=== PATIENT | male | born 1960 | race Caucasian/White ===

== ENCOUNTER 2020-06-15 09:33 | Inpatient (IN) ==
--- NOTE | 2020-05-20 14:44 | PAT Medication Instructions ---
Medication Instructions Date of Service May 20, 2020 Home Medications aspirin 81 mg tablet,delayed release 81 mg PO QAM carvedilol 6.25 mg tablet 6.25 mg PO BID losartan 50 mg tablet 50 mg PO BID hydrochlorothiazide 12.5 mg tablet 12.5 mg PO QAM DO NOT take the morning of surgery losartan 50 mg tablet 50 mg PO BID hydrochlorothiazide 12.5 mg tablet 12.5 mg PO QAM Take morning of surgery With a small sip of water, OTHERWISE NOTHING TO EAT OR DRINK AFTER MIDNIGHT: aspirin 81 mg tablet,delayed release 81 mg PO QAM carvedilol 6.25 mg tablet 6.25 mg PO BID Take evening before surgery carvedilol 6.25 mg tablet 6.25 mg PO BID losartan 50 mg tablet 50 mg PO BID Other Notes If you have any questions please call us at [phone] or [phone] or [phone] or [phone]
--- NOTE | 2020-05-26 09:29 | Anesthesiology Consultation ---
Date of Service May 26, 2020 Assessment & Plan (1) Encounter for pre-operative examination: Chart Review Chart Review: Pending: Refer to Additional Notes / Consult section (pending PCP clearance 06/10 and preop Covid testing) and Patient seen in Pre Admission Testing Awaiting surgeon ordered PCP clearance scheduled 06/10 Per PAT appt on 05/26/20, patient denies any recent travel. No known Covid positive contacts or Covid related symptoms. No known Covid infection in the past 90 days. Preop Covid testing scheduled 06/10/20= will await results. Educated on importance of self quarantining, social distancing and wearing mask in public both for the patient and household contacts. Excision of gluteal cyst 10/18/18= Done under [facility] with LMA #5. Teaching & Discussion Pre-Anesthesia Teaching/Discussion Notes: Instructed NPO after midnight before surgery,except medications with 15 cc of water. Medication instructions provided according to the PAT guidelines. History Surgery Operation Date: 06/15/20 07:45 Proposed Procedures p L3-S1 Decompression and Fusion Spinal Cord Monitoring - Brad Dunbar DO Height/Weight Height: 5 ft 11 in Weight: 120.4 kg Allergies Allergy/AdvReac Type Severity Reaction Status Date / Time No Known Allergies Allergy Verified 05/06/20 12:39 Medications Home Medications Medication Instructions Recorded Confirmed Last Taken aspirin 81 mg tablet,delayed 81 mg PO QAM tab 09/28/18 05/06/20 09/11/19 08:00 release carvedilol 6.25 mg tablet 6.25 mg PO BID tab 09/28/18 05/06/20 09/18/19 06:30 losartan 50 mg tablet 50 mg PO BID tab 09/28/18 05/06/20 09/18/19 06:30 hydrochlorothiazide 12.5 mg tablet 12.5 mg PO QAM 03/30/20 05/06/20 Unknown Past Medical History Medical History Chronic back pain History of prostate cancer dx 03/2019. s/p radiation therapy (completed 04/27/2020) No issues currently Hypertension Obesity Exercise / Class Metabolic Activity II 4-5 Yardwork/Stairs/Walk up hill (ONE FLIGHT OF STAIRS - NO CHEST PAIN OR SOB ) Past Family History Family History Mother , age 81 heart disease FHx: abdominal aortic aneurysm Hypertension Father , lived with prostate cancer 35 years, age 99 old age Prostate cancer Brother Prostate cancer Sister Family hx colonic polyps PRE CANCEROUS POLYP Brother Prostate cancer age 65-had prostate removed, still alive and well Sister No problems noted. Sister Family hx colonic polyps Son No problems noted. Son No problems noted. Daughter No problems noted. Other No family history of adverse response to anesthesia Denies family history of Ovarian cancer Myocardial infarction Breast cancer Colorectal cancer Past Surgical History Surgical History H/O elbow surgery RIGHT ELBOW TENDON REPAIR, 2006 H/O excision of mass (10/18/18) Excision of Gluteal Cyst Dr. Ma 10-18-18-NO DIFFICULTY WITH ANESTHESIA THIS TIME-[facility] H/O retained foreign body fully removed [id number] related from welding History of back surgery 2009 Dr. Prescott & 2014 Dr. Dunbar History of colonoscopy (09/18/19) tubular adenoma and tubulovillous adenoma resected, recheck 3 years, Dr. Blanc History of difficult intubation T5 kyphoplasty with biopsy: 09/16/14: Grade view 1, Glidescope#4, ETT 7.5 at [facility] History of discectomy LUMBAR DISCECTOMY/LAMINECTOMY 2009 & 2014 History of herniorrhaphy RIGHT INGUINAL HERNIA-1989 History of kyphoplasty History of prostate biopsy History of tonsillectomy as a child Past Anesthesia History No Hx of Anesthesia Complications, Difficult Airway (per records ) and No Family Hx of Anesthesia Complications History of PONV No Hx of PONV and No Hx of Motion Sickness Social History Smoking Status: Never smoker tobacco type: smokeless tobacco Do You Dip or Chew Tobacco: No (quit 3 years ago) Hx Alcohol Use: Yes Alcohol type: beer alcohol intake frequency: a few times a week Hx Substance Use: No substance use type: does not use Review of Systems Occ snoring - no witnessed apnea. No hx of sleep study Patient denies chest pain, shortness of breath, dyspnea on exertion, reflux, cough, wheezing, palpitations. No hx of seizures, stroke, PA. No hx of blood clots or blood transfusions Physical Exam Vital Signs VITALS BP 136//84 P 64 TEMP 98.4 SP02 97% RESP 16 Constitutional no acute distress ENMT Mouth: + small oral opening; no TMJ clicking Thyromental Distance: < 3.5 Finger Breadths (2.5) Mallampati Class: III Missing right top side tooth Possible top front teeth crowned Molars crowned Missing molars Neck + short neck, + thick neck, + limited neck extension (mild ) and + facial hair (encouraged trimmed/shaved facial hair ) Respiratory normal respiratory effort; no respiratory distress Auscultation: lungs clear to auscultation bilaterally; no wheezes Cardiovascular Rate/Rhythm: regular rate and regular rhythm Heart Sounds: no murmur Vessels: no carotid bruit Musculoskeletal Spine: no pain with cervical ROM Extremities: extremities normal to inspection Psychiatric Orientation: alert Testing Laboratory Results 05/26/20 09:49 05/26/20 09:49 PT 10.3 Seconds (9.0-12.0) 05/26/20 09:49 INR 1.0 (0.9-1.1) 05/26/20 09:49 APTT 26.7 Seconds (21.0-31.0) 05/26/20 09:49 Urine Color Yellow 05/26/20 Unknown Urine Appearance Clear (Clear) 05/26/20 Unknown Urine pH 7.0 (4.5-7.5) 05/26/20 Unknown Ur Specific [place] 1.019 (1.000-1.030) 05/26/20 Unknown Urine Protein 1+ (Negative) H 05/26/20 Unknown Urine Glucose (UA) Negative (Negative) 05/26/20 Unknown Urine Ketones Negative (Negative) 05/26/20 Unknown Urine Nitrite Negative (Negative) 05/26/20 Unknown Ur Leukocyte Esterase Trace (Negative) H 05/26/20 Unknown Urine WBC (Auto) 5-10 /hpf (0-5) H 05/26/20 Unknown Urine RBC (Auto) 0-4 /hpf (0-4) 05/26/20 Unknown U Hyaline Cast (Auto) 1-5 /lpf (0-5) 05/26/20 Unknown U Epithel Cells (Auto) 5-10 /lpf (0-5) H 05/26/20 Unknown Urine Bacteria (Auto) Negative (Negative) 05/26/20 Unknown Blood Type O Negative 05/26/20 09:49 Antibody Screen NEGATIVE 05/26/20 09:49 Electrocardiogram Date: 05/26/20 Findings: + SB @ (59bpm) Otherwise normal EKG per cardio. Chest X-Ray Date: 05/26/20 Findings: + NAD Echocardiogram Date: 12/16/19 EF: 55-59% LV Function: normal RWMA: + none Other Findings: + LVH (Mild/concentric) and + diastolic dysfunction (Grade 2) Valvular Disease: + MR (Mild) Aortic root is mildly enlarged with diameter 4.3 cm. Small anterior loculated pericardial effusion is present. Cardiac tamponade is absent. Compared to the prior study dated 10/31/2017, the aortic root diameter was 4.2 cm at that time. A small loculated pericardial effusion is not present. ECHO 01/29/20 (to rule out pericarditis and monitor pericardial effusion)= Compared to last available study, there has been no interval change. Small, loculated anterior pericardial effusion remains unchanged. Tamponade physiology is absent.
--- NOTE | 2020-05-26 10:13 | XRay Report ---
XR chest Pre-admission PA/Lat CLINICAL HISTORY: Preoperative chest COMPARISON STUDY: 09/05/2014 FINDINGS: The cardiac and mediastinal contours are normal. There is no evidence of focal pulmonary co nsolidation. There is no evidence of failure. No pleural effusions are visualized.[There is evidence for a mid to upper thoracic vertebral body compression fracture with prior vertebroplasty. IMPRESSION: No active disease in the chest. ACT 112: Negative or not required by law. Electronically signed by: Frank Araiza M.D. 05/26/2020 10:12 AM
[2020-05-26 11:05] LABS: Basophils # (auto) 0.04 K/uL (0-0.2); Basophils % (auto) 0.5 %; Eosinophils # (auto) 0.19 K/uL (0-0.5); Eosinophils % (auto) 2.4 %; Hematocrit (blood only) 43.8 % (42-52); Hemoglobin 15.3 g/dL (14.0-18.0); Immature Granulocytes # (auto) 0.01 K/uL (0.00-0.02); Immature Granulocytes % (auto) 0.1 %; Lymphocytes # (auto) 0.66 K/uL (1.2-3.4); Lymphocytes % (auto) 8.4 %; Mean Corpuscular Hemoglobin 34.5 pg (25-34); Mean Corpuscular Hgb Conc 34.9 g/dL (32-36); Mean Corpuscular Volume 98.6 fL (80-100); Mean Platelet Volume 10.2 fL (7.4-10.4); Monocytes # (auto) 0.77 K/uL (0.11-0.59); Monocytes % (auto) 9.8 %; Neutrophils # (auto) 6.15 K/uL (1.4-6.5); Neutrophils % (auto) 78.8 %; Platelet Count 169 K/uL (130-400); RDW Coefficient of Variation 13.1 % (11.5-14.5); RDW Standard Deviation 47.5 fL (36.4-46.3); Red Blood Count 4.44 M/uL (4.7-6.1); White Blood Count 7.82 K/uL (4.8-10.8)
[2020-05-26 11:12] LABS: Appearance Urine Clear (Clear); Bacteria Urine Automated Negative (Negative); Bilirubin Urine Negative (Negative); Blood Urine Negative (Negative); Color Urine Yellow; Glucose Urine UA Negative (Negative); Ketones Urine Negative (Negative); Leukocyte Esterase Urine Trace (Negative); Nitrite Urine Negative (Negative); Protein Urine 1+ (Negative); RBC Urine Automated 0-4 /hpf (0-4); Specific Gravity Urine 1.019 (1.000-1.030); Urobilinogen Urine Negative (Negative)
[2020-05-26 11:19] LABS: Partial Thromboplastin Time 26.7 Seconds (21.0-31.0); Prothrombin Time 10.3 Seconds (9.0-12.0)
[2020-05-26 12:09] LABS: BUN Creatinine Ratio 10.5 (10-20); Calcium 10.1 mg/dl (8.5-10.1); Creatinine Clr Calc Pharmacy 90.3 ml/min; Est GFR (African American) 81.2; Potassium 4.4 mmol/L (3.5-5.1)
--- NOTE | 2020-05-27 06:12 | Electrocardiogram Report ---
Test Reason : Blood Pressure : / mmHG Vent. Rate : 059 BPM Atrial Rate : 059 BPM P-R Int : 196 ms QRS Dur : 088 ms QT Int : 426 ms P-R-T Axes : 058 075 078 degrees QTc Int : 421 ms Sinus bradycardia Otherwise normal ECG When compared with ECG of 11-OCT-2018 07:54, No significant change was found Confirmed by Ran Wilcox ([id number]) on 05/27/2020 6:12:21 AM Referred By: Brad Dunbar Confirmed By:Ran Wilcox
[~2020-06-15 09:33] MED LIST: ACETAMINOPHEN 500 MG TAB PO SCH; CeleBREX 200 MG CAP PO SCH; GABAPENTIN 600 MG DOSE PO SCH; LR 15ML/HR IV SCH
[2020-06-15] MEDS ORDERED: ceFAZolin 3000MG/72.5 ML BAG IV ONE (09:53)
[2020-06-15] MEDS ORDERED: LABETALOL HCL IV 5 MG/ML 20ML IV PRN (10:49)
[2020-06-15] MEDS ORDERED: PROMETHAZINE HCL 12.5 MG in SODIUM CHLORIDE 0.9% 50 ML IV PRN ×2 (10:49→16:05)
[2020-06-15] MEDS ORDERED: ATROPINE SULFATE 0.1 MG/ML 10ML SYR IV PRN (10:49)
[2020-06-15] MEDS ORDERED: ePHEDrine sulfate 50 MG/ML AMP IV PRN (10:49)
[2020-06-15] MEDS ORDERED: ONDANSETRON INJ 2 MG/ML 2 ML VIAL IV PRN ×2 (10:49→16:05)
[2020-06-15] MEDS ORDERED: FLUMAZENIL 0.1 MG/1 ML 10 ML VIAL IV PRN (10:49)
[2020-06-15] MEDS ORDERED: NALOXONE HCL 0.4 MG/1 ML VIAL/CARP IV PRN ×2 (10:49→16:05)
[2020-06-15] MEDS ORDERED: fentaNYL citrate 100 MCG/2 ML VIAL IV PRN (10:49)
[2020-06-15] MEDS ORDERED: HYDROmorphone INJ 1 MG/ML SYRINGE IV PRN ×2 (10:49→16:05)
--- NOTE | 2020-06-15 11:08 | History & Physical Bridge Note ---
Date of Service June 15, 2020 History & Physical Bridge Note I have examined the patient, reviewed the History & Physical and in the interval since the performance of the History & Physical I have noted the following changes of clinical significance: no changes noted
--- NOTE | 2020-06-15 11:09 | History & Physical Report ---
Date of Service June 15, 2020 Assessment & Plan (1) Neurogenic claudication due to lumbar spinal stenosis: Admission and Anticipated Discharge Date Admission Date: L3-S1 decompression fusion History of Present Illness Chief Complaint: Back and bilateral leg pain Primary Care Provider: Edwin Guzman MD This is a 60-year-old male who presents with chronic persistent back and bilateral leg pain. Failing since course of nonoperative care is here for surgical invention. Allergies Allergy/AdvReac Type Severity Reaction Status Date / Time No Known Allergies Allergy Verified 06/15/20 10:03 Home Medications Medication Instructions Recorded Confirmed Type aspirin 81 mg tablet,delayed 81 mg PO QAM tab 09/28/18 06/15/20 History release carvedilol 6.25 mg tablet 6.25 mg PO BID tab 09/28/18 06/15/20 History losartan 50 mg tablet 50 mg PO BID tab 09/28/18 06/15/20 History hydrochlorothiazide 12.5 mg tablet 12.5 mg PO QAM 03/30/20 06/15/20 History Past Med/Surg History Medical History (Updated 06/15/20 @ 11:09 by Brad Dunbar, DO) Aortic root dilatation 4.3cm per 12/2019 ECHO Chronic back pain Dyslipidemia Borderline History of prostate cancer dx 03/2019. s/p radiation therapy (completed 04/27/2020) No issues currently Hypertension Obesity Surgical History H/O elbow surgery RIGHT ELBOW TENDON REPAIR, 2006 H/O excision of mass (10/18/18) Excision of Gluteal Cyst Dr. Ma 8-8--NO DIFFICULTY WITH ANESTHESIA THIS TIME-[facility] H/O retained foreign body fully removed [id number] related from welding History of back surgery 2009 Dr. Prescott & 2014 Dr. Dunbar History of colonoscopy (09/18/19) tubular adenoma and tubulovillous adenoma resected, recheck 3 years, Case History of difficult intubation T5 kyphoplasty with biopsy: 09/16/14: Grade view 1, Glidescope#4, ETT 7.5 at [facility] History of discectomy LUMBAR DISCECTOMY/LAMINECTOMY 2009 & 2014 History of herniorrhaphy RIGHT INGUINAL HERNIA-1989 History of kyphoplasty History of prostate biopsy History of tonsillectomy as a child Family History Mother FHx: abdominal aortic aneurysm Hypertension Father Prostate cancer Brother Prostate cancer Sister Family hx colonic polyps Brother Prostate cancer Sister No problems noted. Sister Family hx colonic polyps Son No problems noted. Son No problems noted. Daughter No problems noted. Other No family history of adverse response to anesthesia Denies family history of Ovarian cancer Myocardial infarction Breast cancer Colorectal cancer Social History Smoking Status: Never smoker Second Hand Exposure: No; Do You Dip or Chew Tobacco: No (quit 3 years ago); Tobacco Cessation Education Requested by Patient: No Hx Alcohol Use: Yes Alcohol type: beer Hx Substance Use: No Preferred Language: Faroese Communication Ability: Effective Visual Impairment: No Limitations Hearing Ability: Normal Inseamer Required: No Beliefs That Will Affect Care: None marital status: Current Living Situation: Spouse and Family current occupational status: retired 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
[2020-06-15] MEDS ORDERED: BACITRACIN INJ 50,000 UNIT VIAL ONE (11:19)
[2020-06-15] MEDS ORDERED: BUPIVACAINE/EPINEPHRINE 0.5% MPF 1:200,000 30 ML VIAL ONE (11:19)
[2020-06-15] MEDS ORDERED: MIDAZOLAM HCL 1 MG/ML 2ML VIAL ONE (11:24)
[2020-06-15] MEDS ORDERED: fentaNYL citrate 100 MCG/2 ML VIAL ONE (11:25)
[2020-06-15] MEDS ORDERED: SUCCINYLCHOLINE CHLORIDE 20 MG/ML 10 ML VIAL IV ONE (12:02)
[2020-06-15] MEDS ORDERED: ROCURONIUM BROMIDE 10 MG/ML 5 ML VIAL IV ONE ×5 (12:06→12:07)
[2020-06-15] MEDS ORDERED: HYDROmorphone INJ 2 MG/ML SYR/VIAL ONE (12:07)
[2020-06-15] MEDS ORDERED: DEXAMETHASONE SOD INJ 4 MG/ML VIAL ONE (12:09)
[2020-06-15] MEDS ORDERED: ONDANSETRON INJ 2 MG/ML 2 ML VIAL ONE (12:09)
[2020-06-15] MEDS ORDERED: METOCLOPRAMIDE HCL INJ 5 MG/ML 2 ML VIAL ONE (12:09)
[2020-06-15] MEDS ORDERED: PHENYLEPHRINE 100MCG/ML 5ML SYR ONE (12:09)
[2020-06-15] MEDS ORDERED: FLOSEAL HEMOSTATIC MATRIX 10ML TOP ONE (12:22)
[2020-06-15] MEDS ORDERED: ePHEDrine sulfate 50 MG/ML SYR ONE ×2 (12:27→13:37)
[2020-06-15] MEDS ORDERED: SUGAMMADEX SODIUM 200 MG/2 ML VIAL IV ONE (13:59)
--- NOTE | 2020-06-15 14:04 | Operative Report ---
Post Operative Report Pre & Post Diagnosis Operation Date: 06/15/20 11:25 Pre-Op Diagnosis: Spinal Stenosis Lumbar Region with Neurogenic Claudication Post-Op Diagnosis: Spinal Stenosis Lumbar Region with Neurogenic Claudication I identified the patient and participated in the time-out.: Yes Procedure Operation Date: 06/15/20 11:25 Actual Procedures #1 Revision decompression with bilateral medial facetectomies and foraminotomies L2-3, L3-4, L4-5 and L5-S1. #2 posterior spinal fusion L3-S1. #3 placement posterior segmental instrumentation L3-S1. #4 interbody fusion L4- 5 and L5-S1. #5 placement peek cage 10 x 26 mm L4-5 and 10 x 26 mm at L5-S1. #6 placement locally harvested morselized autograft in the posterior lateral gutters. #7 placement infuse collagen sponge, master graft in the posterior lateral gutters and I factor in the interbody space. Surgeon Brad Dunbar, DO Coach Mechanic Margarita Hilton Estimated Blood Loss 630 Findings See Below The patient is 5 foot 11 inches tall weighing over 121 kg with a BMI in excess of 37. This combined with an EBL greater than 600 cc created significant technical difficulty. He required her deepest retractors and longest instruments in order to perform his procedure. This at least 50% increase to the operative time. Specimens None Indications This is a 60-year-old male who presents above-mentioned diagnosis after failing since course of nonoperative care is here for surgical intervention. Description of Procedure Patient was met with identified informed consent obtained. Patient was then taken to the operative suite underwent a patient placed in a prone position the Morris table top Lalo frame. All bony prominences well-padded eyes inspected to ensure no external pressure placed upon the. This point lumbar spine was prepped and draped in normal sterile fashion. Sharp dissection with the assistance of Bovie cautery performed down to and exposing the remaining lamina and transverse processes of L3-L4-L5 and sacral ala bilaterally. From caudal to cephalad fashion revision complete laminectomy of L5 L4 L3 and partial laminectomy of L2 was performed including bilateral medial facetectomies and foraminotomies addressing severe spinal stenosis. Pedicle screws were then pl aced in L3-L4-L5 and S1 levels with the assistance of fluoroscopy and the purposes gabrielle placed. By way of a transfemoral approach on right a complete discectomy of L5-S1 was performed endplates curetted to subcortical bleeding bone and a 10 x 26 mm peek cage filled with I factor tapped into position. Then proceeded L4-L5 again by way of a transforaminal portion right complete discectomy performed endplates curetted to subcortical bleeding bone and again an 11 x 26 mm peek cage filled with I factor was tapped in position. The rods were then locked into final position bilaterally. The transverse processes of L3-L4-L5 and sacral ala burred to subcortical bleeding bone. Infuse collagen sponge combined master graft local autograft was then placed in the posterior gutters. 15 round GABE drain inserted. The incision was then closed with 1 Vicryl fascia 2-0 Vicryl subcutaneously and 4 Monocryl for final skin closure. Steri-Strip sterile dressings placed. Patient waken taken to PACU stable condition. Please note spinal cord monitoring was utilized at the procedure no changes noted. Lastly Margarita Hilton was present at the entire procedure involved the patient positioning complex portions of the surgery and final skin closure. I attest to the content of the Intraoperative Record and any orders documented therein. Any exceptions are noted below.
[2020-06-15] MEDS ORDERED: KETOROLAC 30 MG/ML VIAL ONE (14:06)
--- NOTE | 2020-06-15 14:16 | Fluoroscopy Report ---
FL lumbar spine 2-3V CLINICAL HISTORY: L3-S1 DECOMPRESSION AND FUSION COMPARISON STUDY: Lumbar spine radiographs May 09, 2014. FLUOROSCOPY TIME: 26 seconds. FLUOROSCOPIC IMAGES: 2 FINDINGS: Fluoroscopy was provided during L4-L5 and L5-S1 discectomies with interbody spacer placemen t. Posterior decompression is noted. There are bilateral pedicle screws at the L3, L4, L5 and S1 leve ls. Hardware is intact. IMPRESSION: Fluoroscopy provided during L4-L5 and L5-S1 discectomies with posterior decompression an d L3-S1 bilateral pedicle screw fusion. ACT 112: Negative or not required by law. Electronically signed by: Som Tong M.D. 06/15/2020 2:14 PM
--- NOTE | 2020-06-15 15:08 | Anesthesiology Progress Note ---
Date of Service June 15, 2020 Anesthesia Post Procedure Vital Signs Vital Signs: Temp Pulse Pulse Resp BP Pulse Ox 06/15/20 14:55 79 16 124/82 99 06/15/20 14:45 75 16 132/94 99 06/15/20 14:35 36.6 C 90 16 148/89 H 99 06/15/20 14:29 36.6 C 91 H 16 160/96 H 97 06/15/20 10:05 36.8 C 66 18 178/89 H 96 Transfer of Care Handoff Completed per policy Notes Mental Status: alert / awake / arousable Patient Amnestic to Procedure: Yes Nausea / Vomiting: adequately controlled Pain: adequately controlled Airway Patency, RR, SpO2: stable & adequate BP & HR: stable & adequate Hydration State: stable & adequate Anesthetic Complications: no major complications apparent
[2020-06-15 15:16] LABS: Hematocrit (blood only) 40.2 % (42-52); Hemoglobin 14.4 g/dL (14.0-18.0)
[2020-06-15] MEDS ORDERED: ACETAMINOPHEN 500 MG TAB PO PRN (16:05)
[2020-06-15] MEDS ORDERED: DO NOT ADMINISTER PNEUMOCOCCAL VACCINE PRN (16:05)
[2020-06-15] MEDS ORDERED: HYDROmorphone INJ 0.5 MG/0.5 ML SYR IV PRN (16:05)
[2020-06-15] MEDS ORDERED: bisacodyL 10 MG SUPP PR PRN (16:05)
[2020-06-15] MEDS ORDERED: hydrOXYzine HCl 25 MG TAB PO PRN (16:05)
[2020-06-15] MEDS ORDERED: ONDANSETRON 4 MG OD TAB PO PRN (16:05)
[2020-06-15] MEDS ORDERED: traMADol HCL 50 MG TABLET PO PRN (16:05)
[2020-06-15] MEDS ORDERED: FAMOTIDINE 20 MG TAB PO PRN (16:05)
[2020-06-15] MEDS ORDERED: LORazepam 0.5 MG TAB PO PRN (16:05)
[2020-06-15] MEDS ORDERED: LORazepam 0.5 MG/1 ML VIAL IV PRN (16:05)
[2020-06-15] MEDS ORDERED: DO NOT ADMINISTER FLU VACCINE PRN (16:05)
[2020-06-15] MEDS ORDERED: MAGNESIUM HYDROXIDE SUSP 30 ML UDC PO PRN (16:05)
[2020-06-15] MEDS ORDERED: diphenhydrAMINE Capsule 25 MG CAP PO PRN (16:05)
[2020-06-15] MEDS ORDERED: SOD PHOSPHATE/SOD BIPHOSPHATE ENEMA 132 ML BTL PR PRN (16:05)
[2020-06-15] MEDS ORDERED: METOCLOPRAMIDE HCL INJ 5 MG/ML 2 ML VIAL IV PRN (16:05)
[2020-06-15] MEDS ORDERED: ALUMINUM/MAGNESIUM SUSP 30 ML UDC PO PRN (16:05)
[2020-06-15] MEDS ORDERED: ACETAMINOPHEN 1,000 MG/100 ML VIAL IV PRN (16:05)
[2020-06-15] MEDS: KETOROLAC TROMETHAMINE 15 MG/ML VIAL IV SCH ×2 (16:58→22:23)
--- NOTE | 2020-06-15 17:20 | Hospitalist Consultation ---
Date of Consultation June 15, 2020 Assessment & Plan (1) Neurogenic claudication due to lumbar spinal stenosis: * POD#0 s/p: * #1 Revision decompression with bilateral medial facetectomies and foraminotomies L2-3, L3-4, L4-5 and L5-S1. #2 posterior spinal fusion L3-S1. #3 placement posterior segmental instrumentation L3-S1. #4 interbody fusion L4-5 and L5-S1. #5 placement peek cage 10 x 26 mm L4-5 and 10 x 26 mm at L5- S1. #6 placement locally harvested morselized autograft in the posterior lateral gutters. #7 placement infuse collagen sponge, master graft in the posterior lateral gutters and I factor in the interbody space. * PT/OT/pain management/bowel regimen per primary service * Pre-op h/h 15.3/43.8. EBL 630cc with repeat h/h 14.4/40 and will monitor on AM CBC (2) Hypertension: * Chronic. Follows with [facility]. Had seen incidental dilated aortic root 4.3cm on most recent echo with small incidental pericardial effusion (unchanged on repeat ECHO) * On carvedilol 6.25mg BID, HCTZ 12.5mg and losartan 50mg BID --> of note, most recent cardiology notes show increase in HCTZ to 25mg daily for elevated BPs * Will hold HCTZ and Losartan post-operatively (BP 117/76 but currently 131/86) and will resume in AM if BP tolerates and kidney function stable * Also on ASA 81mg daily for prevention -- will check with Dr. Dunbar about giving this as already ordered for AM (3) Prostate cancer: * s/p TURP Mar 2019 and completed radiation therapy Apr [address] Pardo and to have surveillence with PSA's in 3 months from that time * Has not needed any medications to help with flow * Monitor UO after alvarado d/c'd (4) DVT prophylaxis: * SCDs, clinton diggs * chemoprophylaxis held in setting of back surgery Dispo: plans for d/c home possible per his conversation with Dr. Dunbar Thank you for allowing hospitalist service to participate in the care of Mr. Valente. Hospitalist service will follow along. Supervising Physician Co-Signing Physician Notes Patient was seen and examined independently I discussed the case with Monica valdez PAC I reviewed pertinent past medical social family history and also the plan of care and agree with the plan of care. Patient underwent L3 S1 decompression fusion with Dr. Dunbar. Has a history of prostate cancer status post resection and radiation. Hypertension. Follows [facility] cardiology. And dilated aortic root which is unchanged on last imaging study. We will hold antihypertensives and diuretics in the morning continuing a beta-cuate of carvedilol and aspirin is continued after confirming Dr. Dunbar he is okay with that. Examination is unremarkable heart is regular lungs are clear he has good distal strength and sensation in his lower extremities Any exceptions will be noted below History of Present Illness Reason for Consultation: medical management Requesting Physician: Dr Dunbar Attending Physician: Brad Dunbar, History of Present Illness 60 year old male with PMHx significant for HTN, Prostate CA (completed radiation, discharged Apr 2020 with survellience in 3 months PSA), low back pain presented for L3-S1 decompression/fusion with Dr. Dunbar. Seen sitting up in chair eating dinner. His primary symptom prior to surgery was weakness in his legs when standing for extended periods of time. Pain currently primarily incisional and low back pain controlled (chronic). Eating/drinking without difficulty. Maintained alvarado for now. Plans for discharge, likely per his conversation with Dr. Dunbar, to home. Will have PT/OT evals tomorrow. Discussed increased HCTZ dose by cardiology at most recent visit for elevated pressures but we will hold HCTZ/losartan unless BP becomes significantly elevated and wait for kidney function eval on AM labs and BP monitoring prior to resuming. GABE drain emptied twice since arriving back from surgery. No fever, chills, chest pain, shortness of breath, abdominal pain, nausea, vomiting or dysuria reported. Questions/concerns addressed at this time. Allergies Allergy/AdvReac Type Severity Reaction Status Date / Time No Known Allergies Allergy Verified 06/15/20 10:03 Home Medications Medication Instructions Recorded Confirmed Type aspirin 81 mg tablet,delayed 81 mg PO QAM tab 09/28/18 06/15/20 History release carvedilol 6.25 mg tablet 6.25 mg PO BID tab 09/28/18 06/15/20 History losartan 50 mg tablet 50 mg PO BID tab 09/28/18 06/15/20 History hydrochlorothiazide 12.5 mg tablet 25 mg PO QAM 03/30/20 06/15/20 History Patient History Medical History (Updated 06/15/20 @ 17:39 by Monica Valdez PA-C) Aortic root dilatation 4.3cm per 12/2019 ECHO -- unchanged on repeat prior to surgery Chronic back pain Dyslipidemia Borderline History of prostate cancer dx 03/2019. s/p radiation therapy (completed 04/27/2020) No issues currently Hypertension Obesity Surgical History H/O elbow surgery RIGHT ELBOW TENDON REPAIR, 2006 H/O excision of mass (10/18/18) Excision of Gluteal Cyst Dr. Ma 10-18-18-NO DIFFICULTY WITH ANESTHESIA THIS TIME-[facility] H/O retained foreign body fully removed [id number] related from welding History of back surgery 2009 Dr. Prescott & 2014 Dr. Dunbar History of colonoscopy (09/18/19) tubular adenoma and tubulovillous adenoma resected, recheck 3 years, Case History of difficult intubation T5 kyphoplasty with biopsy: 09/16/14: Grade view 1, Glidescope#4, ETT 7.5 at [facility] History of discectomy LUMBAR DISCECTOMY/LAMINECTOMY 2009 & 2014 History of herniorrhaphy RIGHT INGUINAL HERNIA-1989 History of kyphoplasty History of prostate biopsy History of tonsillectomy as a child Family History Mother , age 81 heart disease FHx: abdominal aortic aneurysm Hypertension Father , lived with prostate cancer 35 years, age 99 old age Prostate cancer Brother Prostate cancer Sister Family hx colonic polyps PRE CANCEROUS POLYP Brother Prostate cancer age 65-had prostate removed, still alive and well Sister No problems noted. Sister Family hx colonic polyps Son No problems noted. Son No problems noted. Daughter No problems noted. Other No family history of adverse response to anesthesia Denies family history of Ovarian cancer Myocardial infarction Breast cancer Colorectal cancer Social History Smoking Status: Never smoker Second Hand Exposure: No; Do You Dip or Chew Tobacco: No (quit 3 years ago); Tobacco Cessation Education Requested by Patient: No Hx Alcohol Use: Yes Alcohol type: beer Hx Substance Use: No Preferred Language: Sami Communication Ability: Effective Visual Impairment: No Limitations Hearing Ability: Normal Government Auditor Required: No Beliefs That Will Affect Care: None marital status: Current Living Situation: Spouse and Family current occupational status: retired 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 [employer] Feels Safe at Home: Yes Safety Concerns: Feels Safe At This Time during the past year weight has: remained stable Dental Care, Regularly: No Physical Activity Frequency: 1-2 Times per Week Assistive Devices: Walker Review of Systems Review of Systems: All systems reviewed & are unremarkable except as noted in HPI & below Physical Exam Constitutional: WD/WN, vitals as above + obese, cooperative and comfortable; no acute distress Eyes: + anicteric sclerae and PERRL ENMT: Ears: no hearing impairment and no external ear abnormality Neck: normal visual inspection and trachea midline Respiratory: normal respiratory effort, lungs clear to auscultation Auscultation: + diminished lung sounds (bases) Cardiovascular: RRR, no murmur, no edema Gastrointestinal (Abdomen): normal bowel sounds, soft, nontender, no hepatosplenomegaly Musculoskeletal: no cyanosis or clubbing, extremities motor strength 5/5 (GABE drain with 50cc bloody drainage. dressing to lumbar spine c/d/i) NVI, pulses palpable bilaterally 5/5 dorsiflexion/plantar flexion and flexion/extension at knee and hip slightly tender to palpation around incision Skin: no rashes, warm and dry Neurologic: patellar DTR's 2+ bilat, sensation intact and PERRL, EOMI, accommodation nl, no face palsy, no dysarthria Psychiatric: A+Ox3, euthymic affect Genitourinary: alvarado draining yellow urine Results & Data Results & Data ([facility]) Vital Signs (Past 12 Hours) Vital Signs Temp Pulse Pulse Resp BP BP Pulse Ox 06/15/20 16:34 36.5 C 71 16 117/76 95 06/15/20 16:07 36.5 C 73 18 131/84 98 06/15/20 15:30 36.8 C 77 18 122/84 98 06/15/20 15:15 36.6 C 71 16 133/66 98 06/15/20 15:05 36.6 C 72 16 128/75 98 06/15/20 14:55 79 16 124/82 99 06/15/20 14:45 75 16 132/94 99 06/15/20 14:35 36.6 C 90 16 148/89 H 99 06/15/20 14:29 36.6 C 91 H 16 160/96 H 97 06/15/20 10:05 36.8 C 66 18 178/89 H 96 PG Care Time/CCT Total # of Minutes Spent Total Time Spent with Patient: Total time spent is greater than 50% in coordination of care (as documented) at patient's floor/unit and/or counseling patient: Coding Level of Care Code 24549 Inpt Consult Level 3 Diagnoses Neurogenic claudication due to lumbar spinal stenosis M48.062 Hypertension I10 Prostate cancer C61 DVT prophylaxis Z29.9
[2020-06-15] MEDS ORDERED: hydrALAZINE HCL 20 MG/ML VIAL IV PRN (17:46)
[2020-06-15] MEDS: ceFAZolin 2000MG 2,000 MG/15 ML SYR IV SCH (18:02)
[2020-06-15] MEDS: LACTATED RINGER'S 1,000 ML IV SCH ×2 (18:03→23:04)
[2020-06-15] MEDS: DOCUSATE SODIUM/SENNA 50/8.6MG TAB PO SCH (21:06)
[2020-06-15] MEDS: carvediloL 6.25 MG TAB PO SCH (21:06)
[2020-06-16] MEDS: ceFAZolin 2000MG 2,000 MG/15 ML SYR IV SCH (02:00)
[2020-06-16] MEDS: KETOROLAC TROMETHAMINE 15 MG/ML VIAL IV SCH ×2 (05:23→11:10)
[2020-06-16] MEDS: POLYETHYLENE (MIRALAX) 17 GM PACK PO SCH ×3 (05:23→17:26)
[2020-06-16] MEDS: LACTATED RINGER'S 1,000 ML IV SCH (06:00)
[2020-06-16 06:02] LABS: Basophils # (auto) 0.01 K/uL (0-0.2); Basophils % (auto) 0.1 %; Hematocrit (blood only) 34.2 % (42-52); Hemoglobin 11.8 g/dL (14.0-18.0); Immature Granulocytes # (auto) 0.01 K/uL (0.00-0.02); Immature Granulocytes % (auto) 0.1 %; Lymphocytes # (auto) 0.41 K/uL (1.2-3.4); Lymphocytes % (auto) 3.4 %; Mean Corpuscular Hemoglobin 33.8 pg (25-34); Mean Corpuscular Hgb Conc 34.5 g/dL (32-36); Mean Platelet Volume 10.4 fL (7.4-10.4); Monocytes # (auto) 0.74 K/uL (0.11-0.59); Monocytes % (auto) 6.1 %; Neutrophils # (auto) 10.98 K/uL (1.4-6.5); Neutrophils % (auto) 90.3 %; Platelet Count 129 K/uL (130-400); RDW Coefficient of Variation 12.9 % (11.5-14.5); RDW Standard Deviation 46.3 fL (36.4-46.3); Red Blood Count 3.49 M/uL (4.7-6.1); White Blood Count 12.15 K/uL (4.8-10.8)
[2020-06-16 06:36] LABS: BUN Creatinine Ratio 16.7 (10-20); Calcium 8.5 mg/dl (8.5-10.1); Creatinine Clr Calc Pharmacy 80.6 ml/min; Est GFR (African American) 70.4; Est GFR (Non-African American) 60.7; Potassium 4.7 mmol/L (3.5-5.1)
[2020-06-16] MEDS: ASPIRIN 81 MG ECTAB PO SCH (08:12)
[2020-06-16] MEDS: carvediloL 6.25 MG TAB PO SCH ×2 (08:12→22:07)
--- NOTE | 2020-06-16 08:19 | Hospitalist Progress Note ---
Date of Service June 16, 2020 Assessment & Plan (1) Neurogenic claudication due to lumbar spinal stenosis: * POD#1 s/p: * #1 Revision decompression with bilateral medial facetectomies and foraminotomies L2-3, L3-4, L4-5 and L5-S1. #2 posterior spinal fusion L3-S1. #3 placement posterior segmental instrumentation L3-S1. #4 interbody fusion L4-5 and L5-S1. #5 placement peek cage 10 x 26 mm L4-5 and 10 x 26 mm at L5- S1. #6 placement locally harvested morselized autograft in the posterior lateral gutters. #7 placement infuse collagen sponge, master graft in the posterior lateral gutters and I factor in the interbody space. * PT/OT/pain management/bowel regimen per primary service * Pre-op h/h 15.3/43.8. EBL 630cc + 595cc GABE output so far * Repeat h/h 11.8/34.2 -- acute blood loss anemia from surgery along with dilutional effect from IVF (500cc yesterday and additional 500cc for today) * WBC 12 -- ?stress from surgery as patient did not appear to get steroids. Afebrile. * Continue to monitor CBC in AM (2) Hypertension: * Chronic. Follows with [facility]. 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 * --> Will hold AM HCTZ 25mg but will resume Losartan for this evening as 500cc IVF ordered as well and patient encouraged to push oral fluids today * Also on ASA 81mg daily for prevention, continued as per discussion with Dr. Bettina CASTELLANOS (3) Prostate cancer: * s/p TURP Mar 2019 and completed radiation therapy Apr [address] Pardo and to have surveillence with PSA's in 3 months from that time * Has not needed any medications to help with flow * * --> Low output and placed on gentle IVF post-operatively with improvement of UO * Gonzalez discontinued TODAY --> HAS NOT VOIDED YET. * Continue to monitor -- UA pre-op with leuk est, WBC=Epi, no bacteria. No cx * Consider repeat if needed (4) DVT prophylaxis: * SCDs, clinton diggs * chemoprophylaxis held in setting of back surgery Dispo: plans for d/c home possible per his conversation with Dr. Dunbar Thank you for allowing hospitalist service to participate in the care of Mr. Valente. Hospitalist service will follow along. Admission and Anticipated Discharge Date Admission Date: June 15, 2020 Subjective Patient evaluated this morning. Doing well. Eating/drinking without difficulty. Moved his bowels. Had worked with therapy and did two laps this morning. Discomfort with bending forward but well controlled with ordered medications. Seen by Dr. Dunbar and planning on d/c home in next 1-2 days. GABE output decreased per patient as they have not had to empty as much today compared to after surgery. Discussed BP still controlled and Cr only slightly elevated and will resume his losartan this evening and HCTZ in the morning. Discussed urine output -- improved since last evening. Did have some increased pressure with gonzalez but since removed this morning feeling much better. Has not urinated since but denies increased frequency/urgency prior to procedure. Discussed pre-op UA and if develops symptoms or fever or further elevation in WBC will repeat. Encouraged PO fluid intake. No fever, chills, chest pain, shortness of breath, abdominal pain, nausea or vomiting at this time. Questions/concerns addressed. Review of Systems Review of Systems: All systems reviewed & are unremarkable except as noted in HPI & below Physical Exam Constitutional: WD/WN, vitals as above + obese, cooperative and comfortable; no acute distress Eyes: + anicteric sclerae and PERRL ENMT: Ears: no hearing impairment and no external ear abnormality Neck: normal visual inspection and trachea midline Respiratory: normal respiratory effort, lungs clear to auscultation Auscultation: + diminished lung sounds (bases) Cardiovascular: RRR, no murmur, no edema Gastrointestinal (Abdomen): normal bowel sounds, soft, nontender, no hepatosplenomegaly Musculoskeletal: no cyanosis or clubbing, extremities motor strength 5/5 (GABE drain with 50cc bloody drainage. dressing to lumbar spine c/d/i) Skin: no rashes, warm and dry Neurologic: patellar DTR's 2+ bilat, sensation intact and PERRL, EOMI, accommodation nl, no face palsy, no dysarthria Psychiatric: A+Ox3, euthymic affect Genitourinary: NO GONZALEZ Results & Data Results & Data ([facility]) Vital Signs (Past 12 Hours) Vital Signs Temp Pulse Pulse Resp BP Pulse Ox 06/16/20 07:48 36.5 C 70 18 132/80 100 06/16/20 02:40 36.5 C 67 16 112/72 98 06/15/20 22:18 36.4 C L 74 15 123/82 95 Laboratory Results 06/16/20 06/16/20 06/15/20 Range/Units 05:37 05:37 14:58 WBC 12.15 H (4.8-10.8) K/uL RBC 3.49 L (4.7-6.1) M/uL Hgb 11.8 L 14.4 (14.0-18.0) g/dL Hct 34.2 L 40.2 L (42-52) % MCV 98.0 (80-100) fL MCH 33.8 (25-34) pg MCHC 34.5 (32-36) g/dL RDW Std Deviation 46.3 (36.4-46.3) fL RDW Coeff of Jhon 12.9 (11.5-14.5) % Plt Count 129 L (130-400) K/uL MPV 10.4 (7.4-10.4) fL Immature Gran % (Auto) 0.1 % Neut % (Auto) 90.3 % Lymph % (Auto) 3.4 % [place] % (Auto) 6.1 % Eos % (Auto) 0.0 % Baso % (Auto) 0.1 % Neut # (Auto) 10.98 H (1.4-6.5) K/uL Lymph # (Auto) 0.41 L (1.2-3.4) K/uL [place] # (Auto) 0.74 H (0.11-0.59) K/uL Eos # (Auto) 0.00 (0-0.5) K/uL Baso # (Auto) 0.01 (0-0.2) K/uL Immature Gran # (Auto) 0.01 (0.00-0.02) K/uL Sodium 133 L (136-145) mmol/L Potassium 4.7 (3.5-5.1) mmol/L Chloride 99 (98-107) mmol/L Carbon Dioxide 28 (21-32) mmol/L Anion Gap 6.0 (3-11) BUN 21 H (7-18) mg/dl Creatinine 1.26 (0.6-1.4) mg/dl Est Cr Clr Drug Dosing 80.6 ml/min Est GFR ( Amer) 70.4 Est GFR (Non-Af Amer) 60.7 BUN/Creatinine Ratio 16.7 (10-20) Glucose 122 H (70-99) mg/dl Calcium 8.5 (8.5-10.1) mg/dl Hepatitis C Ab Screen (Neg) Blood Type Antibody Screen Crossmatch 06/15/20 06/15/20 Range/Units 09:55 09:55 WBC (4.8-10.8) K/uL RBC (4.7-6.1) M/uL Hgb (14.0-18.0) g/dL Hct (42-52) % MCV (80-100) fL MCH (25-34) pg MCHC (32-36) g/dL RDW Std Deviation (36.4-46.3) fL RDW Coeff of Jhon (11.5-14.5) % Plt Count (130-400) K/uL MPV (7.4-10.4) fL Immature Gran % (Auto) % Neut % (Auto) % Lymph % (Auto) % [place] % (Auto) % Eos % (Auto) % Baso % (Auto) % Neut # (Auto) (1.4-6.5) K/uL Lymph # (Auto) (1.2-3.4) K/uL [place] # (Auto) (0.11-0.59) K/uL Eos # (Auto) (0-0.5) K/uL Baso # (Auto) (0-0.2) K/uL Immature Gran # (Auto) (0.00-0.02) K/uL Sodium (136-145) mmol/L Potassium (3.5-5.1) mmol/L Chloride (98-107) mmol/L Carbon Dioxide (21-32) mmol/L Anion Gap (3-11) BUN (7-18) mg/dl Creatinine (0.6-1.4) mg/dl Est Cr Clr Drug Dosing ml/min Est GFR ( Amer) Est GFR (Non-Af Amer) BUN/Creatinine Ratio (10-20) Glucose (70-99) mg/dl Calcium (8.5-10.1) mg/dl Hepatitis C Ab Screen Neg (Neg) Blood Type O Negative Antibody Screen NEGATIVE Crossmatch See Detail PG Care Time/CCT Total # of Minutes Spent Total Time Spent with Patient: Total time spent is greater than 50% in coordination of care (as documented) at patient's floor/unit and/or counseling patient: Coding Level of Care Code 87206 Subseq Hosp Care Lvl 3 Diagnoses Neurogenic claudication due to lumbar spinal stenosis M48.062 Hypertension I10 Prostate cancer C61 DVT prophylaxis Z29.9
[2020-06-16] MEDS ORDERED: SODIUM CHLORIDE 0.9% 500 ML IV SCH (08:30)
[2020-06-16] MEDS ORDERED: hydroCHLOROthiazide 25 MG TAB PO SCH (09:00)
--- NOTE | 2020-06-16 13:04 | Orthopedic Progress Note ---
Date of Service June 16, 2020 Assessment & Plan (1) Neurogenic claudication due to lumbar spinal stenosis: Admission and Anticipated Discharge Date Admission Date: June 15, 2020 This time we will continue physical therapy monitor his GABE output hopefully discharge home in the next few days. Subjective Back pain controlled leg pain markedly improved. Physical Exam Physical Exam: Patient is in the chair at the bedside. Is good strength testing. Appears comfortable. Results & Data ([facility]) Vital Signs (Past 12 Hours) Vital Signs Temp Pulse Pulse Resp BP Pulse Ox 06/16/20 12:34 36.5 C 76 18 160/85 H 98 06/16/20 07:48 36.5 C 70 18 132/80 100 06/16/20 02:40 36.5 C 67 16 112/72 98
[2020-06-16] MEDS ORDERED: SODIUM CHLORIDE 0.9% 1000ML 500 ML IV ONE (15:58)
[2020-06-16] MEDS: DOCUSATE SODIUM/SENNA 50/8.6MG TAB PO SCH (22:07)
[2020-06-16] MEDS: oxyCODONE HCL IR 5 MG TAB (IMMEDIATE RELEASE) PO PRN (22:07)
[2020-06-16] MEDS: LOSARTAN POTASSIUM 50 MG TAB PO SCH (22:13)
[2020-06-17 06:39] LABS: Basophils # (auto) 0.01 K/uL (0-0.2); Basophils % (auto) 0.1 %; Eosinophils # (auto) 0.08 K/uL (0-0.5); Hematocrit (blood only) 34.4 % (42-52); Hemoglobin 11.8 g/dL (14.0-18.0); Immature Granulocytes # (auto) 0.01 K/uL (0.00-0.02); Immature Granulocytes % (auto) 0.1 %; Mean Corpuscular Hgb Conc 34.3 g/dL (32-36); Mean Corpuscular Volume 99.1 fL (80-100); Mean Platelet Volume 10.3 fL (7.4-10.4); Monocytes # (auto) 0.88 K/uL (0.11-0.59); Monocytes % (auto) 10.7 %; Neutrophils # (auto) 6.32 K/uL (1.4-6.5); Neutrophils % (auto) 77.1 %; Platelet Count 142 K/uL (130-400); RDW Coefficient of Variation 13.3 % (11.5-14.5); RDW Standard Deviation 47.6 fL (36.4-46.3); Red Blood Count 3.47 M/uL (4.7-6.1)
[2020-06-17] MEDS: ASPIRIN 81 MG ECTAB PO SCH (07:22)
[2020-06-17] MEDS: carvediloL 6.25 MG TAB PO SCH ×2 (07:22→20:48)
[2020-06-17] MEDS: LOSARTAN POTASSIUM 50 MG TAB PO SCH ×2 (07:22→20:48)
[2020-06-17] MEDS: dexAMETHasone 8 MG in SYRINGE 0 ML IV SCH (07:22)
[2020-06-17] MEDS: oxyCODONE HCL IR 5 MG TAB (IMMEDIATE RELEASE) PO PRN (07:24)
[2020-06-17 07:25] LABS: BUN Creatinine Ratio 18.6 (10-20); Calcium 8.7 mg/dl (8.5-10.1); Creatinine Clr Calc Pharmacy 102.6 ml/min; Est GFR (African American) 94.2; Est GFR (Non-African American) 81.3; Potassium 3.9 mmol/L (3.5-5.1)
--- NOTE | 2020-06-17 08:13 | Hospitalist Progress Note ---
Date of Service June 17, 2020 Assessment & Plan (1) Neurogenic claudication due to lumbar spinal stenosis: * POD#2 s/p: * #1 Revision decompression with bilateral medial facetectomies and foraminotomies L2-3, L3-4, L4-5 and L5-S1. #2 posterior spinal fusion L3-S1. #3 placement posterior segmental instrumentation L3-S1. #4 interbody fusion L4-5 and L5-S1. #5 placement peek cage 10 x 26 mm L4-5 and 10 x 26 mm at L5- S1. #6 placement locally harvested morselized autograft in the posterior lateral gutters. #7 placement infuse collagen sponge, master graft in the posterior lateral gutters and I factor in the interbody space. * PT/OT/pain management/bowel regimen per primary service * Pre-op h/h 15.3/43.8. EBL 630cc + 595cc GABE output on 06/16 --> decreased to 320cc today * Repeat h/h stable still at 11.8/34.4 despite getting IVF through yesterday -- acute blood loss anemia from surgery along with dilutional effect from IVF * WBC 8.2k, afebrile D/c per primary service to home pending drain output and evaluation today (2) Hypertension: * Chronic. Follows with [facility]. Had seen incidental dilated aortic root 4.3cm on most recent echo with small incidental pericardial effusion (unchanged on repeat ECHO) * On carvedilol 6.25mg BID, HCTZ 12.5mg and losartan 50mg BID --> of note, most recent cardiology notes show increase in HCTZ to 25mg daily for elevated BPs * Held HCTZ and Losartan post-operatively: * Resumed losartan last evneing for BP 156/89 * Kidney function stable but BP low normal and held HCTZ for this morning but resumed for tomorrow AM * Continued on ASA 81mg daily for prevention (3) Prostate cancer: * s/p TURP Mar 2019 and completed radiation therapy Apr [address] Pardo and to have surveillence with PSA's in 3 months from that time * Has not needed any medications to help with flow * IVF yesterday and improvement of UO since gonzalez removal (4) DVT prophylaxis: * SCDs, clinton diggs * chemoprophylaxis held in setting of back surgery Dispo: plans for d/c home possible per his conversation with Dr. Dunbar. Stable from medical standpoint today if drain removed vs having home health come to remove vs staying tomorrow per primary service. Thank you for allowing hospitalist service to participate in the care of Mr. Valente. Hospitalist service will sign off at this time. Please call with any questions/concerns. Admission and Anticipated Discharge Date Admission Date: June 15, 2020 Subjective Patient evaluated this morning. Doing great. Walking the halls. Pain controlled. Moving bowels and making good urine. Drain output decreased. Has not seen Dr Dunbar yet but discussed stable from medical standpoint and if drain output decreased and ok with Dr. Dunbar could potentially d/c today vs tomorrow at ortho discretion. Discussed resumed losartan last evening for elevated pressures and kidney function remains stable but with low BP this AM will continue to hold HCTZ for today and he can resume this medication in the morning. No fever, chills, chest pain, shortness of breath, abdominal pain or nausea at this time. Questions/concerns addressed. Review of Systems Review of Systems: All systems reviewed & are unremarkable except as noted in HPI & below Physical Exam Constitutional: WD/WN, vitals as above + obese, cooperative and comfortable (sitting upright in chair reading magazine); no acute distress Eyes: + anicteric sclerae and PERRL ENMT: Ears: no hearing impairment and no external ear abnormality Neck: normal visual inspection and trachea midline Respiratory: normal respiratory effort, lungs clear to auscultation Auscultation: + diminished lung sounds (bases) Cardiovascular: RRR, no murmur, no edema Extremities: no calf tenderness Gastrointestinal (Abdomen): normal bowel sounds, soft, nontender, no hepatosplenomegaly Musculoskeletal: no cyanosis or clubbing, extremities motor strength 5/5 (GABE drain 25cc bloody drainage. dressing to lumbar spine c/d/i. NVI) Skin: no rashes, warm and dry Neurologic: patellar DTR's 2+ bilat, sensation intact and PERRL, EOMI, accommodation nl, no face palsy, no dysarthria Psychiatric: A+Ox3, euthymic affect Genitourinary: NO GONZALEZ Results & Data Results & Data ([facility]) Vital Signs (Past 12 Hours) Vital Signs Temp Pulse Resp BP BP Pulse Ox 04/07/21 06:05 36.8 C 81 16 117/76 98 06/16/20 22:04 36.6 C 80 18 156/89 H 99 Laboratory Results 06/17/20 06/17/20 06/16/20 Range/Units 06:03 06:03 05:37 WBC 8.20 (4.8-10.8) K/uL RBC 3.47 L (4.7-6.1) M/uL Hgb 11.8 L (14.0-18.0) g/dL Hct 34.4 L (42-52) % MCV 99.1 (80-100) fL MCH 34.0 (25-34) pg MCHC 34.3 (32-36) g/dL RDW Std Deviation 47.6 H (36.4-46.3) fL RDW Coeff of Jhon 13.3 (11.5-14.5) % Plt Count 142 (130-400) K/uL MPV 10.3 (7.4-10.4) fL Immature Gran % (Auto) 0.1 % Neut % (Auto) 77.1 % Lymph % (Auto) 11.0 % [place] % (Auto) 10.7 % Eos % (Auto) 1.0 % Baso % (Auto) 0.1 % Neut # (Auto) 6.32 (1.4-6.5) K/uL Lymph # (Auto) 0.90 L (1.2-3.4) K/uL [place] # (Auto) 0.88 H (0.11-0.59) K/uL Eos # (Auto) 0.08 (0-0.5) K/uL Baso # (Auto) 0.01 (0-0.2) K/uL Immature Gran # (Auto) 0.01 (0.00-0.02) K/uL Sodium 136 (136-145) mmol/L Potassium 3.9 D (3.5-5.1) mmol/L Chloride 103 (98-107) mmol/L Carbon Dioxide 29 (21-32) mmol/L Anion Gap 4.0 (3-11) BUN 18 (7-18) mg/dl Creatinine 0.99 (0.6-1.4) mg/dl Est Cr Clr Drug Dosing 102.6 ml/min Est GFR ( Amer) 94.2 Est GFR (Non-Af Amer) 81.3 BUN/Creatinine Ratio 18.6 (10-20) Glucose 116 H (70-99) mg/dl Calcium 8.7 (8.5-10.1) mg/dl TSH 0.801 (0.300-4.500) uIu/ml Crossmatch 06/15/20 Range/Units 09:55 WBC (4.8-10.8) K/uL RBC (4.7-6.1) M/uL Hgb (14.0-18.0) g/dL Hct (42-52) % MCV (80-100) fL MCH (25-34) pg MCHC (32-36) g/dL RDW Std Deviation (36.4-46.3) fL RDW Coeff of Jhon (11.5-14.5) % Plt Count (130-400) K/uL MPV (7.4-10.4) fL Immature Gran % (Auto) % Neut % (Auto) % Lymph % (Auto) % [place] % (Auto) % Eos % (Auto) % Baso % (Auto) % Neut # (Auto) (1.4-6.5) K/uL Lymph # (Auto) (1.2-3.4) K/uL [place] # (Auto) (0.11-0.59) K/uL Eos # (Auto) (0-0.5) K/uL Baso # (Auto) (0-0.2) K/uL Immature Gran # (Auto) (0.00-0.02) K/uL Sodium (136-145) mmol/L Potassium (3.5-5.1) mmol/L Chloride (98-107) mmol/L Carbon Dioxide (21-32) mmol/L Anion Gap (3-11) BUN (7-18) mg/dl Creatinine (0.6-1.4) mg/dl Est Cr Clr Drug Dosing ml/min Est GFR ( Amer) Est GFR (Non-Af Amer) BUN/Creatinine Ratio (10-20) Glucose (70-99) mg/dl Calcium (8.5-10.1) mg/dl TSH (0.300-4.500) uIu/ml Crossmatch See Detail PG Care Time/CCT Total # of Minutes Spent Total Time Spent with Patient: Total time spent is greater than 50% in coordination of care (as documented) at patient's floor/unit and/or counseling patient: Coding Level of Care Code 29984 Subseq Hosp Care Lvl 2 Diagnoses Neurogenic claudication due to lumbar spinal stenosis M48.062 Hypertension I10 Prostate cancer C61 DVT prophylaxis Z29.9
[2020-06-17] MEDS: hydroCHLOROthiazide 25 MG TAB PO SCH (09:38)
--- NOTE | 2020-06-17 13:54 | Orthopedic Progress Note ---
Date of Service June 17, 2020 Assessment & Plan (1) Neurogenic claudication due to lumbar spinal stenosis: Admission and Anticipated Discharge Date Admission Date: June 15, 2020 This time we will continue physical therapy monitor his GABE output anticipate discharge home tomorrow. Subjective Back pain controlled leg pain markedly improved. Physical Exam Physical Exam: Patient is in the chair at the bedside has good strength testing. Appears comfortable. Results & Data ([facility]) Vital Signs (Past 12 Hours) Vital Signs Temp Pulse Pulse Resp BP Pulse Ox 06/17/20 09:39 69 102/66 06/17/20 06:05 36.8 C 81 16 117/76 98
[2020-06-17] MEDS: DOCUSATE SODIUM/SENNA 50/8.6MG TAB PO SCH (20:47)
[2020-06-18 08:04] VITALS: BP 146/79; PULSE 62; TEMP 98.1; O2SAT 100
[2020-06-18] MEDS: carvediloL 6.25 MG TAB PO SCH (08:20)
[2020-06-18] MEDS: LOSARTAN POTASSIUM 50 MG TAB PO SCH (08:21)
[2020-06-18] MEDS: dexAMETHasone 8 MG in SYRINGE 0 ML IV SCH (08:21)
[2020-06-18] MEDS: ASPIRIN 81 MG ECTAB PO SCH (08:21)
[2020-06-18] MEDS: hydroCHLOROthiazide 25 MG TAB PO SCH (08:21)
--- NOTE | 2020-06-18 11:07 | Discharge Summary ---
Date of Service June 18, 2020 Admission HPI Per Admitting Provider This is a 60-year-old male who presents with chronic persistent back and bilateral leg pain. Failing since course of nonoperative care is here for surgical invention. Principal Diagnosis Lumbar spinal stenosis with neurogenic claudication Discharge Data Allergies Allergy/AdvReac Type Severity Reaction Status Date / Time No Known Allergies Allergy Verified 06/15/20 10:03 Consultations 06/15/20 16:05 Consult Hospitalist Routine Procedures Performed Operation Date: 06/15/20 11:25 Actual Procedures p L3-S1 Decompression and Fusion, Spinal Cord Monitoring(Not Applicable) - Brad Dunbar DO Ordered Studies 06/15/20 11:25 FL fluoroscopy <1hr Routine FL lumbar spine 2-3V Routine Hospital Course (1) Neurogenic claudication due to lumbar spinal stenosis: Patient went lumbar decompression fusion tolerated so was taken to orthopedic for postoperative. Postop day 1 is up and ambulating Masoud postop day #2 on postop day #3 excellent strength testing GABE drain decreasing probably. Pain well controlled. Subsequent discharge home. Discharge orders and instructions found in chart for further review. Total Time Total Time Spent Total Time Spent (In Minutes): 20 minutes Discharge Plan Discharge Items Patient Disposition: Home - Self-Care Reason For Visit: Spinal Stenosis Lumbar Region with Neurogenic Discharge Diagnosis: Lumbar spinal stenosis with neurogenic claudication Activity: As commented below Lifting: None Bathing Comment: may shower 06/18/20 Exercise/Sports: None Non-emergency contact: Primary Care Provider Call non-emergency contact if: you have any medication questions Follow-up/Referrals: Edwin Guzman III, MD [Primary Care Provider] - Diet: Regular Addtl Attending Provider Instructions: ACTIVITY RECOMMENDATIONS: SELF CARE INSTRUCTIONS AFTER THORACIC/LUMBAR FUSIONS 1. You may walk to your tolerance. It is good exercise for your legs and back. Expect some back and intermittent leg aches and pains. 2. You may perform "counter-top" level activities (make a sandwich, casandra with a project, etc.). 3. No bending or lifting of more than 10 pounds or back twisting of any nature (roll like a log when turning in bed). 4. You may ride in a car for 20-30 minutes at a time. No driving until after your first visit with your doctor. 5. Frequent changes of position and restricting sitting to 30 minutes at a time will help limit the amount of back spasms and stiffness you may experience. 6. You may discontinue the use of ambulatory aids (cane, crutches, etc.) once your strength and confidence allow. 7. You may voice data communications engineer the shower and let water strike your incision when you arrive home at least once daily. Do not take a tub bath, sit in a hot tub or go into a swimming pool until after your first recheck in the office. SPECIAL CARE INSTRUCTIONS: VERY IMPORTANT TO READ AND REVIEW A. Your surgical incision has been closed with a cosmetic suture under the skin that will dissolve in about 6 weeks. In 14 days, you can use a pair of clean scissors and cut the suture that is left outside of the skin at the ends of your incision. 1. The small skin tapes can be removed 7 days after surgery if they have not fallen off by that point. 2. You may keep the wound open to air as much as possible to promote healing after post-op day number 5 unless told otherwise by your doctor. 3. If you think the wound looks like it is becoming infected (redness or worsening drainage) and/or you are experiencing fever, chill or worsening back pain and muscle spasms, contact the office so that we may evaluate you as soon as possible. B. Complications are uncommon, but please contact us if you have any signs or symptoms of: 1. wound infection (fever higher than 102.5 degrees F, redness, separation of wound, drainage, or increasing pain from the incision) 2. blood clots in legs (pain, swelling, redness and warmth in legs) 3. urinary tract infection (fever higher than 102.5 degrees F, burning upon urination or increased frequency of urination) 4. nerve problems (inability to walk on your toes or heels, numbness, loss of bowel or bladder control) 5. any other symptoms that concern you C. Please call the office at if you have any concerns or questions about your operation or recovery. D. No smoking! Smoking drastically decreases the chance of a solid fusion. E. Do not take any anti-inflammatory medications (Indocin, Advil, Motrin, Aspirin, Naprosyn, etc.) as these may inhibit the chance of a solid fusion. Tylenol is okay to take for pain. MANAGING PAIN AFTER SPINAL SURGERY 1. Narcotic medication is intended for short-term use and will be provided for surgical pain. Surgical pain usually lasts for a period of 4-6 weeks. Narcotic medication includes Percocet, Vicodin, Darvocet, Tylenol #3 or Lortab. 2. Longer-term pain is more appropriately treated with non-narcotic medication such as Tylenol ES. 3. Muscle spasm is not appropriately treated with narcotics. Muscle relaxers such as Soma, Flexeril or Skelaxin can be used along with Tylenol ES. 4. Remember that we all live with some "aches and pains". This is not unusual or uncommon after an injury or as we get older. a. Back pain is expected and may include muscle spasms for 4 to 6 weeks after surgery. The pain should gradually improve. If the pain worsens for no apparent reason, please contact the office. b. Intermittent leg pain may also be experienced and should not be concerned about unless it worsens for no apparent reason. If so, please contact the office. 5. We will provide appropriate medication within the normal guidelines of their prescribed use. We will also be very cautious and aware of potential abuse and extended duration of patients' medication needs. a. Pain medications are for your comfort and to assist with sleep and rest so that the tissue can heal. They are not provided in order to return to normal activity and should not be used through the day. To do so or worsening pain at night can result from ongoing tissue damage and development of tolerance to the prescribed medicine. 6. Please allow 2-3 days to process refills. Prescriptions will not be mailed but must be picked up at the office. FOLLOW UP VISIT: Keep your scheduled follow-up appointment. Any questions, please call the office at . Pending Studies at Discharge: No Stand-Alone Forms: My [employer], Smoking Cessation Medications and DC Order Prescriptions: New tramadol 50 mg tablet 50 mg PO Q6H PRN (Reason: pain, moderate) Qty: 30 RF: 0 oxycodone 5 mg tablet 5 mg PO Q6H PRN (Reason: pain, severe) Qty: 30 RF: 0 Continued hydrochlorothiazide 12.5 mg tablet 25 mg PO QAM RF: 0 aspirin 81 mg tablet,delayed release (DR/EC) 81 mg PO QAM RF: 0 carvedilol 6.25 mg tablet 6.25 mg PO BID RF: 0 losartan 50 mg tablet 50 mg PO BID RF: 0 Discharge Orders: Discharge Order (Routine); Ordered 06/18/20 Ordered By: Margarita Plascencia Admission Data Admit Date/Time: 06/15/20 14:45 Attending Provider: Brad Dunbar Admit Provider: Brad Dunbar Primary Care Provider: Edwin Guzman III Other Providers: Christofer John
== END 2020-06-18 13:25 | disposition home or self-care (01) | DRG 454 ==
LOC: ASU 09:33 → 3E 14:45

== ENCOUNTER 2022-09-19 09:55 | Inpatient (IN) ==
--- NOTE | 2022-08-25 09:12 | PAT Medication Instructions ---
Medication Instructions Date of Service August 25, 2022 Home Medications Medication Instructions Recorded gabapentin 300 mg capsule See Rx Instructions PO TID #120 08/15/22 caps aspirin 81 mg tablet,delayed release 81 mg PO QAM carvedilol 6.25 mg tablet 6.25 mg PO BID losartan 50 mg tablet 50 mg PO BID gabapentin 300 mg capsule See Rx Instructions PO TID hydrochlorothiazide 25 mg tablet 12.5 mg PO QAM ASK your prescriber and surgeon aspirin 81 mg tablet,delayed release 81 mg PO QAM DO NOT take the morning of surgery losartan 50 mg tablet 50 mg PO BID hydrochlorothiazide 25 mg tablet 12.5 mg PO QAM Take morning of surgery With a small sip of water, OTHERWISE NOTHING TO EAT OR DRINK AFTER MIDNIGHT: carvedilol 6.25 mg tablet 6.25 mg PO BID gabapentin 300 mg capsule See Rx Instructions PO TID Take evening before surgery carvedilol 6.25 mg tablet 6.25 mg PO BID losartan 50 mg tablet 50 mg PO BID gabapentin 300 mg capsule See Rx Instructions PO TID Other Notes If you have any questions please call us at [phone] or [phone] or [phone] or [phone]
--- NOTE | 2022-09-05 09:05 | Anesthesiology Consultation ---
Date of Service September 05, 2022 Assessment & Plan (1) Encounter for pre-operative examination: - COVID screening: Per assessment on 09/05: No known COVID-19 positive contacts or current COVID-19 related symptoms. Travel screen negative. At surgeon discretion if preop Covid testing being done. - S/P L3-S1 decompression/fusion (06/15/20): Grade 2 view, Glidescope#4, ETT 8.0 at [facility] - Patient acceptable risk for surgery pending surgeon-ordered PCP preop evaluation ([facility], appt 09/06) and cardiology preop evaluation ([facility], appt 09/07). Chart Review Chart Review: Patient seen in Pre Admission Testing Teaching & Discussion Pre-Anesthesia Teaching/Discussion Notes: Instructed NPO after midnight before surgery,except medications with 15 cc of water. Medication instructions provided according to the PAT guidelines. History Surgery Operation Date: 09/19/22 07:45 Proposed Procedures p L2-L3 Decompression and Fusion (Connecting to Existing Hardware), Possible L3- S1 Hardware Removal, Possible L3-S1 Re-Instrumentation Spinal Cord Monitoring - Brad Dunbar DO Height/Weight Height: 5 ft 11 in Weight: 124.2 kg Allergies Allergy/AdvReac Type Severity Reaction Status Date / Time No Known Allergies Allergy Verified 08/24/22 14:46 Medications Home Medications Medication Instructions Recorded Confirmed Last Taken aspirin 81 mg tablet,delayed 81 mg PO QAM 09/28/18 08/24/22 06/15/20 06:00 release carvedilol 6.25 mg tablet 6.25 mg PO BID 09/28/18 08/24/22 06/15/20 06:00 losartan 50 mg tablet 50 mg PO BID 09/28/18 08/24/22 06/14/20 19:00 gabapentin 300 mg capsule See Rx Instructions PO TID #120 08/15/22 08/24/22 Unknown caps hydrochlorothiazide 25 mg tablet 12.5 mg PO QAM 08/24/22 08/24/22 Unknown Past Medical History Medical History Aortic root dilatation 4.1cm per 06/2021 Echo Chronic back pain Chronic hyponatremia Baseline sodium low 130s per chart review Dyslipidemia Borderline History of prostate cancer Dx 2019, s/p radiation therapy (completed 04/2020), no current issues Hypertension Lumbar radiculopathy Lumbar spinal stenosis 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 fusion procedure Neuropathy Feet Obesity Exercise / Class Metabolic Activity II 4-5 Yardwork/Stairs/Walk up hill (one FS (no CP, no SOB)) Past Family History Family History Mother , age 81 heart disease FHx: abdominal aortic aneurysm Hypertension Father , lived with prostate cancer 35 years, age 99 old age Prostate cancer Brother Prostate cancer Sister Family hx colonic polyps PRE CANCEROUS POLYP Brother Prostate cancer age 65-had prostate removed, still alive and well Sister No problems noted. Sister Family hx colonic polyps Son No problems noted. Son No problems noted. Daughter No problems noted. 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 History of colonoscopy History of discectomy Lumbar discectomy/laminectomy (2009, 2014) History of herniorrhaphy Right inguinal hernia (1989) History of kyphoplasty T5 kyphoplasty with biopsy (09/16/14): Grade view 1, Glidescope#4, ETT 7.5 at [facility] History of lumbar fusion L3-S1 decompression/fusion (06/15/20): Grade 2 view, Glidescope#4, ETT 8.0 at [facility] History of prostate biopsy History of tonsillectomy As child Past Anesthesia History No Hx of Anesthesia Complications and No Family Hx of Anesthesia Complications History of PONV No Hx of PONV and No Hx of Motion Sickness Social History Smoking Status: Never smoker Do You Dip or Chew Tobacco: No (Hx) Hx Alcohol Use: Yes Alcohol type: beer alcohol intake frequency: a few times a week Hx Substance Use: No substance use type: does not use Review of Systems Patient denies chest pain, shortness of breath, dyspnea on exertion, fever, chills, cough, wheezing, palpitations. Physical Exam Vital Signs VITALS BP 137/87 P 68 TEMP 98.3 SP02 96%RA RESP 18 PHYSICAL Full cervical extension range of motion. Full TMJ range of motion. TMD 3 finger breaths (difficult to palpate) Mallampati Score 3 Dentition: Several missing including right upper side, caps/crowns Lungs: clear throughout to auscultation Cardiac: regular rate and rhythm, no murmurs noted Spine: normal Carotid arteries: negative bruit Extremities: no LE edema Trimmed roth Very thick neck Lab Results Anesthesia Preop Results Results Anesthesia Widget: WBC 8.57 K/ul (4.8-10.8) 09/05/22 Hgb 15.4 g/dl (14.0-18.0) 09/05/22 Hct 42.7 % (42.0-52.0) 09/05/22 Plt 237 K/uL (130-400) 09/05/22 Na 132 mmol/L (136-145) L 09/05/22 K 4.5 mmol/L (3.5-5.1) 09/05/22 Cl 95 mmol/L (98-107) L 09/05/22 CO2 32 mmol/L (21-32) 09/05/22 BUN 14 mg/dl (6-23) 09/05/22 Creat 0.94 mg/dl (0.6-1.4) 09/05/22 Glucose Level 103 mg/dl (70-99(Fasting)) H 09/05/22 PT 10.8 Seconds (9.0-12.0) 09/05/22 PTT 27.8 Seconds (21.0-31.0) 09/05/22 INR 1.0 (0.9-1.1) 09/05/22 Urine Color Yellow 09/05/22 Urine Appearance Clear (Clear) 09/05/22 Urine pH 7.0 (4.5-7.5) 09/05/22 Urine Specific [place] 1.012 (1.000-1.030) 09/05/22 Urine Protein Negative (Negative) 09/05/22 Urine Glucose (UA) Negative (Negative) 09/05/22 Urine Ketones Negative (Negative) 09/05/22 Urine Blood Trace (Negative) H 09/05/22 Urine Nitrite Negative (Negative) 09/05/22 Urine Bilirubin Negative (Negative) 09/05/22 Urine Urobilinogen Negative (Negative) 09/05/22 Urine Leukocyte Esterase Negative (Negative) 09/05/22 Urine WBC (Auto) 0 /hpf (0-5) 09/05/22 Urine RBC (Auto) 0-4 /hpf (0-4) 09/05/22 Urine Hyaline Casts (Auto) 1-5 /lpf (0-5) 09/05/22 Urine Epithelial Cells (Auto) 5-10 /lpf (0-5) H 09/05/22 Urine Bacteria (Auto) Negative (Negative) 09/05/22 Blood Type O Negative 09/05/22 Antibody Screen NEGATIVE 09/05/22 Testing Electrocardiogram Date: 01/12/22 Findings: + NSR @ (63) Chest X-Ray Date: 09/05/22 FINDINGS: Lung volumes are normal. Lungs are clear. There is no pneumothorax or pleural effusion. Cardiac size is stable. Mediastinal contours are normal. There is no evidence for pulmonary edema. Suspected thoracic spine kyphoplasty is noted. IMPRESSION: No acute cardiopulmonary findings. Echocardiogram Date: 06/28/21 LVEF 60-64%. Mildly increased cLV wall thickness. Wall motion is normal. No significant valvular disease. A trivial right lateral loculated pericardial effusion of non hemodynamic significance is present. COVID-19 Risk Screen Screening Information COVID-19 Screen Date: 09/05/22 Exposure 21 Days Family/Household +COVID Last 21 Days: No Exposure 10 Days Any COVID Exposure Last 10 Days: No Symptoms Last 10 Days Experienced COVID Sx Last 10 Days: No + COVID 0-90 Days COVID + in Last 0-90 Days: No
[~2022-09-19 09:55] MED LIST changes: -ACETAMINOPHEN 500 MG TAB PO SCH; -CeleBREX 200 MG CAP PO SCH; +DEXAMETHASONE SOD INJ 4 MG/ML VIAL ONE; -GABAPENTIN 600 MG DOSE PO SCH; +LIDOCAINE 2% 2 ML VIAL/AMP(20MG/ML) INFIL ONE; +MIDAZOLAM HCL 1 MG/ML 2ML VIAL ONE; +ONDANSETRON INJ 2 MG/ML 2 ML VIAL ONE; +PROPOFOL IV EMULSION 10 MG/ML 20 ML VIAL IV ONE; +ROCURONIUM BROMIDE 10 MG/ML 5 ML VIAL IV ONE; +SUGAMMADEX SODIUM 200 MG/2 ML VIAL IV ONE; +fentaNYL citrate PF 100 MCG/2 ML VIAL ONE
[2022-09-19] MEDS: CeleBREX 200 MG CAP PO SCH (11:01)
[2022-09-19] MEDS: ACETAMINOPHEN 500 MG TAB PO SCH (11:03)
[2022-09-19] MEDS: GABAPENTIN 600 MG DOSE PO SCH (11:03)
--- NOTE | 2022-09-19 11:14 | History & Physical Bridge Note ---
Date of Service September 19, 2022 History & Physical Bridge Note I have examined the patient, reviewed the History & Physical and in the interval since the performance of the History & Physical I have noted the following changes of clinical significance: no changes noted
--- NOTE | 2022-09-19 11:16 | History & Physical Report ---
Date of Service September 19, 2022 Assessment & Plan (1) Neurogenic claudication due to lumbar spinal stenosis: Plan: L2-L3 decompression and fusion connecting to existing hardware cough, possible L3-S1 hardware removal possible L3-S1 reinstrumentation History of Present Illness Chief Complaint: Back and bilateral leg pain Primary Care Provider: Arnie Kim, This is a 62-year-old male well-known to me the presents with chronic persistent back and bilateral leg pain after failing since course of nonoperative care is here for surgical intervention. Allergies Allergy/AdvReac Type Severity Reaction Status Date / Time No Known Allergies Allergy Verified 09/19/22 10:41 Home Medications Medication Instructions Recorded Confirmed Type aspirin 81 mg tablet,delayed 81 mg PO QAM 09/28/18 09/19/22 History release carvedilol 6.25 mg tablet 6.25 mg PO BID 09/28/18 09/19/22 History losartan 50 mg tablet 50 mg PO BID 09/28/18 09/19/22 History gabapentin 300 mg capsule See Rx Instructions PO TID #120 08/15/22 09/19/22 Rx caps hydrochlorothiazide 25 mg tablet 12.5 mg PO QAM 08/24/22 09/19/22 History Past Med/Surg History Medical History Aortic root dilatation 4.1cm per 06/2021 Echo Chronic back pain Chronic hyponatremia Baseline sodium low 130s per chart review Dyslipidemia Borderline History of prostate cancer Dx 2019, s/p radiation therapy (completed 04/2020), no current issues Hypertension Lumbar radiculopathy Lumbar spinal stenosis 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 fusion procedure Neuropathy Feet Obesity Surgical History H/O elbow surgery Right elbow tendon repair (2006) H/O excision of mass Excision of Gluteal Cyst (10/2018) H/O retained foreign body fully removed 1994 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, 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 History of colonoscopy History of discectomy Lumbar discectomy/laminectomy (2009, 2014) History of herniorrhaphy Right inguinal hernia (1989) History of kyphoplasty T5 kyphoplasty with biopsy (09/16/14): Grade view 1, Glidescope#4, ETT 7.5 at [facility] History of lumbar fusion L3-S1 decompression/fusion (06/15/20): Grade 2 view, Glidescope#4, ETT 8.0 at [facility] History of prostate biopsy History of tonsillectomy As child Family History Mother FHx: abdominal aortic aneurysm Hypertension Father Prostate cancer Brother Prostate cancer Sister Family hx colonic polyps Brother Prostate cancer Sister No problems noted. Sister Family hx colonic polyps Son No problems noted. Son No problems noted. Daughter No problems noted. Other No family history of adverse response to anesthesia Denies family history of Ovarian cancer Myocardial infarction Breast cancer Colorectal cancer Social History Smoking Status: Never smoker Second Hand Exposure: No; Do You Dip or Chew Tobacco: No (Hx); Tobacco Cessation Education Requested by Patient: No Hx Alcohol Use: Yes Alcohol type: beer Alcohol Intake Frequency: 2-3 x/Week Hx Substance Use: No Preferred Language: Bulgarian Communication Ability: Effective Visual Impairment: No Limitations Hearing Ability: Normal Apricot Packer Required: No Beliefs That Will Affect Care: None marital status: Current Living Situation: Spouse and Family current occupational status: retired 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
[2022-09-19] MEDS ORDERED: ceFAZolin 330 MG/ML 1 GM VIAL ONE (11:22)
[2022-09-19] MEDS ORDERED: BUPIVACAINE/EPINEPHRINE 0.25% 1:200,000 30 ML VIAL ONE (11:23)
[2022-09-19] MEDS ORDERED: ATROPINE SULFATE 0.1 MG/ML 10ML SYR IV PRN (11:25)
[2022-09-19] MEDS ORDERED: ePHEDrine sulfate 50 MG/ML AMP IV PRN (11:25)
[2022-09-19] MEDS ORDERED: ONDANSETRON INJ 2 MG/ML 2 ML VIAL IV PRN ×2 (11:25→15:59)
[2022-09-19] MEDS ORDERED: KETAMINE 50 MG/5 ML SYRINGE ONE (12:21)
[2022-09-19] MEDS ORDERED: fentaNYL citrate PF 100 MCG/2 ML VIAL ONE (12:21)
[2022-09-19] MEDS ORDERED: FLOSEAL HEMOSTATIC MATRIX 10ML TOP ONE (12:31)
--- NOTE | 2022-09-19 13:48 | Operative Report ---
Post Operative Report Pre & Post Diagnosis Operation Date: 09/19/22 11:25 Pre-Op Diagnosis: Lumbar spinal stenosis with neurogenic claudication Obesity Post-Op Diagnosis: Same I identified the patient and participated in the time-out.: Yes Procedure Operation Date: 09/19/22 11:25 Actual Procedures 1. Lumbar decompression bilateral medial facetectomies and foraminotomies L1- L2, L2-L3. #2 posterior spinal fusion L2-3. #3 placement posterior instrumentation L2-L3 with a connector at L3-L4. #4 interbody fusion L2-L3 #5 placement Spira 14 x 26 mm cage at L2-L3. #6 placement locally harvested morselized autograft in the posterior gutters. #7 placement of I factor in the interbody space and infuse collagen sponge, master graft in the posterior l ateral gutters. Surgeon Brad Dunbar, DO Geospatial Technician Margarita Hilton Estimated Blood Loss 400 Findings See Below The patient is 5 foot 11 weighing 122 kg with a BMI in excess of 37. The patient's body habitus did contribute to significant technical difficulty required deepest retractors longer instruments in order to perform his procedure. This had at least 50% increased operative time. Specimens none Indications This is a 62-year-old male who presents above-mentioned diagnosis after failing course of nonoperative care is here for surgical invention. Description of Procedure Patient was met with identified informed consent obtained. Patient was then taken to the operative suite underwent a patient placed in a prone position on the [place] table top Lalo frame. All bony promises well-padded eyes inspected to ensure no external pressure placed monitor at this point lumbar spine was prepped draped normal sterile fashion. Sharp dissection with assistance of Bovie cautery form down to and exposing the lamina transverse processes of L2 and instrumentation at L3-L4. Informed complete laminectomy of L to partial laminectomy of L1 including bilateral medial facetectomies and foraminotomies addressing severe spinal stenosis. Pedicle screws were then placed in L2 bilaterally with assistance of fluoroscopy and then by way the transforaminal approach on the right complete discectomy of L2-L3 was performed endplates curetted to subcortical being bone and a 14 x 26 mm Spira cage with I factor tapped in position. Connectors were then placed on the gabrielle at L3-L4 and then a new gabrielle placed extending from L2 to the connector and locked into place. Transverse processes of L2 and L3 were then burred to subcortical bleeding bone. Infuse collagen sponge mass graft locally harvested morselized autograft was placed in the posterior gutters. 15 round GABE drain inserted. The incision was then closed with 1 Vicryl the fascia 2-0 Vicryl subcutaneously and 4 Monocryl for final skin closure. Steri-Strips sterile dressing placed. Patient waken taken to PACU in stable condition. Please note spinal cord monitoring was utilized throughout the procedure no changes noted. Lastly Margarita Hilton was present at the entire surgery and while the patient positioning complex portions of the surgery and final skin closure. I attest to the content of the Intraoperative Record and any orders documented therein. Any exceptions are noted below.
[2022-09-19] MEDS: fentaNYL citrate PF 100 MCG/2 ML VIAL IV PRN ×2 (14:20→14:27)
--- NOTE | 2022-09-19 14:29 | Anesthesiology Progress Note ---
Date of Service September 19, 2022 Anesthesia Post Procedure Vital Signs Vital Signs: Temp Pulse Resp BP Pulse Ox O2 Del Method O2 Flow Rate 09/19/22 14:15 80 16 130/67 99 Oxymask 4 09/19/22 14:05 86 16 132/69 99 Oxymask 6 09/19/22 14:00 96.8 F L 94 H 13 137/91 98 Oxymask 10 09/19/22 10:44 98.8 F 70 18 143/83 H 95 Room Air Pain Intensity Bilateral Leg: Pain Intensity: 0 Back: Pain Intensity: 6 Transfer of Care Handoff Completed per policy Notes Mental Status: alert / awake / arousable and participated in evaluation Patient Amnestic to Procedure: Yes Nausea / Vomiting: adequately controlled Pain: adequately controlled Airway Patency, RR, SpO2: stable & adequate BP & HR: stable & adequate Hydration State: stable & adequate Anesthetic Complications: no major complications apparent and Pt Satisfied with anesthetic care
--- NOTE | 2022-09-19 14:36 | Fluoroscopy Report ---
INTRAOPERATIVE RADIOGRAPHS CLINICAL HISTORY: Lumbar spinal fusion surgery. Fluoro time: 16 seconds Ka,r: 13.43 mGy FINDINGS: 2 spot fluoroscopic views of the lumbar spine are presented. There is evidence of discectom y at L2-L3 and L4-L5 with laminectomy and posterior fusion seen at L2-S1. S1 is not visualized. Inter pedicular screws are present at all levels. Imaged portions of the orthopedic hardware appear intact. Minimal retrolisthesis is noted at L2-L3 and minimal anterolisthesis is seen at L3-L4. IMPRESSION: Intraoperative images from lumbar spinal fusion surgery as above. Electronically signed by: Vishnu Mata M.D. 09/19/2022 2:35 PM
[2022-09-19] MEDS ORDERED: diphenhydrAMINE Capsule 25 MG CAP PO PRN (15:59)
[2022-09-19] MEDS ORDERED: HYDROmorphone INJ 0.5 MG/0.5 ML SYR IV PRN (15:59)
[2022-09-19] MEDS ORDERED: traMADol HCL 50 MG TABLET PO PRN (15:59)
[2022-09-19] MEDS ORDERED: ALUMINUM/MAGNESIUM SUSP 30 ML UDC PO PRN (15:59)
[2022-09-19] MEDS ORDERED: DO NOT ADMINISTER FLU VACCINE PRN (15:59)
[2022-09-19] MEDS ORDERED: DO NOT ADMINISTER PNEUMOCOCCAL VACCINE PRN (15:59)
[2022-09-19] MEDS ORDERED: oxyCODONE HCL IR 5 MG TAB (IMMEDIATE RELEASE) PO PRN (15:59)
[2022-09-19] MEDS ORDERED: PROMETHAZINE HCL 12.5 MG in SODIUM CHLORIDE 0.9% 50 ML IV PRN (15:59)
[2022-09-19] MEDS ORDERED: METOCLOPRAMIDE HCL INJ 5 MG/ML 2 ML VIAL IV PRN (15:59)
[2022-09-19] MEDS ORDERED: ACETAMINOPHEN 1,000 MG/100 ML VIAL IV PRN (15:59)
[2022-09-19] MEDS ORDERED: LORazepam 2 MG/1 ML VIAL IV PRN (15:59)
[2022-09-19] MEDS ORDERED: LORazepam 0.5 MG TAB PO PRN (15:59)
[2022-09-19] MEDS ORDERED: ACETAMINOPHEN 500 MG TAB PO PRN (15:59)
[2022-09-19] MEDS ORDERED: NALOXONE HCL 0.4 MG/1 ML VIAL/CARP IV PRN (15:59)
[2022-09-19] MEDS ORDERED: bisacodyL 10 MG SUPP PR PRN (15:59)
[2022-09-19] MEDS ORDERED: hydrOXYzine HCl 25 MG TAB PO PRN (15:59)
[2022-09-19] MEDS ORDERED: SOD PHOSPHATE/SOD BIPHOSPHATE ENEMA 132 ML BTL PR PRN (15:59)
[2022-09-19] MEDS ORDERED: FAMOTIDINE 20 MG TAB PO PRN (15:59)
[2022-09-19] MEDS ORDERED: ONDANSETRON 4 MG OD TAB PO PRN (15:59)
[2022-09-19] MEDS ORDERED: MAGNESIUM HYDROXIDE SUSP 30 ML UDC PO PRN (15:59)
[2022-09-19] MEDS ORDERED: HYDROmorphone INJ 1 MG/ML SYRINGE IV PRN (15:59)
[2022-09-19] MEDS: LACTATED RINGER'S 1,000 ML IV SCH ×2 (16:46→23:53)
[2022-09-19] MEDS: GABAPENTIN 300 MG CAP PO SCH ×2 (17:07→20:29)
[2022-09-19] MEDS: DOCUSATE SODIUM/SENNA 50/8.6MG TAB PO SCH (20:29)
[2022-09-19] MEDS: ceFAZolin 2000MG 2,000 MG/15 ML SYR IV SCH (20:29)
[2022-09-19] MEDS: LOSARTAN POTASSIUM 50 MG TAB PO SCH (20:29)
[2022-09-19] MEDS: carvediloL 6.25 MG TAB PO SCH (20:29)
[2022-09-20] MEDS: LACTATED RINGER'S 1,000 ML IV SCH ×2 (04:37→13:06)
[2022-09-20] MEDS: CeleBREX 200 MG CAP PO SCH (05:06)
[2022-09-20] MEDS: GABAPENTIN 600 MG DOSE PO SCH (05:06)
[2022-09-20] MEDS: POLYETHYLENE (MIRALAX) 17 GM PACK PO SCH ×3 (05:12→17:44)
[2022-09-20] MEDS: ceFAZolin 2000MG 2,000 MG/15 ML SYR IV SCH (05:12)
[2022-09-20] MEDS: ACETAMINOPHEN 500 MG TAB PO SCH (05:12)
[2022-09-20 06:21] LABS: Hematocrit (blood only) 36.6 % (42.0-52.0); Hemoglobin 13.2 g/dl (14.0-18.0); Mean Corpuscular Hemoglobin 35.7 pg (25.0-34.0); Mean Corpuscular Hgb Conc 36.1 g/dL (32.0-36.0); Mean Corpuscular Volume 98.9 fL (80.0-100.0); Mean Platelet Volume 10.3 fL (9.4-12.4); Platelet Count 177 K/uL (130-400); RDW Standard Deviation 43.8 fL (36.4-46.3)
[2022-09-20 06:46] LABS: Basophils # (auto) 0.01 K/uL (0-0.2); Basophils % (auto) 0.1 %; Eosinophils # (auto) 0.02 K/uL (0-0.50); Eosinophils % (auto) 0.1 %; Immature Granulocytes # (auto) 0.12 K/uL (0.01-0.20); Immature Granulocytes % (auto) 0.7 %; Lymphocytes # (auto) 0.54 K/uL (1.2-3.4); Lymphocytes % (auto) 3.3 %; Monocytes # (auto) 0.72 K/uL (0.11-0.59); Monocytes % (auto) 4.4 %; Neutrophils # (auto) 14.99 K/uL (1.40-6.50); Neutrophils % (auto) 91.4 %
[2022-09-20 06:47] LABS: BUN Creatinine Ratio 15.7 (10-20); Calcium 9.4 mg/dl (8.6-10.3); Creatinine Clr Calc Pharmacy 97.5 ml/min; Est GFR (African American) 89.6 ml/min; Est GFR (Non-African American) 77.3 ml/min; Potassium 4.2 mmol/L (3.5-5.1)
[2022-09-20] MEDS: dexAMETHasone 6 MG in SYRINGE 0 ML IV SCH (08:13)
[2022-09-20] MEDS: carvediloL 6.25 MG TAB PO SCH ×2 (08:13→20:09)
[2022-09-20] MEDS: ASPIRIN 81 MG ECTAB PO SCH (08:13)
[2022-09-20] MEDS: GABAPENTIN 300 MG CAP PO SCH ×3 (08:14→20:10)
[2022-09-20] MEDS: hydroCHLOROthiazide 25 MG TAB PO SCH ×2 (08:14→08:16)
[2022-09-20] MEDS: LOSARTAN POTASSIUM 50 MG TAB PO SCH ×2 (08:15→20:09)
--- NOTE | 2022-09-20 08:42 | Orthopedic Progress Note ---
Date of Service September 20, 2022 Assessment & Plan (1) Lumbar stenosis: Plan: At this time we will continue physical therapy monitor his GABE operatively discharge home in the next few days. Admission and Anticipated Discharge Date Admission Date: September 19, 2022 Subjective Back pain controlled leg pain markedly improved Physical Exam Physical Exam: Patient in the chair at the bedside. Is constricted testing. Appears comfortable. Results & Data Vital Signs (Past 12 Hours) Vital Signs Temp Pulse Resp BP Pulse Ox O2 Del Method 09/20/22 07:26 36.7 C 72 20 119/73 98 Room Air 09/20/22 03:00 36.3 C L 68 18 143/78 H 97 Room Air 09/19/22 23:00 36.5 C 73 18 125/77 96 Room Air Queries Orthopedic Spine Obesity: Yes
--- NOTE | 2022-09-20 12:57 | Hospitalist Consultation ---
Date of Consultation September 20, 2022 Assessment & Plan (1) Lumbar stenosis: Postoperative day #1 after repeat surgery involving L1-L3 fusion with instrumentation and autograft. Management per primary service. (2) Hypertension: Stable. Continue Coreg, hydrochlorothiazide, losartan (3) Hyponatremia: Chronic. Mild. Asymptomatic. We will follow (4) Prostate cancer: Diagnosed in 2019. History of radiation therapy Plan Anticipate eventual discharge to home or rehab per primary service later this week History of Present Illness Reason for Consultation: Medical management Requesting Physician: Brad Dunbar DO Attending Physician: Brad Dunbar DO History of Present Illness 62-year-old white male with a history of essential hypertension, chronic mild hyponatremia and past history of prostate cancer. He was admitted due to an neurogenic claudication from recurrent lumbar stenosis. He underwent repeat lumbar surgery yesterday with fusion between L1 and L3 with instrumentation and autografts. This is currently being managed by Dr. Alfred Dunbar. No acute problems at this time. Allergies Allergy/AdvReac Type Severity Reaction Status Date / Time No Known Allergies Allergy Verified 09/19/22 10:41 Home Medications Medication Instructions Recorded Confirmed Type aspirin 81 mg tablet,delayed 81 mg PO QAM 09/28/18 09/19/22 History release carvedilol 6.25 mg tablet 6.25 mg PO BID 09/28/18 09/19/22 History losartan 50 mg tablet 50 mg PO BID 09/28/18 09/19/22 History gabapentin 300 mg capsule See Rx Instructions PO TID #120 08/15/22 09/19/22 Rx caps hydrochlorothiazide 25 mg tablet 12.5 mg PO QAM 08/24/22 09/19/22 History oxycodone 5 mg tablet 5 mg PO Q6H PRN pain #30 tabs 09/20/22 Rx tramadol 50 mg tablet 50 mg PO Q6H PRN pain, moderate 09/20/22 Rx #30 tabs Patient History Medical History Aortic root dilatation 4.1cm per 06/2021 Echo Chronic back pain Chronic hyponatremia Baseline sodium low 130s per chart review Dyslipidemia Borderline History of prostate cancer Dx 2019, s/p radiation therapy (completed 04/2020), no current issues Hypertension Lumbar radiculopathy Lumbar spinal stenosis 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 fusion procedure Neuropathy Feet Obesity Surgical History H/O elbow surgery Right elbow tendon repair (2006) H/O excision of mass Excision of Gluteal Cyst (10/2018) H/O retained foreign body fully removed 1994 Eyes, 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 History of colonoscopy History of discectomy Lumbar discectomy/laminectomy (2009, 2014) History of herniorrhaphy Right inguinal hernia (1989) History of kyphoplasty T5 kyphoplasty with biopsy (09/16/14): Grade view 1, Glidescope#4, ETT 7.5 at [facility] History of lumbar fusion L3-S1 decompression/fusion (06/15/20): Grade 2 view, Glidescope#4, ETT 8.0 at [facility] History of prostate biopsy History of tonsillectomy As child Family History Mother FHx: abdominal aortic aneurysm Hypertension Father Prostate cancer Brother Prostate cancer Sister Family hx colonic polyps Brother Prostate cancer Sister No problems noted. Sister Family hx colonic polyps Son No problems noted. Son No problems noted. Daughter No problems noted. Other No family history of adverse response to anesthesia Denies family history of Ovarian cancer Myocardial infarction Breast cancer Colorectal cancer Social History Smoking Status: Never smoker Second Hand Exposure: No; Do You Dip or Chew Tobacco: No (Hx); Tobacco Cessation Education Requested by Patient: No Hx Alcohol Use: Yes Alcohol type: beer Alcohol Intake Frequency: 2-3 x/Week Hx Substance Use: No Preferred Language: Portuguese Communication Ability: Effective Visual Impairment: No Limitations Hearing Ability: Normal Drawer In Stitch Bonding Machine Required: No Beliefs That Will Affect Care: None marital status: Current Living Situation: Spouse and Family current occupational status: retired 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 [employer] Other Information That Helps Us Care for You: No Feels Safe at Home: Yes Safety Concerns: Feels Safe At This Time Diet: regular caffeine: Yes during the past year weight has: remained stable Dental Care, Regularly: No Physical Activity Frequency: 1-2 Times per Week Seatbelt Use: sometimes Sunscreen Use: No Assistive Devices: Walker Review of Systems Review of Systems: Constitutional-no fever or chills ENT-no blurred vision, no double vision, no epistaxis, no sore throat Respiratory-no cough, no wheezing, no shortness of breath Cardiac-no palpitations, no chest pain, no syncope GI-no nausea, vomiting, diarrhea, melena, hematochezia -no urinary retention, no urinary incontinence, no dysuria, no hematuria Musculoskeletal-mild lumbar discomfort as expected after surgery Skin-no bruising, no rashes, no pruritus Neuro-no isolated weakness, no paresthesia Psych-no depression, no anxiety Physical Exam Physical Exam: General-alert and oriented x3, no fevers, no chills HEENT-head atraumatic and normocephalic, pupils equal and reactive to light, extraocular muscles intact Neck-no lymphadenopathy or thyromegaly, trachea midline Chest-clear to auscultation percussion. No rales wheezing or rhonchi Cardiac-regular rate and rhythm, normal S1 and S2 Abdomen-normal bowel sounds, nontender, no hepatosplenomegaly Extremities-no cyanosis, clubbing, or edema Neuro-cranial nerves II through XII intact, motor and sensory function within normal limits, strength symmetrical , no focal deficits Psych-normal affect, normal mood Results & Data Results & Data Vital Signs (Past 12 Hours) Vital Signs Temp Pulse Resp BP Pulse Ox O2 Del Method 09/20/22 07:26 36.7 C 72 20 119/73 98 Room Air 09/20/22 03:00 36.3 C L 68 18 143/78 H 97 Room Air Laboratory Results 09/20/22 05:54 09/20/22 05:54 PG Care Time/CCT Total # of Minutes Spent Total Time Spent with Patient: Total time spent is greater than 50% in coordination of care (as documented) at patient's floor/unit and/or counseling patient: Coding Level of Care Code 95926 IN/OBS CONSULT LVL 4,60M Diagnoses Lumbar stenosis M48.061 Hypertension I10 Hyponatremia E87.1 Prostate cancer C61
[2022-09-20] MEDS: DOCUSATE SODIUM/SENNA 50/8.6MG TAB PO SCH (20:10)
[2022-09-21] MEDS: ACETAMINOPHEN 500 MG TAB PO SCH (05:09)
[2022-09-21] MEDS: GABAPENTIN 600 MG DOSE PO SCH (05:10)
[2022-09-21] MEDS: CeleBREX 200 MG CAP PO SCH (05:10)
[2022-09-21 07:35] VITALS: BP 119/74; PULSE 62; TEMP 97.5; O2SAT 99
[2022-09-21] MEDS: ASPIRIN 81 MG ECTAB PO SCH (08:47)
[2022-09-21] MEDS: dexAMETHasone 6 MG in SYRINGE 0 ML IV SCH (08:48)
[2022-09-21] MEDS: hydroCHLOROthiazide 25 MG TAB PO SCH ×2 (08:48→08:50)
[2022-09-21] MEDS: GABAPENTIN 300 MG CAP PO SCH ×2 (08:48→13:02)
[2022-09-21] MEDS: LOSARTAN POTASSIUM 50 MG TAB PO SCH (08:49)
[2022-09-21] MEDS: carvediloL 6.25 MG TAB PO SCH (08:49)
--- NOTE | 2022-09-21 10:45 | Discharge Summary ---
Date of Service September 21, 2022 Admission HPI Per Admitting Provider This is a 62-year-old male well-known to me the presents with chronic persistent back and bilateral leg pain after failing since course of nonoperative care is here for surgical intervention. Principal Diagnosis Lumbar spinal stenosis with neurogenic claudication Discharge Data Allergies Allergy/AdvReac Type Severity Reaction Status Date / Time No Known Allergies Allergy Verified 09/19/22 10:41 Consultations 09/19/22 15:59 Consult Hospitalist Routine Procedures Performed Operation Date: 09/19/22 11:25 Actual Procedures p L2-L3 Decompression and Fusion Connecting to Existing Hardware at L3-S1. Spinal Cord Monitoring(Not Applicable) - Brad Dunbar DO Ordered Studies 09/19/22 11:25 FL lumbar spine 2-3V Routine Hospital Course (1) Neurogenic claudication due to lumbar spinal stenosis: Patient with limited question fusion tolerated this well was taken to orthopedic floor postoperative. Postop day #1 is up and ambulating progressed to postop day #2. GABE drain decreasing probably. Excellent strength testing. Pain well controlled. Subsidy discharged home. Discharge orders and instructions found in chart for further review. Total Time Total Time Spent Total Time Spent (In Minutes): 20 minutes Discharge Plan Discharge Items Patient Disposition: Home - Self-Care Reason For Visit: POSTOP Discharge Diagnosis: Lumbar spinal stenosis with neurogenic claudication Activity: As commented below Non-emergency contact: Primary Care Provider Call non-emergency contact if: you have any medication questions Follow-up/Referrals: Arnie Kim DO [Primary Care Provider] - Diet: Regular Addtl Attending Provider Instructions: ACTIVITY RECOMMENDATIONS: SELF CARE INSTRUCTIONS AFTER THORACIC/LUMBAR FUSIONS 1. You may walk to your tolerance. It is good exercise for your legs and back. Expect some back and intermittent leg aches and pains. 2. You may perform "counter-top" level activities (make a sandwich, casandra with a project, etc.). 3. No bending or lifting of more than 10 pounds or back twisting of any nature (roll like a log when turning in bed). 4. You may ride in a car for 20-30 minutes at a time. No driving until after your first visit with your doctor. 5. Frequent changes of position and restricting sitting to 30 minutes at a time will help limit the amount of back spasms and stiffness you may experience. 6. You may discontinue the use of ambulatory aids (cane, crutches, etc.) once your strength and confidence allow. 7. You may water pumping station engineer the shower and let water strike your incision when you arrive home at least once daily. Do not take a tub bath, sit in a hot tub or go into a swimming pool until after your first recheck in the office. SPECIAL CARE INSTRUCTIONS: VERY IMPORTANT TO READ AND REVIEW A. Your surgical incision has been closed with a cosmetic suture under the skin that will dissolve in about 6 weeks. In 14 days, you can use a pair of clean scissors and cut the suture that is left outside of the skin at the ends of your incision. 1. The small skin tapes can be removed 7 days after surgery if they have not fallen off by that point. 2. You may keep the wound open to air as much as possible to promote healing after post-op day number 5 unless told otherwise by your doctor. 3. If you think the wound looks like it is becoming infected (redness or worsening drainage) and/or you are experiencing fever, chill or worsening back pain and muscle spasms, contact the office so that we may evaluate you as soon as possible. B. Complications are uncommon, but please contact us if you have any signs or symptoms of: 1. wound infection (fever higher than 102.5 degrees F, redness, separation of wound, drainage, or increasing pain from the incision) 2. blood clots in legs (pain, swelling, redness and warmth in legs) 3. urinary tract infection (fever higher than 102.5 degrees F, burning upon urination or increased frequency of urination) 4. nerve problems (inability to walk on your toes or heels, numbness, loss of bowel or bladder control) 5. any other symptoms that concern you C. Please call the office at if you have any concerns or questions about your operation or recovery. D. No smoking! Smoking drastically decreases the chance of a solid fusion. E. Do not take any anti-inflammatory medications (Indocin, Advil, Motrin, Aspirin, Naprosyn, etc.) as these may inhibit the chance of a solid fusion. Tylenol is okay to take for pain. MANAGING PAIN AFTER SPINAL SURGERY 1. Narcotic medication is intended for short-term use and will be provided for surgical pain. Surgical pain usually lasts for a period of 4-6 weeks. Narcotic medication includes Percocet, Vicodin, Darvocet, Tylenol #3 or Lortab. 2. Longer-term pain is more appropriately treated with non-narcotic medication such as Tylenol ES. 3. Muscle spasm is not appropriately treated with narcotics. Muscle relaxers such as Soma, Flexeril or Skelaxin can be used along with Tylenol ES. 4. Remember that we all live with some "aches and pains". This is not unusual or uncommon after an injury or as we get older. a. Back pain is expected and may include muscle spasms for 4 to 6 weeks after surgery. The pain should gradually improve. If the pain worsens for no apparent reason, please contact the office. b. Intermittent leg pain may also be experienced and should not be concerned about unless it worsens for no apparent reason. If so, please contact the office. 5. We will provide appropriate medication within the normal guidelines of their prescribed use. We will also be very cautious and aware of potential abuse and extended duration of patients' medication needs. a. Pain medications are for your comfort and to assist with sleep and rest so that the tissue can heal. They are not provided in order to return to normal activity and should not be used through the day. To do so or worsening pain at night can result from ongoing tissue damage and development of tolerance to the prescribed medicine. 6. Please allow 2-3 days to process refills. Prescriptions will not be mailed but must be picked up at the office. FOLLOW UP VISIT: Keep your scheduled follow-up appointment. Any questions, please call the office at . Pending Studies at Discharge: No Stand-Alone Forms: [facility], Smoking Cessation Medications and DC Order Prescriptions: New tramadol 50 mg tablet 50 mg PO Q6H PRN (Reason: pain, moderate) Qty: 30 0RF oxycodone 5 mg tablet 5 mg PO Q6H PRN (Reason: pain) Qty: 30 0RF Continued gabapentin 300 mg capsule See Rx Instructions PO TID Qty: 120 3RF Rx Instructions: 300mg (1 tab)morning, 600mg (2 tab) afternoon, 300mg (1 tab) evening aspirin 81 mg tablet,delayed release (DR/EC) 81 mg PO QAM carvedilol 6.25 mg tablet 6.25 mg PO BID losartan 50 mg tablet 50 mg PO BID hydrochlorothiazide 25 mg tablet 12.5 mg PO QAM Discharge Orders: Discharge Order (Routine); Ordered 09/21/22 Ordered By: Brad Dunbar Admission Data Admit Date/Time: 09/19/22 13:52 Attending Provider: Brad Dunbar Admit Provider: Brad Dunbar Primary Care Provider: Arnie Kim Other Providers: Christofer John ; Gregorio Tran
--- NOTE | 2022-09-21 12:09 | Hospitalist Progress Note ---
Date of Service September 21, 2022 Assessment & Plan (1) Lumbar stenosis: Plan: Postoperative day #2 after repeat surgery involving L1-L3 fusion with instrumentation and autograft. Management per primary service. (2) Hypertension: Plan: Stable. Continue Coreg, hydrochlorothiazide, losartan (3) Hyponatremia: Plan: Chronic. Mild. Asymptomatic. We will follow (4) Prostate cancer: Plan: Diagnosed in 2019. History of radiation therapy Plan Primary service is discharging the patient to home today, September 21. He is medically stable Admission and Anticipated Discharge Date Admission Date: September 19, 2022 Subjective Alert and oriented. Medically stable. He will be discharged home today, September 21, per primary service Review of Systems Review of Systems: Constitutional-no fever or chills. Obese ENT-no blurred vision, no double vision, no epistaxis, no sore throat Respiratory-no cough, no wheezing, no shortness of breath Cardiac-no palpitations, no chest pain, no syncope GI-no nausea, vomiting, diarrhea, melena, hematochezia -no urinary retention, no urinary incontinence, no dysuria, no hematuria Musculoskeletal-low back discomfort postoperatively as expected Skin-no bruising, no rashes, no pruritus Neuro-no isolated weakness, no paresthesia, no weakness Psych-no depression, no anxiety Physical Exam Physical Exam: General-alert and oriented x3, no fevers, no chills HEENT-head atraumatic and normocephalic, pupils equal and reactive to light, extraocular muscles intact Neck-no lymphadenopathy or thyromegaly, trachea midline Chest-clear to auscultation percussion. No rales wheezing or rhonchi Cardiac-regular rate and rhythm, normal S1 and S2 Abdomen-normal bowel sounds, nontender, no hepatosplenomegaly Extremities-no cyanosis, clubbing, or edema Neuro-cranial nerves II through XII intact, motor and sensory function within normal limits, strength symmetrical , no focal deficits Psych-normal affect, normal mood Results & Data Results & Data Vital Signs (Past 12 Hours) Vital Signs Temp Pulse Resp BP Pulse Ox O2 Del Method 09/21/22 07:34 36.4 C L 62 18 119/74 99 Room Air 09/21/22 04:00 36.6 C 65 16 128/80 97 Room Air Laboratory Results 09/20/22 05:54 09/20/22 05:54 PG Care Time/CCT Total # of Minutes Spent Total Time Spent with Patient: Total time spent is greater than 50% in coordination of care (as documented) at patient's floor/unit and/or counseling patient: Coding Level of Care Code 21359 SUB INP/OBS CARE 2/35MIN Diagnoses Lumbar stenosis M48.061 Hypertension I10 Hyponatremia E87.1 Prostate cancer C61
[2022-09-21 13:34] LABS: Appearance Urine Cloudy (Clear); Bacteria Urine Automated Negative (Negative); Bilirubin Urine Negative (Negative); Blood Urine Negative (Negative); Color Urine Yellow; Epithelial Cell Urine Auto 0-5 /lpf (0-5); Glucose Urine UA Negative (Negative); Ketones Urine Negative (Negative); Leukocyte Esterase Urine Negative (Negative); Nitrite Urine Negative (Negative); Protein Urine Negative (Negative); RBC Urine Automated 0-4 /hpf (0-4); Specific Gravity Urine 1.022 (1.000-1.030); Urobilinogen Urine Negative (Negative)
== END 2022-09-21 14:37 | disposition home or self-care (01) | DRG 454 ==
LOC: ASU 09:55 → 3E 13:52

== ENCOUNTER 2022-09-23 06:19 | Inpatient (IN) ==
[2022-09-23] MEDS ORDERED: ONDANSETRON INJ 2 MG/ML 2 ML VIAL IV STA (06:32)
[2022-09-23] MEDS ORDERED: HYDROmorphone INJ 1 MG/ML SYRINGE IV STA ×2 (06:32→07:36)
[2022-09-23] MEDS ORDERED: SODIUM CHLORIDE 0.9% 500 ML IV ONE (06:32)
--- NOTE | 2022-09-23 06:36 | Emergency Department Note ---
Impression & Plan Fracture of lumbar spine, Post surgical complication ED Provider Note Name: DANIELLE SORIA Age: 62 Sex: M Arrives Via: Walk-In Informant: Patient, , surgeon Dr. Dunbar ED Provider: Rodney Callejas MD Chief Complaint: Back pain with radiculopathy Impression: As per impressions above Medical Decision Making: Pleasant 62-year-old gentleman with a history of lumbar disc disease and claudication arrives several days post L2-L3 lumbar fusion. Rapidly worsening pain radiating down right thigh. Bilateral paresthesias in feet on rate markable for patient though. He does note some mild urinary retention feelings but no overt retention or loss of bowel or bladder control. Discussed with Dr. Dunbar after examining patient. He requested CT be obtained and then he will evaluate patient. CT does reveal lumbar pedicle fractures and Dr. Dunbar and see patient and plan to go to the OR. Patient will receive multiple rounds of IV narcotics throughout the morning to keep him comfortable. He is brought to the OR in stable condition. I will note I did get some preoperative labs, chest x-ray, EKG. Patient stable throughout. Prior Medical Record and Triage/Nursing Notes reviewed by Me On chart reviewed by me including recent operative reports Differentials:Lumbar fracture, hardware malfunction, hematoma, seroma, infectious etiology, strain, sprain, many other pathologies Vital Signs: reviewed and remarkable for hypertension arrival Interventions: Dilaudid IV x3, nss bolus Labs:Reviewed and remarkable for no significant abnormalities Imaging:X ray results are stated below per my interpretation: Chest: 1 view: No infiltrate, no effusion, normal cardiac border. CT of the lumbar spine as per radiologist. "IMPRESSION: 1. Postoperative changes of the lumbar spine with interval laminectomy, posterior interbody gabrielle and screw fusion and discectomy at L2-L3. 2. Acute comminuted nondisplaced fractures of the right L2 transverse process, pedicle and posterior vertebral body endplate. No significant associated retropulsion, posttraumatic central canal or neural foraminal narrowing." EKG:Per My Interpretation: Indication pre-op: NSR 58 bpm, qtc 416. No Ectopy. No Ischemia. Compared to EKG 05/26/20, no significant changes. Cardiac/Tele Monitoring: Cardiac Monitoring: An Order was placed for continuous cardiac monitoring. The monitor shows a rate of 60 with a normal sinus rhythm. Consults:Dr Dunbar - Ortho Spine - took patient to OR Plan: Disposition: OR Condition: Good History of Present Illness:62-year-old gentleman arrives for evaluation of back pain. Patient was doing okay postoperatively from a L2-L3 spinal fusion 5 days ago. Yesterday he noted back pain increasing. Now pain is radiating down his right leg. Primarily anterior right thigh is numb and tingling. He also notes bilateral toes seem to be tingling more than normal but they do tingle frequently. He notes low back pain is bilateral low radiates into both butt cheeks. Severe pain with any movement. Using home pain medications without any improvement. He has been on oxycodone and tramadol without improvement. Denies any falls, trauma, injuries. Denies any drainage from the wound. He has not had any fevers, chills, nausea, vomiting, abdominal pain, back pain other than the low back pain, chest pain, shortness of breath, leg swelling, calf pain or other concerning signs or symptoms. When discussing bowel movements he notes he has not had 1 since yesterday which is not uncommon. He does note that he feels like he is not fully emptying his bladder. Denies any bleeding or blood thinner history other than aspirin daily. Past History: Hypertension, previous spinal surgery 2 years ago (L2, 4, 5) Home Medications:Aspirin, carvedilol, gabapentin, hydrochlorothiazide, losartan, oxycodone, chart Allergies: No known drug allergies Vitals:Blood Pressure: 165/99, Pulse 65, RR 16, T 36.5C, O2 98% on RA Physical Exam: GENERAL: Patient is very uncomfortable appearing and in moderate distress. EYES: No scleral icterus, unremarkable pupils. RESPIRATORY: No dyspnea. Clear to auscultation and equal bilaterally. No wheeze, no rhonchi. CARDIOVASCULAR: Regular rate and rhythm.No murmurs, rubs, gallops appreciated. GASTROINTESTINAL: Abdomen soft, non-tender, no peritonitis.Bowel sounds positive.No masses appreciated. BACK: No midline tenderness, no CVA tenderness. Patient has severe pain with just trying to ambulate or sit up to show his low back. His low back is covered with a dressing without a significant amount of drainage noted. There is no significant swelling or surrounding erythema appreciated. He has no tenderness to palpation or fluctuance over the lumbar spine. EXTREMITIES: Normal motion all extremities, no cyanosis, no edema. NEUROLOGIC: Alert and oriented, difficult to obtain strength exam in lower legs given the severe pain but he does seem to have full movement. He does have perceived decreased sensation over the right lateral thigh. SKIN: No rash, no jaundice, no diaphoresis. PSYCH: Appropriate GCS: 15 ED Course: Times/Reassessments: Patient's pain was kept under control with IV Dilaudid throughout his stay. He was in the ER over several hours just awaiting transfer to the OR and available OR bed multiple repeat evaluations stable. Rodney Callejas MD Past Med/Surg History Medical History Aortic root dilatation 4.1cm per 06/2021 Echo Chronic back pain Chronic hyponatremia Baseline sodium low 130s per chart review Dyslipidemia Borderline History of prostate cancer Dx 2019, s/p radiation therapy (completed 04/2020), no current issues Hypertension Lumbar radiculopathy Lumbar spinal stenosis 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 fusion procedure Neuropathy Feet Obesity Surgical History H/O elbow surgery Right elbow tendon repair (2006) H/O excision of mass Excision of Gluteal Cyst (10/2018) H/O retained foreign body fully removed 1994 Eyes, 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 History of colonoscopy History of discectomy Lumbar discectomy/laminectomy (2009, 2014) History of herniorrhaphy Right inguinal hernia (1989) History of kyphoplasty T5 kyphoplasty with biopsy (09/16/14): Grade view 1, Glidescope#4, ETT 7.5 at [facility] History of lumbar fusion L3-S1 decompression/fusion (06/15/20): Grade 2 view, Glidescope#4, ETT 8.0 at [facility] History of prostate biopsy History of tonsillectomy As child Family History Mother , age 81 heart disease FHx: abdominal aortic aneurysm Hypertension Father , lived with prostate cancer 35 years, age 99 old age Prostate cancer Brother Prostate cancer Sister Family hx colonic polyps PRE CANCEROUS POLYP Brother Prostate cancer age 65-had prostate removed, still alive and well Sister No problems noted. Sister Family hx colonic polyps Son No problems noted. Son No problems noted. Daughter No problems noted. Other No family history of adverse response to anesthesia Denies family history of Ovarian cancer Myocardial infarction Breast cancer Colorectal cancer Social History Smoking Status: Never smoker Second Hand Exposure: No; Do You Dip or Chew Tobacco: No (Hx); Hx Alcohol Use: Yes Alcohol type: beer Alcohol Intake Frequency: 2-3 x/Week Hx Substance Use: No Preferred Language: Tajik Communication Ability: Effective Visual Impairment: No Limitations Hearing Ability: Normal Sonar Subsystem Equipment Operator Required: No Beliefs That Will Affect Care: None marital status: Current Living Situation: Spouse and Family current occupational status: retired 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 [employer] Feels Safe at Home: Yes Diet: regular caffeine: Yes during the past year weight has: remained stable Dental Care, Regularly: No Physical Activity Frequency: 1-2 Times per Week Seatbelt Use: sometimes Sunscreen Use: No Assistive Devices: Walker Allergies Allergies Allergy/AdvReac Type Severity Reaction Status Date / Time No Known Allergies Allergy Verified 09/23/22 10:07 Home Meds Home Medications Medication Instructions Recorded Confirmed aspirin 81 mg tablet,delayed 81 mg PO QAM 09/28/18 09/23/22 release carvedilol 6.25 mg tablet 6.25 mg PO BID 09/28/18 09/23/22 losartan 50 mg tablet 50 mg PO BID 09/28/18 09/23/22 hydrochlorothiazide 25 mg tablet 12.5 mg PO QAM 08/24/22 09/23/22 Previous Rx's Medication Instructions Recorded gabapentin 300 mg capsule See Rx Instructions PO TID #120 08/15/22 caps oxycodone 5 mg tablet 5 mg PO Q6H PRN pain #30 tabs 09/20/22 tramadol 50 mg tablet 50 mg PO Q6H PRN pain, moderate 09/20/22 #30 tabs Results & Data (ED) Vital Signs Vital Signs - 24 hr 09/23/22 06:22 09/23/22 08:05 09/23/22 09:53 Temperature 36.5 C Temperature Source Temporal Artery Scan Pulse Rate 65 Pulse Rate [Apical] Pulse Rate [Left Finger] 56 L 58 L Pulse Rhythm [Apical] Pulse Rhythm [Left Finger] Pulse Strength [Apical] Pulse Strength [Left Finger] Respiratory Rate 16 20 18 Respiratory Effort / Characteristics Non-Labored Spontaneous Non-Labored Respiratory Depth Normal Normal Respiratory Pattern Regular Blood Pressure 165/99 H Blood Pressure [Left Arm] 147/85 H 145/84 H Blood Pressure Mean 121 Blood Pressure Mean [Left Arm] 105 104 Blood Pressure Position [Left Arm] Pulse Oximetry 98 97 97 Oxygen Delivery Method Room Air Room Air Room Air Oxygen Flow Rate Sepsis Recent Fever Within 48 Hours No Sepsis New/Unexplained Change in Mental Status No Sepsis Action Taken by Nursing No Action Required 09/23/22 10:54 09/23/22 11:58 09/23/22 12:39 Temperature 36.5 C Temperature Source Oral Pulse Rate Pulse Rate [Apical] Pulse Rate [Left Finger] 62 62 61 Pulse Rhythm [Apical] Pulse Rhythm [Left Finger] Regular Pulse Strength [Apical] Pulse Strength [Left Finger] Normal Respiratory Rate 18 18 20 Respiratory Effort / Characteristics Non-Labored Non-Labored Non-Labored Spontaneous Respiratory Depth Normal Normal Normal Respiratory Pattern Regular Regular Regular Blood Pressure Blood Pressure [Left Arm] 121/74 160/89 H 180/91 H Blood Pressure Mean Blood Pressure Mean [Left Arm] 89 112 120 Blood Pressure Position [Left Arm] Sitting Pulse Oximetry 93 100 98 Oxygen Delivery Method Room Air Room Air Oxygen Flow Rate Sepsis Recent Fever Within 48 Hours Sepsis New/Unexplained Change in Mental Status Sepsis Action Taken by Nursing 09/23/22 13:58 09/23/22 14:05 09/23/22 14:15 Temperature 36 C L Temperature Source Temporal Artery Scan Pulse Rate Pulse Rate [Apical] 88 76 69 Pulse Rate [Left Finger] Pulse Rhythm [Apical] Regular Regular Regular Pulse Rhythm [Left Finger] Pulse Strength [Apical] Normal Normal Normal Pulse Strength [Left Finger] Respiratory Rate 16 12 12 Respiratory Effort / Characteristics Non-Labored Spontaneous Non-Labored Spontaneous Non-Labored Spontaneous Respiratory Depth Normal Normal Normal Respiratory Pattern Regular Regular Regular Blood Pressure Blood Pressure [Left Arm] 183/90 H 165/81 H 181/87 H Blood Pressure Mean Blood Pressure Mean [Left Arm] 121 109 118 Blood Pressure Position [Left Arm] Pulse Oximetry 97 94 94 Oxygen Delivery Method Oxymask Oxymask Room Air Oxygen Flow Rate 6 6 Sepsis Recent Fever Within 48 Hours Sepsis New/Unexplained Change in Mental Status Sepsis Action Taken by Nursing 09/23/22 14:25 09/23/22 14:35 Temperature 36.5 C Temperature Source Oral Pulse Rate Pulse Rate [Apical] 67 55 L Pulse Rate [Left Finger] Pulse Rhythm [Apical] Regular Regular Pulse Rhythm [Left Finger] Pulse Strength [Apical] Normal Normal Pulse Strength [Left Finger] Respiratory Rate 12 12 Respiratory Effort / Characteristics Non-Labored Spontaneous Non-Labored Spontaneous Respiratory Depth Normal Normal Respiratory Pattern Regular Regular Blood Pressure Blood Pressure [Left Arm] 189/94 H 170/86 H Blood Pressure Mean Blood Pressure Mean [Left Arm] 125 114 Blood Pressure Position [Left Arm] Pulse Oximetry 96 99 Oxygen Delivery Method Nasal Cannula Nasal Cannula Oxygen Flow Rate 2 2 Sepsis Recent Fever Within 48 Hours Sepsis New/Unexplained Change in Mental Status Sepsis Action Taken by Nursing Laboratory Data 09/23/22 06:40 09/23/22 06:40 Lab Results 09/23/22 09/23/22 09/23/22 Range/Units 06:40 06:40 09:49 WBC 9.20 (4.8-10.8) K/ul RBC 3.54 L (4.70-6.10) M/uL Hgb 12.6 L (14.0-18.0) g/dl Hct 35.9 L (42.0-52.0) % MCV 101.4 H (80.0-100.0) fL MCH 35.6 H (25.0-34.0) pg MCHC 35.1 (32.0-36.0) g/dL RDW Std Deviation 46.1 (36.4-46.3) fL RDW Coeff of Jhon 12.3 (11.5-14.5) % Plt Count 172 (130-400) K/uL MPV 10.4 (9.4-12.4) fL Immature Gran % (Auto) 0.5 % Neut % (Auto) 75.4 % Lymph % (Auto) 13.4 % [place] % (Auto) 8.8 % Eos % (Auto) 1.2 % Baso % (Auto) 0.7 % Neut # (Auto) 6.94 H (1.40-6.50) K/uL Lymph # (Auto) 1.23 (1.2-3.4) K/uL [place] # (Auto) 0.81 H (0.11-0.59) K/uL Eos # (Auto) 0.11 (0-0.50) K/uL Baso # (Auto) 0.06 (0-0.2) K/uL Immature Gran # (Auto) 0.05 (0.01-0.20) K/uL Sodium 137 (136-145) mmol/L Potassium 4.0 (3.5-5.1) mmol/L Chloride 101 (98-107) mmol/L Carbon Dioxide 31 (21-32) mmol/L Anion Gap 5 (3-11) BUN 19 (6-23) mg/dl Creatinine 0.98 (0.6-1.4) mg/dl Est Cr Clr Drug Dosing 102.5 ml/min Est GFR ( Amer) 94.1 ml/min Est GFR (Non-Af Amer) 81.2 ml/min BUN/Creatinine Ratio 19.4 (10-20) Glucose 105 H (70-99(Fasting)) mg/dl Calcium 9.5 (8.6-10.3) mg/dl SARS-CoV-2, RNA, NAAT NEGATIVE (NEGATIVE) Administered Medications Fentanyl Citrate (Fentanyl Citrate Pf 100 Mcg/2 Ml Vial) 50 mcg IV Q5M PRN PRN Reason: PACU Use Only-Pain Stop: 09/23/22 20:52 Last Admin: 09/23/22 14:38 Dose: 50 mcg Documented By: Admin: 09/23/22 14:33 Dose: 50 mcg Documented By: Admin: 09/23/22 14:28 Dose: 50 mcg Documented By: Admin: 09/23/22 14:23 Dose: 50 mcg Documented By: OLEGARIO Hydromorphone HCl (Hydromorphone Inj 1 Mg/Ml Syringe) 1 mg IV Q15M PRN PRN Reason: Pain Stop: 10/07/22 09:32 Last Admin: 09/23/22 12:11 Dose: 1 mg Documented By: Admin: 09/23/22 10:24 Dose: 1 mg Documented By: EMERITA Discontinued Medications Bupivacaine HCl/Epinephrine Bitart (Bupivacaine/Epinephrine 0.25% 1:200,000 30 Ml Vial) Confirm Administered Dose 30 ml .ROUTE .STK-MED ONE Stop: 09/23/22 12:44 Last Admin: 09/23/22 13:23 Dose: 20 ml Documented By: GMB Cefazolin Sodium (Cefazolin 330 Mg/Ml 1 Gm Vial) Confirm Administered Dose 990 mg .ROUTE .STK-MED ONE Stop: 09/23/22 12:44 Last Admin: 09/23/22 13:25 Dose: 950 mg Documented By: GMB Gentamicin Sulfate (Gentamicin Sulfate 40 Mg/Ml 2 Ml Vial) Confirm Administered Dose 240 mg .ROUTE .STK-MED ONE Stop: 09/23/22 12:43 Last Admin: 09/23/22 13:24 Dose: 240 mg Documented By: GMB Hydromorphone HCl (Hydromorphone Inj 1 Mg/Ml Syringe) 1 mg IV NOW STA Stop: 09/23/22 06:33 Last Admin: 09/23/22 06:46 Dose: 1 mg Documented By: QGV Hydromorphone HCl (Hydromorphone Inj 1 Mg/Ml Syringe) 1 mg IV NOW STA Stop: 09/23/22 07:37 Last Admin: 09/23/22 08:08 Dose: 1 mg Documented By: ARABELLA Sodium Chloride (Nss) 500 mls @ 999 mls/hr IV .Q31M ONE Stop: 09/23/22 07:02 Last Infusion: 09/23/22 08:35 Dose: 0 mls/hr Documented By: Admin: 09/23/22 06:47 Dose: 999 mls/hr Documented By: QGV Ondansetron HCl (Ondansetron Inj 2 Mg/Ml 2 Ml Vial) 4 mg IV NOW STA Stop: 09/23/22 06:33 Last Admin: 09/23/22 06:46 Dose: 4 mg Documented By: QGV Vancomycin HCl (Vancomycin Hcl 1000mg/20ml Vial) Confirm Administered Dose 50 mg .ROUTE .ST-MED ONE Stop: 09/23/22 12:43 Last Admin: 09/23/22 13:24 Dose: 50 mg Documented By: SID Imaging Data Radiologist's Impression: Lumbar Spine CT 09/23/22 07:31 CT lumbar spine wo con HISTORY: 62 years-old Male post op back pain, right leg radiation low back pain with recent surgery COMPARISON: MRI 05/27/2022 TECHNIQUE: Multiple axial CT images of the lumbar spine were obtained without the use of IV contrast. A dose lowering technique was used consistent with the principals of ALARA. FINDINGS: L1 vertebral body hemangioma. Posterior interbody gabrielle and screw fusion hardware is noted at L2-S1 with L2-L3, L4-L5 and L5-S1 discectomy. The postoperative changes at L2-L3 are new from prior MRI. There is no evidence of hardware fracture or loosening. Prior exam and is comminuted acute appearing fracture in involving the right L2 transverse process and pedicle without significant displacement. Additional fracturing is noted within the posterior endplate of L2, image 48 of the sagittal series. No significant retropulsion or vertebral body height loss. Artifact from the hardware limits the study. Bone graft material is noted in the lumbar spine with associated laminectomy changes. The muscles in the posterior operative bed. Suboptimal visualization of the central canal. Bilateral renal cysts redemonstrated. IMPRESSION: 1. Postoperative changes of the lumbar spine with interval laminectomy, posterior interbody gabrielle and screw fusion and discectomy at L2-L3. 2. Acute comminuted nondisplaced fractures of the right L2 transverse process, pedicle and posterior vertebral body endplate. No significant associated retropulsion, posttraumatic central canal or neural foraminal narrowing. ACT 112: Negative or not required by law. The above report was generated using voice recognition software. It may contain grammatical, syntax or spelling errors. Electronically signed by: Rudy Barbosa M.D. 09/23/2022 9:13 AM Chest X-Ray 09/23/22 09:33 XR chest 1V portable HISTORY: Back pain. pre-op clearance COMPARISON: Chest 09/05/2022. FINDINGS: The lungs are clear. The cardiac silhouette remains borderline enlarged. No pleural effusions. No pneumothorax. Thoracic spine kyphoplasty again noted. IMPRESSION: No acute process. ACT 112: Negative or not required by law. Electronically signed by: Emigdio Segundo M.D. 09/23/2022 10:13 AM Discharge Plan Visit Data Chief Complaint: Leg Injury/Pain Stated Complaint: LEG PAIN ED Provider: Rodney Callejas Discharge Problem: Fracture of lumbar spine, Post surgical complication Discharge Instructions Interventions: ED Discharge Assessment Last Done: 09/23/22 12:26 Forms Stand Alone Forms: [employer] Prescriptions Prescriptions: No Action gabapentin 300 mg capsule See Rx Instructions PO TID Qty: 120 3RF Rx Instructions: 300mg (1 tab)morning, 600mg (2 tab) afternoon, 300mg (1 tab) evening aspirin 81 mg tablet,delayed release (DR/EC) 81 mg PO QAM carvedilol 6.25 mg tablet 6.25 mg PO BID losartan 50 mg tablet 50 mg PO BID hydrochlorothiazide 25 mg tablet 12.5 mg PO QAM tramadol 50 mg tablet 50 mg PO Q6H PRN (Reason: pain, moderate) Qty: 30 0RF oxycodone 5 mg tablet 5 mg PO Q6H PRN (Reason: pain) Qty: 30 0RF Referrals Referrals: Arnie Kim DO [Primary Care Provider] - Fracture of lumbar spine Qualifiers: Encounter type: initial encounter Lumbar vertebra fracture level: L2 Fracture type: closed Fracture morphology: other fracture Qualified Code(s): S32.028A - Other fracture of second lumbar vertebra, initial encounter for closed fracture Post surgical complication Qualifiers: Surgical complication system/body Area: musculoskeletal system Surgical complication type: unspecified Procedure type: musculoskeletal Qualified Code(s): M96.89 - Other intraoperative and postprocedural complications and disorders of the musculoskeletal system
[2022-09-23 07:05] LABS: Basophils # (auto) 0.06 K/uL (0-0.2); Basophils % (auto) 0.7 %; Eosinophils # (auto) 0.11 K/uL (0-0.50); Eosinophils % (auto) 1.2 %; Hematocrit (blood only) 35.9 % (42.0-52.0); Hemoglobin 12.6 g/dl (14.0-18.0); Immature Granulocytes # (auto) 0.05 K/uL (0.01-0.20); Immature Granulocytes % (auto) 0.5 %; Lymphocytes # (auto) 1.23 K/uL (1.2-3.4); Lymphocytes % (auto) 13.4 %; Mean Corpuscular Hemoglobin 35.6 pg (25.0-34.0); Mean Corpuscular Hgb Conc 35.1 g/dL (32.0-36.0); Mean Corpuscular Volume 101.4 fL (80.0-100.0); Mean Platelet Volume 10.4 fL (9.4-12.4); Monocytes # (auto) 0.81 K/uL (0.11-0.59); Monocytes % (auto) 8.8 %; Neutrophils # (auto) 6.94 K/uL (1.40-6.50); Neutrophils % (auto) 75.4 %; Platelet Count 172 K/uL (130-400); RDW Coefficient of Variation 12.3 % (11.5-14.5); RDW Standard Deviation 46.1 fL (36.4-46.3); Red Blood Count 3.54 M/uL (4.70-6.10)
[2022-09-23 07:18] LABS: BUN Creatinine Ratio 19.4 (10-20); Calcium 9.5 mg/dl (8.6-10.3); Creatinine Clr Calc Pharmacy 102.5 ml/min; Est GFR (African American) 94.1 ml/min; Est GFR (Non-African American) 81.2 ml/min
--- NOTE | 2022-09-23 09:15 | CT Scan Report ---
CT lumbar spine wo con HISTORY: 62 years-old Male post op back pain, right leg radiation low back pain with recent surgery COMPARISON: MRI 05/27/2022 TECHNIQUE: Multiple axial CT images of the lumbar spine were obtained without the use of IV contrast. A dose lowering technique was used consistent with the principals of ALARA. FINDINGS: L1 vertebral body hemangioma. Posterior interbody gabrielle and screw fusion hardware is noted at L2-S1 wit h L2-L3, L4-L5 and L5-S1 discectomy. The postoperative changes at L2-L3 are new from prior MRI. There is no evidence of hardware fracture or loosening. Prior exam and is comminuted acute appearing fracture in involving the right L2 transverse process an d pedicle without significant displacement. Additional fracturing is noted within the posterior endpl ate of L2, image 48 of the sagittal series. No significant retropulsion or vertebral body height loss . Artifact from the hardware limits the study. Bone graft material is noted in the lumbar spine with associated laminectomy changes. The muscles in the posterior operative bed. Suboptimal visualization of the central canal. Bilateral renal cysts redemonstrated. IMPRESSION: 1. Postoperative changes of the lumbar spine with interval laminectomy, posterior interbody gabrielle and s crew fusion and discectomy at L2-L3. 2. Acute comminuted nondisplaced fractures of the right L2 transverse process, pedicle and posterior vertebral body endplate. No significant associated retropulsion, posttraumatic central canal or neura l foraminal narrowing. ACT 112: Negative or not required by law. The above report was generated using voice recognition software. It may contain grammatical, syntax o r spelling errors. Electronically signed by: Rudy Barbosa M.D. 09/23/2022 9:13 AM
--- NOTE | 2022-09-23 09:35 | History & Physical Report ---
Date of Service September 23, 2022 Assessment & Plan (1) Neurogenic claudication due to lumbar spinal stenosis: Plan: Assessment postop radiculopathy. Plan at this time I am concerned he has had development of severe radiculopathy. CAT scan demonstrates evidence of wide decompression no evidence of gross hardware failure. I do suspect there is evidence of migration of the bone graft and fluid collection along the right transforaminal L2-L3 region. This undoubtedly is creating radiculopathy. I am recommending urgent lumbar irrigation and debridement. Patient understands agrees with this plan. He is currently n.p.o. we will try for surgery later today. History of Present Illness Chief Complaint: Severe right leg pain Primary Care Provider: Arnie Kim, This is a 62-year-old male well-known to me status post lumbar decompression fusion Monday of this week. He had a normal postoperative course and was discharged Monday. Unfortunately morning began experiencing right anterior thigh pain this became incapacitating in nature. He comes the ER this morning with severe pain. At this time he states the left lower extremity is asymptomatic he has pain rating to the right anterior thigh to the knee. Does not extend below the knee. Does get some numbness and tingling to the feet. He is in severe distress requiring IV narcotics to control symptoms. He notes marked decline in ability to ambulate secondary to the pain and weakness. Allergies Allergy/AdvReac Type Severity Reaction Status Date / Time No Known Allergies Allergy Verified 09/19/22 10:41 Home Medications Medication Instructions Recorded Confirmed Type aspirin 81 mg tablet,delayed 81 mg PO QAM 09/28/18 09/22/22 History release carvedilol 6.25 mg tablet 6.25 mg PO BID 09/28/18 09/22/22 History losartan 50 mg tablet 50 mg PO BID 09/28/18 09/22/22 History gabapentin 300 mg capsule See Rx Instructions PO TID #120 08/15/22 09/22/22 Rx caps hydrochlorothiazide 25 mg tablet 12.5 mg PO QAM 08/24/22 09/22/22 History oxycodone 5 mg tablet 5 mg PO Q6H PRN pain #30 tabs 09/20/22 09/22/22 Rx tramadol 50 mg tablet 50 mg PO Q6H PRN pain, moderate 09/20/22 09/22/22 Rx #30 tabs Past Med/Surg History Medical History Aortic root dilatation 4.1cm per 06/2021 Echo Chronic back pain Chronic hyponatremia Baseline sodium low 130s per chart review Dyslipidemia Borderline History of prostate cancer Dx 2019, s/p radiation therapy (completed 04/2020), no current issues Hypertension Lumbar radiculopathy Lumbar spinal stenosis 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 fusion procedure Neuropathy Feet Obesity Surgical History H/O elbow surgery Right elbow tendon repair (2006) H/O excision of mass Excision of Gluteal Cyst (10/2018) H/O retained foreign body fully removed 1994 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, 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 History of colonoscopy History of discectomy Lumbar discectomy/laminectomy (2009, 2014) History of herniorrhaphy Right inguinal hernia (1989) History of kyphoplasty T5 kyphoplasty with biopsy (09/16/14): Grade view 1, Glidescope#4, ETT 7.5 at [facility] History of lumbar fusion L3-S1 decompression/fusion (06/15/20): Grade 2 view, Glidescope#4, ETT 8.0 at [facility] History of prostate biopsy History of tonsillectomy As child Family History Mother FHx: abdominal aortic aneurysm Hypertension Father Prostate cancer Brother Prostate cancer Sister Family hx colonic polyps Brother Prostate cancer Sister No problems noted. Sister Family hx colonic polyps Son No problems noted. Son No problems noted. Daughter No problems noted. Other No family history of adverse response to anesthesia Denies family history of Ovarian cancer Myocardial infarction Breast cancer Colorectal cancer Social History Smoking Status: Never smoker Second Hand Exposure: No; Do You Dip or Chew Tobacco: No (Hx); Hx Alcohol Use: Yes Alcohol type: beer Alcohol Intake Frequency: 2-3 x/Week Hx Substance Use: No Preferred Language: Swazi Communication Ability: Effective Visual Impairment: No Limitations Hearing Ability: Normal Budget And Policy Analyst Required: No Beliefs That Will Affect Care: None marital status: Current Living Situation: Spouse and Family current occupational status: retired 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 I was able to have him sit up for me with assistance. The lumbar spine does have some evidence of modest swelling and no erythema or gross drainage. He has reasonable strength detailed testing lower extremity on the left. The right leg has marked limitations with hip flexion and quadriceps on the right L4-5. Plantarflexion dorsiflexion intact. Sensory is markedly diminished along the right anterior thigh. Results & Data Results & Data Vital Signs (Past 12 Hours) Vital Signs Temp Pulse Pulse Resp BP BP Pulse Ox 09/23/22 08:05 56 L 20 147/85 H 97 09/23/22 06:22 36.5 C 65 16 165/99 H 98 O2 Del Method 09/23/22 08:05 Room Air 09/23/22 06:22 Room Air
--- NOTE | 2022-09-23 10:15 | XRay Report ---
XR chest 1V portable HISTORY: Back pain. pre-op clearance COMPARISON: Chest 09/05/2022. FINDINGS: The lungs are clear. The cardiac silhouette remains borderline enlarged. No pleural effusio ns. No pneumothorax. Thoracic spine kyphoplasty again noted. IMPRESSION: No acute process. ACT 112: Negative or not required by law. Electronically signed by: Emigdio Segundo M.D. 09/23/2022 10:13 AM
[2022-09-23] MEDS: HYDROmorphone INJ 1 MG/ML SYRINGE IV PRN ×2 (10:24→12:11)
[2022-09-23] MEDS ORDERED: ROCURONIUM BROMIDE 10 MG/ML 5 ML VIAL IV ONE (11:58)
[2022-09-23] MEDS ORDERED: DEXAMETHASONE SOD INJ 4 MG/ML VIAL ONE (11:58)
[2022-09-23] MEDS ORDERED: ONDANSETRON INJ 2 MG/ML 2 ML VIAL ONE (11:58)
[2022-09-23] MEDS ORDERED: PROPOFOL IV EMULSION 10 MG/ML 20 ML VIAL IV ONE (11:58)
[2022-09-23] MEDS ORDERED: SUGAMMADEX SODIUM 200 MG/2 ML VIAL IV ONE ×2 (11:59→13:41)
[2022-09-23] MEDS ORDERED: fentaNYL citrate PF 100 MCG/2 ML VIAL ONE (11:59)
[2022-09-23] MEDS ORDERED: VANCOMYCIN HCL 1000MG/20ML VIAL ONE (12:42)
[2022-09-23] MEDS ORDERED: GENTAMICIN SULFATE 40 MG/ML 2 ML VIAL ONE (12:42)
[2022-09-23] MEDS ORDERED: BUPIVACAINE/EPINEPHRINE 0.25% 1:200,000 30 ML VIAL ONE (12:43)
[2022-09-23] MEDS ORDERED: ceFAZolin 330 MG/ML 1 GM VIAL ONE ×2 (12:43→13:15)
--- NOTE | 2022-09-23 12:45 | Anesthesiology Consultation ---
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 History Surgery Operation Date: 09/23/22 07:00 Proposed Procedures p Irrigation and Debridement Lumbar Spine - Brad Dunbar DO Height/Weight Height: 5 ft 11 in Weight: 125 kg Allergies Allergy/AdvReac Type Severity Reaction Status Date / Time No Known Allergies Allergy Verified 09/23/22 10:07 Medications Home Medications Medication Instructions Recorded Confirmed Last Taken aspirin 81 mg tablet,delayed 81 mg PO QAM 09/28/18 09/23/22 09/22/22 release carvedilol 6.25 mg tablet 6.25 mg PO BID 09/28/18 09/23/22 09/22/22 losartan 50 mg tablet 50 mg PO BID 09/28/18 09/23/22 09/22/22 gabapentin 300 mg capsule See Rx Instructions PO TID #120 08/15/22 09/23/22 09/22/22 caps hydrochlorothiazide 25 mg tablet 12.5 mg PO QAM 08/24/22 09/23/22 09/22/22 oxycodone 5 mg tablet 5 mg PO Q6H PRN pain #30 tabs 09/20/22 09/23/22 09/22/22 tramadol 50 mg tablet 50 mg PO Q6H PRN pain, moderate 09/20/22 09/23/22 09/22/22 #30 tabs Active Medications Generic Name Dose Route Start Last Admin Trade Name Freq PRN Reason Stop Dose Admin Hydromorphone HCl 1 mg 09/23/22 09:33 09/23/22 12:11 Hydromorphone Inj 1 Mg/Ml Syringe IV 10/07/22 09:32 1 mg Q15M PRN Administration Pain Past Medical History Medical History Aortic root dilatation 4.1cm per 06/2021 Echo Chronic back pain Chronic hyponatremia Baseline sodium low 130s per chart review Dyslipidemia Borderline History of prostate cancer Dx 2019, s/p radiation therapy (completed 04/2020), no current issues Hypertension Lumbar radiculopathy Lumbar spinal stenosis 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 fusion procedure Neuropathy Feet Obesity Past Family History Family History Mother , age 81 heart disease FHx: abdominal aortic aneurysm Hypertension Father , lived with prostate cancer 35 years, age 99 old age Prostate cancer Brother Prostate cancer Sister Family hx colonic polyps PRE CANCEROUS POLYP Brother Prostate cancer age 65-had prostate removed, still alive and well Sister No problems noted. Sister Family hx colonic polyps Son No problems noted. Son No problems noted. Daughter No problems noted. 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 History of colonoscopy History of discectomy Lumbar discectomy/laminectomy (2009, 2014) History of herniorrhaphy Right inguinal hernia (1989) History of kyphoplasty T5 kyphoplasty with biopsy (09/16/14): Grade view 1, Glidescope#4, ETT 7.5 at [facility] History of lumbar fusion L3-S1 decompression/fusion (06/15/20): Grade 2 view, Glidescope#4, ETT 8.0 at [facility] History of prostate biopsy History of tonsillectomy As child Social History Smoking Status: Never smoker tobacco type: smokeless tobacco Do You Dip or Chew Tobacco: No (Hx) Hx Alcohol Use: Yes Alcohol type: beer alcohol intake frequency: a few times a week Hx Substance Use: No substance use type: does not use Physical Exam Vital Signs Last Vital Signs Temp 97.7 F 09/23/22 06:22 Pulse 62 09/23/22 11:58 Resp 18 09/23/22 11:58 BP 160/89 H 09/23/22 11:58 Pulse Ox 100 09/23/22 11:58 O2 Del Method Room Air 09/23/22 11:58 Testing Laboratory Results 09/23/22 06:40 09/23/22 06:40 Electrocardiogram Date: 09/23/22 Findings: + SB @ (58 bpm) Chest X-Ray Date: 09/23/22 Findings: + NAD Echocardiogram Date: 06/28/21 LV cavity size is normal LV wall thickness is mildly increased LV wall motion is normal LV EF 60-64% There is no significant valvular disease A trivial right lateral loculated pericardial effusion of non hemodynamic significance is present
[2022-09-23] MEDS ORDERED: ONDANSETRON INJ 2 MG/ML 2 ML VIAL IV PRN ×2 (12:52→15:16)
[2022-09-23] MEDS ORDERED: ATROPINE SULFATE 0.1 MG/ML 10ML SYR IV PRN (12:52)
[2022-09-23] MEDS ORDERED: ePHEDrine sulfate 50 MG/ML AMP IV PRN (12:52)
[2022-09-23] MEDS ORDERED: HYDROmorphone INJ 1 MG/ML SYRINGE IV PRN (12:52)
--- NOTE | 2022-09-23 13:36 | Operative Report ---
Post Operative Report Pre & Post Diagnosis Operation Date: 09/23/22 07:00 Preop diagnosis Postop radiculopathy Postop diagnosis Lumbar spine seroma. I identified the patient and participated in the time-out.: Yes Procedure Operation Date: 09/23/22 07:00 <No data on this case meets the specified criteria> Surgeon Brad Dunbar DO Strategic Sourcing Specialist Lj Lira Estimated Blood Loss 10 Findings Consistent with Post-Op Diagnosis Specimens none Indications This is a 62 old male who presents with worsening back and leg pain approximately 4 days status post lumbar decompression fusion. Subsequently elected undergo urgent irrigation debridement. Description of Procedure Patient met with identified informed consent obtained. Patient was then taken to the operative suite underwent a patient placed in a prone position on the Aries table atop the Lalo frame. All bony prominences well-padded eyes inspected to ensure no external pressure placed upon the. This point lumbar spine was prepped and draped in a sterile fashion. Utilizing the previous incision site the incision was opened and released the fascial sutures to reveal an approximate 300 cc of a serosanguineous fluid. The area was then copiously irrigated with several liters of saline explored to ensure no further compression along the neural elements. The hardware was explored and noted to be intact. I then placed a 15 round GABE drain. An approximately 5 cc of Stimulan beads impregnated with vancomycin and gentamicin throughout the incision. Incision was then closed with 1 Vicryl the fascia 2-0 Vicryl subcutaneously and 4 Monocryl for final skin closure. Steri-Strips sterile dressing placed. Patient waken taken to PACU stable condition. Please note Lj Lira was present at the entire surgeon while the patient positioning complex portion of the surgery and final skin closure. I attest to the content of the Intraoperative Record and any orders documented therein. Any exceptions are noted below.
[2022-09-23] MEDS ORDERED: SUCCINYLCHOLINE CHLORIDE 20 MG/ML 10 ML VIAL IV ONE (13:38)
[2022-09-23] MEDS: fentaNYL citrate PF 100 MCG/2 ML VIAL IV PRN ×4 (14:23→14:38)
--- NOTE | 2022-09-23 14:47 | Anesthesiology Progress Note ---
Date of Service September 23, 2022 Anesthesia Post Procedure Vital Signs Vital Signs: Temp Pulse Pulse Pulse Resp BP BP 09/23/22 14:45 56 L 12 157/81 H 09/23/22 14:35 36.5 C 55 L 12 170/86 H 09/23/22 14:25 67 12 189/94 H 09/23/22 14:15 69 12 181/87 H 09/23/22 14:05 76 12 165/81 H 09/23/22 13:58 36 C L 88 16 183/90 H 09/23/22 12:39 36.5 C 61 20 180/91 H 09/23/22 11:58 62 18 160/89 H 09/23/22 10:54 62 18 121/74 09/23/22 09:53 58 L 18 145/84 H 09/23/22 08:05 56 L 20 147/85 H 09/23/22 06:22 36.5 C 65 16 165/99 H Pulse Ox O2 Del Method O2 Flow Rate 09/23/22 14:45 99 Nasal Cannula 2 09/23/22 14:35 99 Nasal Cannula 2 09/23/22 14:25 96 Nasal Cannula 2 09/23/22 14:15 94 Room Air 09/23/22 14:05 94 Oxymask 6 09/23/22 13:58 97 Oxymask 6 09/23/22 12:39 98 Room Air 09/23/22 11:58 100 Room Air 09/23/22 10:54 93 09/23/22 09:53 97 Room Air 09/23/22 08:05 97 Room Air 09/23/22 06:22 98 Room Air Pain Intensity Right Leg: Pain Intensity: 5 Lower Back: Pain Intensity: 4 Transfer of Care Handoff Completed per policy Notes Mental Status: alert / awake / arousable Patient Amnestic to Procedure: Yes Nausea / Vomiting: adequately controlled Pain: adequately controlled Airway Patency, RR, SpO2: stable & adequate BP & HR: stable & adequate Hydration State: stable & adequate Anesthetic Complications: no major complications apparent
[2022-09-23] MEDS ORDERED: LORazepam 2 MG/1 ML VIAL IV PRN (15:16)
[2022-09-23] MEDS ORDERED: ACETAMINOPHEN 1,000 MG/100 ML VIAL IV PRN (15:16)
[2022-09-23] MEDS ORDERED: MAGNESIUM HYDROXIDE SUSP 30 ML UDC PO PRN (15:16)
[2022-09-23] MEDS ORDERED: DO NOT ADMINISTER PNEUMOCOCCAL VACCINE PRN (15:16)
[2022-09-23] MEDS ORDERED: NALOXONE HCL 0.4 MG/1 ML VIAL/CARP IV PRN (15:16)
[2022-09-23] MEDS ORDERED: PROMETHAZINE HCL 12.5 MG in SODIUM CHLORIDE 0.9% 50 ML IV PRN (15:16)
[2022-09-23] MEDS ORDERED: DO NOT ADMINISTER FLU VACCINE PRN (15:16)
[2022-09-23] MEDS ORDERED: ONDANSETRON 4 MG OD TAB PO PRN (15:16)
[2022-09-23] MEDS ORDERED: diphenhydrAMINE Capsule 25 MG CAP PO PRN (15:16)
[2022-09-23] MEDS ORDERED: bisacodyL 10 MG SUPP PR PRN (15:16)
[2022-09-23] MEDS ORDERED: FAMOTIDINE 20 MG TAB PO PRN (15:16)
[2022-09-23] MEDS ORDERED: METOCLOPRAMIDE HCL INJ 5 MG/ML 2 ML VIAL IV PRN (15:16)
[2022-09-23] MEDS ORDERED: LORazepam 0.5 MG TAB PO PRN (15:16)
[2022-09-23] MEDS ORDERED: hydrOXYzine HCl 25 MG TAB PO PRN (15:16)
[2022-09-23] MEDS ORDERED: SOD PHOSPHATE/SOD BIPHOSPHATE ENEMA 132 ML BTL PR PRN (15:16)
[2022-09-23] MEDS ORDERED: ALUMINUM/MAGNESIUM SUSP 30 ML UDC PO PRN (15:16)
[2022-09-23] MEDS ORDERED: ACETAMINOPHEN 500 MG TAB PO PRN (15:16)
[2022-09-23] MEDS: LACTATED RINGER'S 1,000 ML IV SCH ×2 (15:33→22:08)
[2022-09-23] MEDS: GABAPENTIN 600 MG TAB PO SCH (17:00)
--- NOTE | 2022-09-23 17:49 | Electrocardiogram Report ---
Test Reason : Blood Pressure : / mmHG Vent. Rate : 058 BPM Atrial Rate : 058 BPM P-R Int : 184 ms QRS Dur : 084 ms QT Int : 424 ms P-R-T Axes : 068 047 056 degrees QTc Int : 416 ms Sinus bradycardia Otherwise normal ECG When compared with ECG of 26-MAY-2020 09:46, No significant change was found Confirmed by Surya Long ([id number]) on 09/23/2022 5:49:15 PM Referred By: REFERRED SELF Confirmed By:Ronald Long
--- NOTE | 2022-09-23 19:42 | Consultation ---
Date of Consultation September 23, 2022 Assessment & Plan (1) Lumbar stenosis: 62yo male with lumbar spinal stenosis and neurogenic claudication s/p L2-L3 decompression and fusion with hardware placement o 09/19/22 presents with worsening pain and radicular symptoms. Patient returned to the OR today for debridement and washout, drainage of seroma. Patient presently with well controlled pain. -Pain management, activity per primary team (2) Hypertension: Blood pressure mildly elevated. -Pain control -Continue Carvedilol, HCTZ and Losartan -Continue to monitor History of Present Illness Reason for Consultation: medical management Attending Physician: Brad Dunbar, DO History of Present Illness Edwin Valente is a 62yo male with history of hypertension, obesity and neurogenic claudication secondary to lumbar spinal stenosis. Patient had an L2- L3 decompression and fusion connecting to existing hardware at L3-S1 performed by Dr. Dunbar on 09/19/22. The surgery went well with no complications identified. Patient was discharged home in stable condition on 09/21/22. Patient was doing fairly well at home. This AM 09/23/22 he had rapidly worsening pain radiating down his right thigh as well as bilateral paresthesias in the feet consistent with post-operative radiculopathy. A CT was performed which revealed lumbar pedicle fractures, possible migration of the bone graft and fluid collection along the right transforaminal L2-L3 region. Patient was taken to the OR for lumbar irrigation and debridement. In the OR patient found to have post-operative seroma. 300mL of serosanguineous fluid was drained. The area was well irrigated and a GABE drain was placed prior to closure. Patient was returned to the floor in stable condition. Presently doing well with no complaints. Pain is well controlled. He has ambulated without difficult. He has eaten dinner and urinated without diffi culty. No complaints at this time. Allergies Allergy/AdvReac Type Severity Reaction Status Date / Time No Known Allergies Allergy Verified 09/23/22 10:07 Home Medications Medication Instructions Recorded Confirmed Type aspirin 81 mg tablet,delayed 81 mg PO QAM 09/28/18 09/23/22 History release carvedilol 6.25 mg tablet 6.25 mg PO BID 09/28/18 09/23/22 History losartan 50 mg tablet 50 mg PO BID 09/28/18 09/23/22 History gabapentin 300 mg capsule See Rx Instructions PO TID #120 08/15/22 09/23/22 Rx caps hydrochlorothiazide 25 mg tablet 12.5 mg PO QAM 08/24/22 09/23/22 History oxycodone 5 mg tablet 5 mg PO Q6H PRN pain #30 tabs 09/20/22 09/23/22 Rx tramadol 50 mg tablet 50 mg PO Q6H PRN pain, moderate 09/20/22 09/23/22 Rx #30 tabs Patient History Medical History Aortic root dilatation 4.1cm per 06/2021 Echo Chronic back pain Chronic hyponatremia Baseline sodium low 130s per chart review Dyslipidemia Borderline History of prostate cancer Dx 2019, s/p radiation therapy (completed 04/2020), no current issues Hypertension Lumbar radiculopathy Lumbar spinal stenosis 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 fusion procedure Neuropathy Feet Obesity Surgical History H/O elbow surgery Right elbow tendon repair (2006) H/O excision of mass Excision of Gluteal Cyst (10/2018) H/O retained foreign body fully removed 1994 Eyes, 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 History of colonoscopy History of discectomy Lumbar discectomy/laminectomy (2009, 2014) History of herniorrhaphy Right inguinal hernia (1989) History of kyphoplasty T5 kyphoplasty with biopsy (09/16/14): Grade view 1, Glidescope#4, ETT 7.5 at [facility] History of lumbar fusion L3-S1 decompression/fusion (06/15/20): Grade 2 view, Glidescope#4, ETT 8.0 at [facility] History of prostate biopsy History of tonsillectomy As child Family History Mother , age 81 heart disease FHx: abdominal aortic aneurysm Hypertension Father , lived with prostate cancer 35 years, age 99 old age Prostate cancer Brother Prostate cancer Sister Family hx colonic polyps PRE CANCEROUS POLYP Brother Prostate cancer age 65-had prostate removed, still alive and well Sister No problems noted. Sister Family hx colonic polyps Son No problems noted. Son No problems noted. Daughter No problems noted. Other No family history of adverse response to anesthesia Denies family history of Ovarian cancer Myocardial infarction Breast cancer Colorectal cancer Social History Smoking Status: Never smoker Second Hand Exposure: No; Do You Dip or Chew Tobacco: No (Hx); Hx Alcohol Use: Yes Alcohol type: beer Alcohol Intake Frequency: 2-3 x/Week Hx Substance Use: No Preferred Language: Mongolian Communication Ability: Effective Visual Impairment: No Limitations Hearing Ability: Normal Instrument Lens Inspector Required: No Beliefs That Will Affect Care: None marital status: Current Living Situation: Spouse and Family current occupational status: retired 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 [employer] Feels Safe at Home: Yes Diet: regular caffeine: Yes during the past year weight has: remained stable Dental Care, Regularly: No Physical Activity Frequency: 1-2 Times per Week Seatbelt Use: sometimes Sunscreen Use: No Assistive Devices: Walker Review of Systems Review of Systems: All systems reviewed & are unremarkable except as noted in HPI & below Physical Exam Physical Exam: General: patient resting comfortably, NAD, non-toxic in appearance, AA&O x 4 Skin: warm, dry, intact, no rashes or lesions HEENT: NC/AT, PERRL, EOMI, anicteric sclera, conjunctiva without injection, external ear normal to inspection and nontender, nares patent, moist mucus membranes, dentition intact, no oropharyngeal lesions, neck supple, trachea midline, no LAD, no thyromegaly, no JVD Heart: +S1/S2, regular, no m/r/g Lungs: equal air entry bilaterally, no rales/rhonchi/wheezes GABE drain in place with serosanguinous drainage Abd: +BS, soft, NT/ND, no masses/organomegaly/ascites Ext: warm, 2+ pulses in UE/LE bilaterally, no clubbing/cyanosis or edema Neuro: nonfocal, patient AA&O x 4, speech intact, no facial droop, moving all extremities on command with equal strength 5/5 Results & Data Vital Signs (Past 12 Hours) Vital Signs Temp Pulse Pulse Resp BP BP Pulse Ox 09/23/22 18:18 36.8 C 66 18 164/95 H 96 09/23/22 17:03 36.5 C 62 18 154/76 H 93 09/23/22 16:09 36.6 C 62 18 141/78 H 99 09/23/22 15:10 09/23/22 15:53 36.5 C 57 L 18 165/80 H 96 09/23/22 15:10 36.5 C 59 L 18 142/82 H 96 09/23/22 14:55 55 L 14 160/85 H 98 09/23/22 14:45 56 L 12 157/81 H 99 09/23/22 14:35 36.5 C 55 L 12 170/86 H 99 09/23/22 14:25 67 12 189/94 H 96 09/23/22 14:15 69 12 181/87 H 94 09/23/22 14:05 76 12 165/81 H 94 09/23/22 13:58 36 C L 88 16 183/90 H 97 09/23/22 12:39 36.5 C 61 20 180/91 H 98 09/23/22 11:58 62 18 160/89 H 100 09/23/22 10:54 62 18 121/74 93 09/23/22 09:53 58 L 18 145/84 H 97 09/23/22 08:05 56 L 20 147/85 H 97 O2 Del Method O2 Flow Rate 09/23/22 18:18 Room Air 09/23/22 17:03 Room Air 09/23/22 16:09 Room Air 09/23/22 15:10 Room Air 09/23/22 15:53 Room Air 09/23/22 15:10 Room Air 09/23/22 14:55 Nasal Cannula 2 09/23/22 14:45 Nasal Cannula 2 09/23/22 14:35 Nasal Cannula 2 09/23/22 14:25 Nasal Cannula 2 09/23/22 14:15 Room Air 09/23/22 14:05 Oxymask 6 09/23/22 13:58 Oxymask 6 09/23/22 12:39 Room Air 09/23/22 11:58 Room Air 09/23/22 10:54 09/23/22 09:53 Room Air 09/23/22 08:05 Room Air Laboratory Results Laboratory Results WBC 9.20 K/ul (4.8-10.8) 09/23/22 06:40 RBC 3.54 M/uL (4.70-6.10) L 09/23/22 06:40 Hgb 12.6 g/dl (14.0-18.0) L 09/23/22 06:40 Hct 35.9 % (42.0-52.0) L 09/23/22 06:40 MCV 101.4 fL (80.0-100.0) H 09/23/22 06:40 MCH 35.6 pg (25.0-34.0) H 09/23/22 06:40 MCHC 35.1 g/dL (32.0-36.0) 09/23/22 06:40 RDW Std Deviation 46.1 fL (36.4-46.3) 09/23/22 06:40 RDW Coeff of Jhon 12.3 % (11.5-14.5) 09/23/22 06:40 Plt Count 172 K/uL (130-400) 09/23/22 06:40 MPV 10.4 fL (9.4-12.4) 09/23/22 06:40 Immature Gran % (Auto) 0.5 % 09/23/22 06:40 Neut % (Auto) 75.4 % 09/23/22 06:40 Lymph % (Auto) 13.4 % 09/23/22 06:40 [place] % (Auto) 8.8 % 09/23/22 06:40 Eos % (Auto) 1.2 % 09/23/22 06:40 Baso % (Auto) 0.7 % 09/23/22 06:40 Neut # (Auto) 6.94 K/uL (1.40-6.50) H 09/23/22 06:40 Lymph # (Auto) 1.23 K/uL (1.2-3.4) 09/23/22 06:40 [place] # (Auto) 0.81 K/uL (0.11-0.59) H 09/23/22 06:40 Eos # (Auto) 0.11 K/uL (0-0.50) 09/23/22 06:40 Baso # (Auto) 0.06 K/uL (0-0.2) 09/23/22 06:40 Immature Gran # (Auto) 0.05 K/uL (0.01-0.20) 09/23/22 06:40 Sodium 137 mmol/L (136-145) 09/23/22 06:40 Potassium 4.0 mmol/L (3.5-5.1) 09/23/22 06:40 Chloride 101 mmol/L (98-107) 09/23/22 06:40 Carbon Dioxide 31 mmol/L (21-32) 09/23/22 06:40 Anion Gap 5 (3-11) 09/23/22 06:40 BUN 19 mg/dl (6-23) 09/23/22 06:40 Creatinine 0.98 mg/dl (0.6-1.4) 09/23/22 06:40 Est Cr Clr Drug Dosing 102.5 ml/min 09/23/22 06:40 Est GFR ( Amer) 94.1 ml/min 09/23/22 06:40 Est GFR (Non-Af Amer) 81.2 ml/min 09/23/22 06:40 BUN/Creatinine Ratio 19.4 (10-20) 09/23/22 06:40 Glucose 105 mg/dl (70-99(Fasting)) H 09/23/22 06:40 Calcium 9.5 mg/dl (8.6-10.3) 09/23/22 06:40 SARS-CoV-2, RNA, NAAT NEGATIVE (NEGATIVE) 09/23/22 09:[address] 09/23/22 07:31 CT lumbar spine wo con HISTORY: 62 years-old Male post op back pain, right leg radiation low back pain with recent surgery COMPARISON: MRI 05/27/2022 TECHNIQUE: Multiple axial CT images of the lumbar spine were obtained without the use of IV contrast. A dose lowering technique was used consistent with the principals of ALARA. FINDINGS: L1 vertebral body hemangioma. Posterior interbody gabrielle and screw fusion hardware is noted at L2-S1 with L2-L3, L4-L5 and L5-S1 discectomy. The postoperative changes at L2-L3 are new from prior MRI. There is no evidence of hardware fracture or loosening. Prior exam and is comminuted acute appearing fracture in involving the right L2 transverse process and pedicle without significant displacement. Additional fracturing is noted within the posterior endplate of L2, image 48 of the sagittal series. No significant retropulsion or vertebral body height loss. Artifact from the hardware limits the study. Bone graft material is noted in the lumbar spine with associated laminectomy changes. The muscles in the posterior operative bed. Suboptimal visualization of the central canal. Bilateral renal cysts redemonstrated. IMPRESSION: 1. Postoperative changes of the lumbar spine with interval laminectomy, posterior interbody gabrielle and screw fusion and discectomy at L2-L3. 2. Acute comminuted nondisplaced fractures of the right L2 transverse process, pedicle and posterior vertebral body endplate. No significant associated retropulsion, posttraumatic central canal or neural foraminal narrowing. ACT 112: Negative or not required by law. The above report was generated using voice recognition software. It may contain grammatical, syntax or spelling errors. Electronically signed by: Rudy Barbosa M.D. 09/23/2022 9:13 AM Chest X-Ray 09/23/22 09:33 XR chest 1V portable HISTORY: Back pain. pre-op clearance COMPARISON: Chest 09/05/2022. FINDINGS: The lungs are clear. The cardiac silhouette remains borderline enlarged. No pleural effusions. No pneumothorax. Thoracic spine kyphoplasty again noted. IMPRESSION: No acute process. ACT 112: Negative or not required by law. Electronically signed by: Emigdio Segundo M.D. 09/23/2022 10:13 AM PG Care Time/CCT Total # of Minutes Spent Total Time Spent with Patient: Total time spent is greater than 50% in coordination of care (as documented) at patient's floor/unit and/or counseling patient: Coding Level of Care Code 57578 IN/OBS CONSULT LVL 3,45M Diagnoses Lumbar stenosis M48.061 Hypertension I10
[2022-09-23] MEDS: DOCUSATE SODIUM/SENNA 50/8.6MG TAB PO SCH (20:13)
[2022-09-23] MEDS: carvediloL 6.25 MG TAB PO SCH (20:13)
[2022-09-23] MEDS: GABAPENTIN 300 MG CAP PO SCH (20:14)
[2022-09-23] MEDS: LOSARTAN POTASSIUM 50 MG TAB PO SCH (20:15)
[2022-09-23] MEDS: ceFAZolin 2000MG 2,000 MG/15 ML SYR IV SCH (21:07)
[2022-09-24] MEDS: ceFAZolin 2000MG 2,000 MG/15 ML SYR IV SCH (04:41)
[2022-09-24] MEDS: LACTATED RINGER'S 1,000 ML IV SCH (05:19)
[2022-09-24] MEDS: POLYETHYLENE (MIRALAX) 17 GM PACK PO SCH ×2 (05:58→11:19)
[2022-09-24 07:25] LABS: Basophils # (auto) 0.03 K/uL (0-0.2); Basophils % (auto) 0.3 %; Eosinophils # (auto) 0.06 K/uL (0-0.50); Eosinophils % (auto) 0.6 %; Hematocrit (blood only) 33.6 % (42.0-52.0); Hemoglobin 12.1 g/dl (14.0-18.0); Immature Granulocytes # (auto) 0.06 K/uL (0.01-0.20); Immature Granulocytes % (auto) 0.6 %; Lymphocytes # (auto) 0.91 K/uL (1.2-3.4); Lymphocytes % (auto) 8.6 %; Mean Corpuscular Hemoglobin 35.6 pg (25.0-34.0); Mean Corpuscular Volume 98.8 fL (80.0-100.0); Mean Platelet Volume 10.3 fL (9.4-12.4); Monocytes # (auto) 0.55 K/uL (0.11-0.59); Monocytes % (auto) 5.2 %; Neutrophils # (auto) 9.02 K/uL (1.40-6.50); Neutrophils % (auto) 84.7 %; Platelet Count 185 K/uL (130-400); RDW Coefficient of Variation 12.1 % (11.5-14.5); RDW Standard Deviation 44.3 fL (36.4-46.3); White Blood Count 10.63 K/ul (4.8-10.8)
--- NOTE | 2022-09-24 07:54 | Hospitalist Progress Note ---
Date of Service September 24, 2022 Assessment & Plan (1) Lumbar stenosis: Plan: 62yo male with lumbar spinal stenosis and neurogenic claudication s/p L2-L3 decompression and fusion with hardware placement o 09/19/22 presents with worsening pain and radicular symptoms. Patient returned to the OR 09/[address] Dunbar for debridement and washout, drainage of seroma. Patient presently with well controlled pain. WBC wnl, afebrile Pain control/bowel regimen/PT/OT per primary service DVT proph: SCD/clinton hose, chemo contraindicated FOr pain control: primary adding decadron IV -- monitor response -Primary did also add gabapentin 300mg TID but patient already on 300mg AC/HS and 600mg dose at 1400. Message Dr Dunbar for alternative medication as would not increase from what already getting Of note, MCV borderline and will check B12/folate w/ neuropathy type pain Continued inpatient stay, monitor labs on repeat (2) Hypertension: Plan: Blood pressure mildly elevated, likely component of pain but improving Pain control as above Continues on home carvedilol, HCTZ, losartan -- kidney function stable on AM labs Monitor Macrocytosis -- MCV prior >100, borderline on current labs. Will check B12/aminata te w/ AM labs Plan continued inpatient stay, pain control Thank you for allowing hospitalist service to participate in the care of Mr Valente. Hospitalist service will follow along for now. Please call with any questions/concerns. Admission and Anticipated Discharge Date Admission Date: September 23, 2022 Supervising Physician Co-Signing Physician Notes The patient was not seen by me. The chart was reviewed. Case discussed with ZE Harden. Agree with assessment and plan Subjective Patient evaluated this morning. Feeling better than when he came in but stated he just saw Dr Dunbar and having some increased pain/radiation down his right leg. Strength testing intact, wanting to ambulate but doesn't think he can due to pain. No fever/chills, chest pain, shortness of breath, abdominal pain nausea or vomiting. Eating/drinking without issues, states moving his bowels. He notes Dr Dunbar going to add something for pain -- discussed possible need for steroids but will discuss w/ Dr Dunbar prior and come up w/ good regimen for pain control. Questions/concerns addressed at this time. Physical Exam Physical Exam: General: WD/WN obese male sitting up in recliner chair, NAD but mildly uncomfortable appearing HEENT: head normocephalic, atraumatic, mmm, trachea midline Resp: CTA, no w/c/r, on room air CV: RRR, no significant m/r/g, no pitting edema/calf tenderness GI: +BS, nontender : no alvarado MSK/Neuro: dressing c/d/i, GABE w/ serosanguineous drainage, strength intact b/l LE, sensation intact, increased pain w/ flexion on the right Skin: warm, dry Psych: AOx3, cooperative with exam Results & Data Results & Data Vital Signs (Past 12 Hours) Vital Signs Temp Pulse Resp BP BP Pulse Ox O2 Del Method 09/24/22 04:29 36.7 C 67 16 165/94 H 98 Room Air 09/24/22 00:08 36.4 C L 66 16 165/84 H 98 Room Air 09/23/22 20:07 36.8 C 72 16 149/78 H 95 Room Air Laboratory Results 09/24/22 09/24/22 09/24/22 Range/Units 08:51 06:48 06:48 WBC 10.63 (4.8-10.8) K/ul RBC 3.40 L (4.70-6.10) M/uL Hgb 12.1 L (14.0-18.0) g/dl Hct 33.6 L (42.0-52.0) % MCV 98.8 (80.0-100.0) fL MCH 35.6 H (25.0-34.0) pg MCHC 36.0 (32.0-36.0) g/dL RDW Std Deviation 44.3 (36.4-46.3) fL RDW Coeff of Jhon 12.1 (11.5-14.5) % Plt Count 185 (130-400) K/uL MPV 10.3 (9.4-12.4) fL Immature Gran % (Auto) 0.6 % Neut % (Auto) 84.7 % Lymph % (Auto) 8.6 % [place] % (Auto) 5.2 % Eos % (Auto) 0.6 % Baso % (Auto) 0.3 % Neut # (Auto) 9.02 H (1.40-6.50) K/uL Lymph # (Auto) 0.91 L (1.2-3.4) K/uL [place] # (Auto) 0.55 (0.11-0.59) K/uL Eos # (Auto) 0.06 (0-0.50) K/uL Baso # (Auto) 0.03 (0-0.2) K/uL Immature Gran # (Auto) 0.06 (0.01-0.20) K/uL Sodium 136 (136-145) mmol/L Potassium Pending TNP Chloride 100 (98-107) mmol/L Carbon Dioxide 31 (21-32) mmol/L Anion Gap 5 (3-11) BUN 17 (6-23) mg/dl Creatinine 1.03 (0.6-1.4) mg/dl Est Cr Clr Drug Dosing 97.5 ml/min Est GFR ( Amer) 88.6 ml/min Est GFR (Non-Af Amer) 76.4 ml/min BUN/Creatinine Ratio 16.5 (10-20) Glucose 144 H (70-99(Fasting)) mg/dl Calcium 9.5 (8.6-10.3) mg/dl SARS-CoV-2, RNA, NAAT (NEGATIVE) 09/23/22 Range/Units 09:49 WBC (4.8-10.8) K/ul RBC (4.70-6.10) M/uL Hgb (14.0-18.0) g/dl Hct (42.0-52.0) % MCV (80.0-100.0) fL MCH (25.0-34.0) pg MCHC (32.0-36.0) g/dL RDW Std Deviation (36.4-46.3) fL RDW Coeff of Jhon (11.5-14.5) % Plt Count (130-400) K/uL MPV (9.4-12.4) fL Immature Gran % (Auto) % Neut % (Auto) % Lymph % (Auto) % [place] % (Auto) % Eos % (Auto) % Baso % (Auto) % Neut # (Auto) (1.40-6.50) K/uL Lymph # (Auto) (1.2-3.4) K/uL [place] # (Auto) (0.11-0.59) K/uL Eos # (Auto) (0-0.50) K/uL Baso # (Auto) (0-0.2) K/uL Immature Gran # (Auto) (0.01-0.20) K/uL Sodium (136-145) mmol/L Potassium Chloride (98-107) mmol/L Carbon Dioxide (21-32) mmol/L Anion Gap (3-11) BUN (6-23) mg/dl Creatinine (0.6-1.4) mg/dl Est Cr Clr Drug Dosing ml/min Est GFR ( Amer) ml/min Est GFR (Non-Af Amer) ml/min BUN/Creatinine Ratio (10-20) Glucose (70-99(Fasting)) mg/dl Calcium (8.6-10.3) mg/dl SARS-CoV-2, RNA, NAAT NEGATIVE (NEGATIVE) Diagnostic Findings Lumbar Spine CT 09/23/22 07:31 CT lumbar spine wo con HISTORY: 62 years-old Male post op back pain, right leg radiation low back pain with recent surgery COMPARISON: MRI 05/27/2022 TECHNIQUE: Multiple axial CT images of the lumbar spine were obtained without the use of IV contrast. A dose lowering technique was used consistent with the principals of ALARA. FINDINGS: L1 vertebral body hemangioma. Posterior interbody gabrielle and screw fusion hardware is noted at L2-S1 with L2-L3, L4-L5 and L5-S1 discectomy. The postoperative changes at L2-L3 are new from prior MRI. There is no evidence of hardware fracture or loosening. Prior exam and is comminuted acute appearing fracture in involving the right L2 transverse process and pedicle without significant displacement. Additional fracturing is noted within the posterior endplate of L2, image 48 of the sagittal series. No significant retropulsion or vertebral body height loss. Artifact from the hardware limits the study. Bone graft material is noted in the lumbar spine with associated laminectomy changes. The muscles in the posterior operative bed. Suboptimal visualization of the central canal. Bilateral renal cysts redemonstrated. IMPRESSION: 1. Postoperative changes of the lumbar spine with interval laminectomy, posterior interbody gabrielle and screw fusion and discectomy at L2-L3. 2. Acute comminuted nondisplaced fractures of the right L2 transverse process, pedicle and posterior vertebral body endplate. No significant associated retropulsion, posttraumatic central canal or neural foraminal narrowing. ACT 112: Negative or not required by law. The above report was generated using voice recognition software. It may contain grammatical, syntax or spelling errors. Electronically signed by: Rudy Barbosa M.D. 09/23/2022 9:13 AM Chest X-Ray 09/23/22 09:33 XR chest 1V portable HISTORY: Back pain. pre-op clearance COMPARISON: Chest 09/05/2022. FINDINGS: The lungs are clear. The cardiac silhouette remains borderline enlarged. No pleural effusions. No pneumothorax. Thoracic spine kyphoplasty again noted. IMPRESSION: No acute process. ACT 112: Negative or not required by law. Electronically signed by: Emigdio Segundo M.D. 09/23/2022 10:13 AM PG Care Time/CCT Total # of Minutes Spent Total Time Spent with Patient: Total time spent is greater than 50% in coordination of care (as documented) at patient's floor/unit and/or counseling patient: Coding Level of Care Code 78101 SUB INP/OBS CARE 2/35MIN Diagnoses Lumbar stenosis M48.061 Hypertension I10
[2022-09-24] MEDS: carvediloL 6.25 MG TAB PO SCH ×2 (08:17→21:20)
[2022-09-24] MEDS: LOSARTAN POTASSIUM 50 MG TAB PO SCH ×2 (08:17→21:21)
[2022-09-24] MEDS: ASPIRIN 81 MG ECTAB PO SCH (08:17)
[2022-09-24] MEDS: hydroCHLOROthiazide 25 MG TAB PO SCH (08:18)
[2022-09-24] MEDS: GABAPENTIN 300 MG CAP PO SCH ×2 (08:18→21:22)
--- NOTE | 2022-09-24 08:21 | Orthopedic Progress Note ---
Date of Service September 24, 2022 Assessment & Plan (1) Post surgical complication: Plan: At this time we will initiate physical therapy. I will add Neurontin and Decadron to his pain regimen to help with his neurogenic discomfort. We will continue therapy throughout the weekend and hopefully discharge home in the next few days. Admission and Anticipated Discharge Date Admission Date: September 23, 2022 Subjective Patient's complaining of back pain and continued right anterior thigh pain. It is somewhat improved. He is able to ambulate. Physical Exam Physical Exam: On exam is in the chair at the bedside is good strength testing. Drain is funct ioning. Results & Data Vital Signs (Past 12 Hours) Vital Signs Temp Pulse Resp BP Pulse Ox O2 Del Method 09/24/22 07:55 36.7 C 72 18 160/82 H 97 Room Air 09/24/22 04:29 36.7 C 67 16 165/94 H 98 Room Air 09/24/22 00:08 36.4 C L 66 16 165/84 H 98 Room Air (1) Post surgical complication Procedure type: musculoskeletal Surgical complication system/body Area: musculoskeletal system Surgical complication type: unspecified Qualified Code(s): M96.89 - Other intraoperative and postprocedural complications and disorders of the musculoskeletal system
[2022-09-24 08:32] LABS: Anion Gap 5 (3-11); BUN Creatinine Ratio 16.5 (10-20); Blood Urea Nitrogen 17 mg/dl (6-23); Calcium 9.5 mg/dl (8.6-10.3); Carbon Dioxide 31 mmol/L (21-32); Chloride 100 mmol/L (98-107); Creatinine Clr Calc Pharmacy 97.5 ml/min; Est GFR (African American) 88.6 ml/min; Est GFR (Non-African American) 76.4 ml/min; Glucose 144 mg/dl (70-99(Fasting)); Sodium 136 mmol/L (136-145)
[2022-09-24] MEDS ORDERED: GABAPENTIN 300 MG CAP PO SCH (09:00)
[2022-09-24] MEDS: oxyCODONE HCL IR 5 MG TAB (IMMEDIATE RELEASE) PO PRN ×2 (09:25→17:00)
[2022-09-24] MEDS: dexAMETHasone 8 MG in SYRINGE 0 ML IV SCH ×2 (09:41→21:23)
[2022-09-24] MEDS: HYDROmorphone INJ 1 MG/ML SYRINGE IV PRN ×2 (11:19→21:25)
[2022-09-24] MEDS: GABAPENTIN 600 MG TAB PO SCH (13:35)
[2022-09-24] MEDS: DOCUSATE SODIUM/SENNA 50/8.6MG TAB PO SCH (21:22)
[2022-09-25] MEDS: HYDROmorphone INJ 1 MG/ML SYRINGE IV PRN ×2 (03:59→18:39)
[2022-09-25] MEDS: oxyCODONE HCL IR 5 MG TAB (IMMEDIATE RELEASE) PO PRN ×4 (06:21→21:10)
[2022-09-25] MEDS: dexAMETHasone 8 MG in SYRINGE 0 ML IV SCH (07:24)
[2022-09-25] MEDS: LOSARTAN POTASSIUM 50 MG TAB PO SCH ×2 (07:25→21:12)
[2022-09-25] MEDS: ASPIRIN 81 MG ECTAB PO SCH (07:25)
[2022-09-25] MEDS: GABAPENTIN 300 MG CAP PO SCH ×2 (07:25→21:14)
[2022-09-25] MEDS: carvediloL 6.25 MG TAB PO SCH ×2 (07:25→21:03)
[2022-09-25] MEDS: hydroCHLOROthiazide 25 MG TAB PO SCH (07:25)
[2022-09-25] MEDS: POLYETHYLENE (MIRALAX) 17 GM PACK PO SCH (07:27)
--- NOTE | 2022-09-25 08:06 | Hospitalist Progress Note ---
Date of Service September 25, 2022 Assessment & Plan (1) Lumbar stenosis: Plan: 62yo male with lumbar spinal stenosis and neurogenic claudication s/p L2-L3 decompression and fusion with hardware placement o 09/19/22 presents with worsening pain and radicular symptoms. Patient returned to the OR 09/[address] Dunbar for debridement and washout, drainage of seroma. POD#2 s/p irrigation and debridement with Dr Dunbar on 09/23. EBL 10cc WBC elevation likely 2nd to steroids started yesterday for pain control, aferile Pain control/bowel regimen prn Hgb improved on repeat DVT proph: SCD/clinton hose B12 checked for MCV >100 --> B12 LOW 179 --> IM replacement ordered while i npatient and rec to continue PO at discharge. Ordered IM x 3 days Suspect also contributing to neuropathy symptoms Does have some R troch pain -- should improve w/ steroids as well. ?bursitis -- defer to ortho continued inpatient stay, monitoring GABE output/pain control (2) Hypertension: Plan: Blood pressure mildly elevated, likely component of pain but improving/stable Pain control as above Continues on home carvedilol, HCTZ, losartan monitor Plan continued inpatient stay, pain control Thank you for allowing hospitalist service to participate in the care of Mr Valente. Hospitalist service will follow along in AM to ensure no issues overnight but likely can sign off in AM if no issues. Please call with any questions/concerns. Admission and Anticipated Discharge Date Admission Date: September 23, 2022 Supervising Physician Co-Signing Physician Notes The patient was not seen by me. The chart was reviewed. Case discussed with ZE Harden. Agree with assessment and plan Subjective evaluated this morning, appearing more comfortable than yesterday. still having pain but medications ordered and effective, pain improving compared to yesterday back on bowel regimen to prevent constipation wanting to take a walk in the halls. no fever/chills, chest pain, shortness of breath, abdominal pain or nausea at this time. questions/concerns addressed. Physical Exam Physical Exam: General: WD/WN obese male sitting up in recliner chair, NAD, appears improved HEENT: head normocephalic, atraumatic, mmm, trachea midline Resp: CTA, no w/c/r, on room air CV: RRR, no significant m/r/g, no pitting edema/calf tenderness GI: +BS, nontender, slightly more distended : no alvarado MSK/Neuro: dressing c/d/i, GABE w/ serosanguineous drainage, strength intact b/l LE, sensation intact, increased pain w/ flexion on the right tenderness to palpation RIGHT trochanter, no bony stepoff/deformity Skin: warm, dry Psych: AOx3, cooperative with exam Results & Data Results & Data Vital Signs (Past 12 Hours) Vital Signs Temp Pulse Resp BP Pulse Ox O2 Del Method 09/25/22 07:18 36.6 C 70 18 168/94 H 97 Room Air 09/24/22 20:21 36.7 C 74 18 141/76 H 96 Room Air Laboratory Results 09/24/22 09/24/22 Range/Units 08:51 06:48 Sodium 136 (136-145) mmol/L Potassium 4.0 TNP Chloride 100 (98-107) mmol/L Carbon Dioxide 31 (21-32) mmol/L Anion Gap 5 (3-11) BUN 17 (6-23) mg/dl Creatinine 1.03 (0.6-1.4) mg/dl Est Cr Clr Drug Dosing 97.5 ml/min Est GFR ( Amer) 88.6 ml/min Est GFR (Non-Af Amer) 76.4 ml/min BUN/Creatinine Ratio 16.5 (10-20) Glucose 144 H (70-99(Fasting)) mg/dl Calcium 9.5 (8.6-10.3) mg/dl PG Care Time/CCT Total # of Minutes Spent Total Time Spent with Patient: Total time spent is greater than 50% in coordination of care (as documented) at patient's floor/unit and/or counseling patient: Coding Level of Care Code 68569 SUB INP/OBS CARE 2/35MIN Diagnoses Lumbar stenosis M48.061 Hypertension I10
[2022-09-25 08:33] LABS: Hematocrit (blood only) 37.2 % (42.0-52.0); Hemoglobin 13.1 g/dl (14.0-18.0); Mean Corpuscular Hemoglobin 35.2 pg (25.0-34.0); Mean Corpuscular Hgb Conc 35.2 g/dL (32.0-36.0); Mean Platelet Volume 10.6 fL (9.4-12.4); Platelet Count 212 K/uL (130-400); RDW Coefficient of Variation 12.4 % (11.5-14.5); Red Blood Count 3.72 M/uL (4.70-6.10); White Blood Count 13.37 K/ul (4.8-10.8)
[2022-09-25 08:49] LABS: BUN Creatinine Ratio 22.1 (10-20); Calcium 10.4 mg/dl (8.6-10.3); Creatinine Clr Calc Pharmacy 105.8 ml/min; Est GFR (African American) 97.7 ml/min; Est GFR (Non-African American) 84.3 ml/min; Magnesium 2.1 mg/dl (1.7-2.4); Potassium 4.7 mmol/L (3.5-5.1)
[2022-09-25] MEDS: HYDROmorphone INJ 0.5 MG/0.5 ML SYR IV PRN ×2 (08:58→13:20)
--- NOTE | 2022-09-25 09:41 | Orthopedic Progress Note ---
Date of Service September 25, 2022 Assessment & Plan (1) Lumbar stenosis: Plan: This time continue encourage physical therapy monitor his GABE output. He seems to have a component of neurogenic pain hopefully improve with healing. Admission and Anticipated Discharge Date Admission Date: September 23, 2022 Subjective Patient's back pain is improving. He still having intermittent right anterior thigh pain. Physical Exam Physical Exam: Patient is in bed at this time. Is comfortable at this time. Excellent strength testing. Negative logroll. There are some tenderness palpation of the right trochanteric region. Results & Data Vital Signs (Past 12 Hours) Vital Signs Temp Pulse Resp BP Pulse Ox O2 Del Method 09/25/22 07:18 36.6 C 70 18 168/94 H 97 Room Air
[2022-09-25] MEDS: CYANOCOBALAMIN 1000 MCG/ML VIAL IM SCH (11:07)
[2022-09-25] MEDS: GABAPENTIN 600 MG TAB PO SCH (13:18)
--- NOTE | 2022-09-25 13:24 | Communication Note ---
Date of Service: September 25, [address] Dunbar and hospitalist service will sign off at this time. Primary to call with any questions/concerns.
[2022-09-25] MEDS ORDERED: KETOROLAC 30 MG/ML VIAL IV ONE (16:58)
[2022-09-25] MEDS: DOCUSATE SODIUM/SENNA 50/8.6MG TAB PO SCH (21:14)
[2022-09-26] MEDS: oxyCODONE HCL IR 5 MG TAB (IMMEDIATE RELEASE) PO PRN (03:28)
[2022-09-26] MEDS: HYDROmorphone INJ 1 MG/ML SYRINGE IV PRN ×4 (08:13→19:48)
[2022-09-26] MEDS: ASPIRIN 81 MG ECTAB PO SCH (09:02)
[2022-09-26] MEDS: CYANOCOBALAMIN 1000 MCG/ML VIAL IM SCH (09:03)
[2022-09-26] MEDS: GABAPENTIN 300 MG CAP PO SCH ×2 (09:04→21:22)
[2022-09-26] MEDS: carvediloL 6.25 MG TAB PO SCH ×2 (09:04→21:24)
[2022-09-26] MEDS: hydroCHLOROthiazide 25 MG TAB PO SCH (09:05)
[2022-09-26] MEDS: LOSARTAN POTASSIUM 50 MG TAB PO SCH ×2 (09:05→21:22)
[2022-09-26] MEDS: POLYETHYLENE (MIRALAX) 17 GM PACK PO SCH (09:06)
--- NOTE | 2022-09-26 13:16 | Orthopedic Progress Note ---
Date of Service September 26, 2022 Assessment & Plan (1) Trochanteric bursitis of right hip: Plan: At this time his symptoms may be acute trochanteric bursitis. Certainly on clinical exam this is his most tender area of palpation and does reproduce his symptoms. We will initiate a course of physical therapy with attention to this region. Admission and Anticipated Discharge Date Admission Date: September 23, 2022 Subjective Back pain controlled struggling with some more right lateral thigh pain. The pain does not extend below the knee. He is comfortable lying supine. Is worse with standing sitting and standing. Left lower extremities asymptomatic. Physical Exam Physical Exam: On exam he has significant tenderness palpation of the right greater trochanter and IT band. There is no anterior thigh discomfort or posterior thigh issues. He has excellent strength testing. Results & Data Vital Signs (Past 12 Hours) Vital Signs Temp Pulse Resp BP Pulse Ox O2 Del Method 09/26/22 07:14 36.5 C 61 18 149/84 H 99 Room Air
[2022-09-26] MEDS: GABAPENTIN 600 MG TAB PO SCH (13:55)
[2022-09-26] MEDS: traMADol HCL 50 MG TABLET PO PRN (21:22)
[2022-09-26] MEDS: DOCUSATE SODIUM/SENNA 50/8.6MG TAB PO SCH (21:22)
[2022-09-27] MEDS: HYDROmorphone INJ 1 MG/ML SYRINGE IV PRN ×5 (00:20→21:31)
[2022-09-27] MEDS: oxyCODONE HCL IR 5 MG TAB (IMMEDIATE RELEASE) PO PRN ×3 (01:33→20:35)
[2022-09-27] MEDS: traMADol HCL 50 MG TABLET PO PRN ×2 (06:07→14:51)
[2022-09-27] MEDS: hydroCHLOROthiazide 25 MG TAB PO SCH (08:34)
[2022-09-27] MEDS: POLYETHYLENE (MIRALAX) 17 GM PACK PO SCH (08:35)
[2022-09-27] MEDS: CYANOCOBALAMIN 1000 MCG/ML VIAL IM SCH (08:36)
[2022-09-27] MEDS: LOSARTAN POTASSIUM 50 MG TAB PO SCH ×2 (08:36→20:19)
[2022-09-27] MEDS: carvediloL 6.25 MG TAB PO SCH ×2 (08:36→20:18)
[2022-09-27] MEDS: ASPIRIN 81 MG ECTAB PO SCH (08:36)
[2022-09-27] MEDS: GABAPENTIN 300 MG CAP PO SCH ×2 (08:37→20:18)
--- NOTE | 2022-09-27 10:41 | Orthopedic Progress Note ---
Date of Service September 27, 2022 Assessment & Plan (1) Trochanteric bursitis of right hip: Plan: At this time we will continue physical therapy today discontinue his drain and change dressing. Plan for discharge home tomorrow. Admission and Anticipated Discharge Date Admission Date: September 23, 2022 Subjective Back pain is controlled. Leg symptoms still limiting but more tolerable. Physical Exam Physical Exam: Patient is in the chair at the bedside. Is comfortable. Discussing the testing. Results & Data Vital Signs (Past 12 Hours) Vital Signs Temp Pulse Resp BP Pulse Ox O2 Del Method 09/27/22 07:15 Room Air 09/27/22 07:34 36.6 C 61 16 156/84 H 97 Room Air
[2022-09-27] MEDS: GABAPENTIN 600 MG TAB PO SCH (13:19)
[2022-09-27] MEDS: DOCUSATE SODIUM/SENNA 50/8.6MG TAB PO SCH (20:19)
[2022-09-28] MEDS: HYDROmorphone INJ 1 MG/ML SYRINGE IV PRN ×2 (02:00→07:34)
[2022-09-28] MEDS: LOSARTAN POTASSIUM 50 MG TAB PO SCH (07:36)
[2022-09-28] MEDS: ASPIRIN 81 MG ECTAB PO SCH (07:36)
[2022-09-28] MEDS: carvediloL 6.25 MG TAB PO SCH (07:37)
[2022-09-28] MEDS: GABAPENTIN 300 MG CAP PO SCH (07:37)
[2022-09-28] MEDS: hydroCHLOROthiazide 25 MG TAB PO SCH (07:38)
[2022-09-28] MEDS: CYANOCOBALAMIN 1000 MCG/ML VIAL IM SCH (07:38)
[2022-09-28] MEDS: POLYETHYLENE (MIRALAX) 17 GM PACK PO SCH (07:39)
[2022-09-28 07:43] VITALS: PULSE 63; TEMP 97.7; O2SAT 99
[2022-09-28 10:15] VITALS: BP 149/78
== END 2022-09-28 11:24 | disposition home or self-care (01) | DRG 921 ==
LOC: ED 06:19 → 3W 13:38

== ENCOUNTER 2022-10-06 20:48 | Inpatient (IN) ==
--- NOTE | 2022-10-06 23:15 | Emergency Department Note ---
History of Present Illness General Chief complaint: Back Injury/Pain Stated complaint: BACK PAIN, RECENT SURGERY Time Seen by Provider: 10/06/22 21:23 History of Present Illness Maximum Pain Intensity: 7 This 62-year-old male who recently had back surgery by Dr. Dunbar presents to the ER complaining of low back pain after he fell today. Patient denies loss of bowel or bladder control, saddle anesthesia, fever, chills, leg weakness. Patient states he was in too much pain to get up and not so prompted him to come to the ER. Home Medications Medication Instructions Recorded Confirmed Type aspirin 81 mg tablet,delayed 81 mg PO QAM 09/28/18 10/06/22 History release carvedilol 6.25 mg tablet 6.25 mg PO BID 09/28/18 10/06/22 History losartan 50 mg tablet 50 mg PO BID 09/28/18 10/06/22 History hydrochlorothiazide 25 mg tablet 12.5 mg PO QAM 08/24/22 10/06/22 History cyanocobalamin (vitamin B-12) 1,000 mcg PO DAILY #30 caps 09/25/22 10/06/22 Rx 1,000 mcg capsule oxycodone 5 mg tablet 5 mg PO Q6H PRN pain #30 tabs 09/27/22 10/06/22 Rx gabapentin 300 mg capsule 300 mg PO BID 09/30/22 10/06/22 History gabapentin 300 mg capsule 600 mg PO QDL 09/30/22 10/06/22 History oxycodone 10 mg tablet 10 mg PO Q6 PRN Pain 10/06/22 10/06/22 History tramadol 50 mg tablet 50 mg PO Q6 PRN Moderate Pain 10/06/22 10/06/22 History (Scale Score 5-6) Allergies Allergy/AdvReac Type Severity Reaction Status Date / Time No Known Allergies Allergy Verified 10/06/22 22:47 Past Med/Surg History Medical History Aortic root dilatation 4.1cm per 06/2021 Echo Chronic back pain Chronic hyponatremia Baseline sodium low 130s per chart review Dyslipidemia Borderline History of prostate cancer Dx 2019, s/p radiation therapy (completed 04/2020), no current issues Hypertension Lumbar radiculopathy Lumbar spinal stenosis 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 fusion procedure Neuropathy Feet Obesity Surgical History H/O elbow surgery Right elbow tendon repair (2006) H/O excision of mass Excision of Gluteal Cyst (10/2018) H/O retained foreign body fully removed 1994 Eyes, 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 History of colonoscopy History of discectomy Lumbar discectomy/laminectomy (2009, 2014) History of herniorrhaphy Right inguinal hernia (1989) History of kyphoplasty T5 kyphoplasty with biopsy (09/16/14): Grade view 1, Glidescope#4, ETT 7.5 at [facility] History of lumbar fusion L3-S1 decompression/fusion (06/15/20): Grade 2 view, Glidescope#4, ETT 8.0 at [facility] History of prostate biopsy History of tonsillectomy As child Family History Mother , age 81 heart disease FHx: abdominal aortic aneurysm Hypertension Father , lived with prostate cancer 35 years, age 99 old age Prostate cancer Brother Prostate cancer Sister Family hx colonic polyps PRE CANCEROUS POLYP Brother Prostate cancer age 65-had prostate removed, still alive and well Sister No problems noted. Sister Family hx colonic polyps Son No problems noted. Son No problems noted. Daughter No problems noted. 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 Beliefs That Will Affect Care: None marital status: Current Living Situation: Spouse and Family current occupational status: retired 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 [employer] Feels Safe at Home: Yes Diet: regular caffeine: Yes during the past year weight has: remained stable Dental Care, Regularly: No Physical Activity Frequency: 1-2 Times per Week Seatbelt Use: sometimes Sunscreen Use: No Assistive Devices: Walker Review of Systems A total of 10 systems reviewed and were otherwise negative Physical Exam Vital Signs Vital Signs - 24 hr 10/06/22 20:56 10/06/22 20:56 10/06/22 20:59 Temperature 36.6 C 36.6 C Temperature Source Oral Oral Pulse Rate 80 74 Pulse Rate [Right] Respiratory Rate 15 Respiratory Effort / Characteristics Respiratory Depth Blood Pressure 123/72 Blood Pressure [Right Arm] Blood Pressure Mean 89 Blood Pressure Mean [Right Arm] Blood Pressure Position [Right Arm] Pulse Oximetry 92 Oxygen Delivery Method Room Air Sepsis Recent Fever Within 48 Hours No Sepsis New/Unexplained Change in Mental Status N/A Sepsis Action Taken by Nursing No Action Required 10/06/22 22:33 10/06/22 23:35 Temperature Temperature Source Pulse Rate Pulse Rate [Right] 84 Respiratory Rate 18 16 Respiratory Effort / Characteristics Non-Labored Spontaneous Respiratory Depth Normal Blood Pressure Blood Pressure [Right Arm] 110/70 Blood Pressure Mean Blood Pressure Mean [Right Arm] 83 Blood Pressure Position [Right Arm] Lying Pulse Oximetry 97 92 Oxygen Delivery Method Room Air Sepsis Recent Fever Within 48 Hours Sepsis New/Unexplained Change in Mental Status Sepsis Action Taken by Nursing VITALS: Vitals are noted on the nurse's note and reviewed by myself. Vital signs stable. GENERAL: Pleasant gentleman, in no acute distress, nondiaphoretic, well- developed well-nourished. SKIN: The skin was without rashes, erythema, edema, or bruising. There is no tenting of the skin. Capillary reflex less than 2 seconds. HEAD: Normocephalic atraumatic. EARS: External auditory canals clear, EYES: Pupils equal round and reactive to light and accommodation. Conjunctivae without injection, sclerae without icterus. Extraocular movements intact. NOSE: Patent, turbinates without inflammation or discharge. MOUTH: Mucous membranes moist. Pharynx without erythema or exudate. Uvula midline. Airway patent. Tongue does not deviate. NECK: Supple without nuchal rigidity. No lymphadenopathy. No thyromegaly. Cervical spine is nontender. No JVD. HEART: Regular rate and rhythm LUNGS: Clear to auscultation bilaterally without wheezes, rales or rhonchi. No retractions or accessory muscle use. ABDOMEN: Positive bowel sounds x 4. Normal tympanic percussion. Soft, nontender, without masses or organomegaly. Ackerman sign negative. No guarding or rebound tenderness. No CVA tenderness MUSCULOSKELETAL: No muscle atrophy, erythema, or edema noted. No thoracic tenderness. Lumbar tenderness present. No step-offs. Incisional site intact. Patient can lift both legs. He can plantarflex and dorsiflex. NEURO: Patient was alert and oriented to person place and time. Normal sensation to light and sharp touch. No focal neurological deficits. Course Administered Medications Discontinued Medications Morphine Sulfate (Morphine Sulfate 4 Mg/Ml 1 Ml Carp\Vial) 4 mg IV NOW STA Stop: 10/06/22 23:26 Last Admin: 10/06/22 23:30 Dose: 4 mg Documented By: [facility] Medical Decision Making Medical Records Attestation: I reviewed the patient's medical records. Home Medications Current Medication List: was personally reviewed by me Laboratory Data Attestation: I reviewed the patient's lab results. 10/06/22 21:00 10/06/22 21:00 Lab Results 10/06/22 10/06/22 Range/Units 21:00 21:00 WBC 9.12 (4.8-10.8) K/ul RBC 3.47 L (4.70-6.10) M/uL Hgb 12.1 L (14.0-18.0) g/dl Hct 34.6 L (42.0-52.0) % MCV 99.7 (80.0-100.0) fL MCH 34.9 H (25.0-34.0) pg MCHC 35.0 (32.0-36.0) g/dL RDW Std Deviation 44.6 (36.4-46.3) fL RDW Coeff of Jhon 12.3 (11.5-14.5) % Plt Count 188 (130-400) K/uL MPV 10.8 (9.4-12.4) fL Immature Gran % (Auto) 0.5 % Neut % (Auto) 70.0 % Lymph % (Auto) 14.7 % [place] % (Auto) 8.9 % Eos % (Auto) 5.4 % Baso % (Auto) 0.5 % Neut # (Auto) 6.38 (1.40-6.50) K/uL Lymph # (Auto) 1.34 (1.2-3.4) K/uL [place] # (Auto) 0.81 H (0.11-0.59) K/uL Eos # (Auto) 0.49 (0-0.50) K/uL Baso # (Auto) 0.05 (0-0.2) K/uL Immature Gran # (Auto) 0.05 (0.01-0.20) K/uL Sodium 130 L (136-145) mmol/L Potassium 3.8 (3.5-5.1) mmol/L Chloride 96 L (98-107) mmol/L Carbon Dioxide 23 (21-32) mmol/L Anion Gap 11 (3-11) BUN 17 (6-23) mg/dl Creatinine 0.90 (0.6-1.4) mg/dl Est Cr Clr Drug Dosing Not Reportable Est GFR ( Amer) 104.2 ml/min Est GFR (Non-Af Amer) 89.9 ml/min BUN/Creatinine Ratio 18.9 (10-20) Glucose 98 (70-99(Fasting)) mg/dl Calcium 8.6 (8.6-10.3) mg/dl Total Bilirubin 0.7 (0.2-1.0) mg/dl AST 13 (13-39) U/L ALT 15 (7-52) U/L Alkaline Phosphatase 93 (34-104) U/L Total Protein 6.1 (6.0-8.3) gm/dl Albumin 3.6 (3.4-5.0) gm/dl Globulin 2.5 (2.5-4.0) gm/dl Albumin/Globulin Ratio 1.4 (0.9-2) Imaging Data Attestation: I personally reviewed and interpreted this imaging study as follows: Radiologist's Impression: Lumbar Spine CT 10/06/22 21:35 Exam(s): CT L SPINE EXAM: CT Lumbar Spine Without Intravenous Contrast CLINICAL HISTORY: Reason for exam: fall, recent back OR, pain. TECHNIQUE: Axial computed tomography images of the lumbar spine without intravenous contrast. CTDI is 39.4 mGy and DLP is 1350.71 mGy-cm. Automated exposure control was utilized for the study. A dose lowering technique was utilized adhering to the principles of ALARA. COMPARISON: Comparison made to prior CT scan of the lumbar spine from September 23, 2022. FINDINGS: Vertebrae: There is an acute two column superior plate fracture of the L2 vertebral body with 9% loss of vertebral body height and bulge in the posterior wall into the spinal canal. This fracture is amenable to vertebroplasty. Patient is status post posterior decompression and fusion of L2-S1 with transpedicular screws and connecting rods in place. There is solid interbody fusion at L4-5 and L5-S1. There is incomplete interbody fusion of L1 and L2 with metallic intervertebral body fusion device in place. 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 Mild left SI joint arthropathy. Discs/spinal canal/neural foramina: No acute findings. No spinal canal stenosis. Soft tissues: Unremarkable. IMPRESSION: There is an acute two column superior plate fracture of L2 vertebral body with 9% loss of vertebral body height. This fracture is amenable to vertebroplasty. Electronically signed by: Megan Tillman MD 10/07/22 00:26 AM MDM Narrative Prior records/ancillary studies reviewed. Triage Nursing notes reviewed. Additional history obtained from family. The patient's history was concerning for back pain. Differential diagnosis: Etiologies such as musculoskeletal, disc herniation, fracture, aortic disease, metastatic disease, cord compression, discitis, infection, renal colic, ga strointestinal, acute exacerbation of chronic back pain, sciatica, cauda equina, as well as others were entertained. Physical findings: As above. No focal neurologic findings noted. ER treatment provided: Patient is given morphine from EMS. Patient was given morphine x2 and Tylenol in the ER for ongoing pain On reassessment the patient felt better. Diagnostics interpreted by me: Imaging studies: CT of the L-spine concerning for L2 endplate fracture per my independent interpretation and report was reviewed as above. Labs: Mild anemia. No worrisome leukocytosis, glucose 98 Consultation: A consultation was placed with hospitalist. The case was discussed and diagnostics were reviewed. Patient will be admitted to their service. This appears to be consistent with L2 endplate fracture and intractable back pain. patient continues severe amount of pain. He was given multiple rounds of pain meds. Medicine was consulted the case was discussed. He will be admitted to the medical service. Labs and diagnostics were independent interpreted by myself. Radiology read the CAT scan. By the evaluation outlined above emergent etiologies such as aortic disease, metastatic disease, infection, renal colic, gastrointestinal, cord compression, cauda equina, as well as others were deemed relatively unlikely. The pt informed about the findings as listed above. All questions were answered and pleased with the treatment. The chart was completed utilizing [employer] Speech voice recognition software. Grammatical errors, random word insertions, pronoun errors, and incomplete sentences are an occassional consequence of this system due to software limitations, ambient noise, and hardware issues. Any formal questions or concerns about the content, text, or information contained within the body of this dictation should be directly addressed to the physician clerical dentist assistant for clarification. Impression & Plan Closed L2 vertebral fracture, Acute low back pain Discharge Plan Visit Data Chief Complaint: Back Injury/Pain Stated Complaint: BACK PAIN, RECENT SURGERY ED Provider: Alyx Gonzales ED Midlevel Provider: Sola Guajardo Discharge Problem: Closed L2 vertebral fracture, Acute low back pain Patient Disposition: Admitted As Inpatient Condition: Good Forms Stand Alone Forms: [facility] [employer] Prescriptions Prescriptions: No Action aspirin 81 mg tablet,delayed release (DR/EC) 81 mg PO QAM carvedilol 6.25 mg tablet 6.25 mg PO BID losartan 50 mg tablet 50 mg PO BID hydrochlorothiazide 25 mg tablet 12.5 mg PO QAM gabapentin 300 mg capsule 600 mg PO QDL Rx Instructions: NOON gabapentin 300 mg capsule 300 mg PO BID Rx Instructions: 300mg (1 tab)morning, 600mg (2 tab) afternoon, 300mg (1 tab) evening oxycodone 10 mg tablet 10 mg PO Q6 PRN (Reason: Pain) tramadol 50 mg tablet 50 mg PO Q6 PRN (Reason: Moderate Pain (Scale Score 5-6)) cyanocobalamin (vitamin B-12) 1,000 mcg capsule 1,000 mcg PO DAILY Qty: 30 0RF oxycodone 5 mg tablet 5 mg PO Q6H PRN (Reason: pain) Qty: 30 0RF Referrals Referrals: Arnie Kim DO [Primary Care Provider] - Closed L2 vertebral fracture Qualifiers: Encounter type: initial encounter Fracture morphology: unspecified fracture morphology Qualified Code(s): S32.029A - Unspecified fracture of second lumbar vertebra, initial encounter for closed fracture
[2022-10-06] MEDS ORDERED: MoRPHine SULFATE 4 MG/ML 1 ML CARP\\VIAL IV STA (23:25)
[2022-10-06 23:37] LABS: Basophils # (auto) 0.05 K/uL (0-0.2); Basophils % (auto) 0.5 %; Eosinophils # (auto) 0.49 K/uL (0-0.50); Eosinophils % (auto) 5.4 %; Hematocrit (blood only) 34.6 % (42.0-52.0); Hemoglobin 12.1 g/dl (14.0-18.0); Immature Granulocytes # (auto) 0.05 K/uL (0.01-0.20); Immature Granulocytes % (auto) 0.5 %; Lymphocytes # (auto) 1.34 K/uL (1.2-3.4); Lymphocytes % (auto) 14.7 %; Mean Corpuscular Hemoglobin 34.9 pg (25.0-34.0); Mean Corpuscular Volume 99.7 fL (80.0-100.0); Mean Platelet Volume 10.8 fL (9.4-12.4); Monocytes # (auto) 0.81 K/uL (0.11-0.59); Monocytes % (auto) 8.9 %; Neutrophils # (auto) 6.38 K/uL (1.40-6.50); Platelet Count 188 K/uL (130-400); RDW Coefficient of Variation 12.3 % (11.5-14.5); RDW Standard Deviation 44.6 fL (36.4-46.3); Red Blood Count 3.47 M/uL (4.70-6.10); White Blood Count 9.12 K/ul (4.8-10.8)
[2022-10-06 23:58] LABS: Alanine Aminotransferase 15 U/L (7-52); Albumin Globulin Ratio 1.4 (0.9-2); Albumin Level 3.6 gm/dl (3.4-5.0); Alkaline Phosphatase 93 U/L (34-104); Anion Gap 11 (3-11); Aspartate Aminotransferase 13 U/L (13-39); BUN Creatinine Ratio 18.9 (10-20); Bilirubin,Total 0.7 mg/dl (0.2-1.0); Blood Urea Nitrogen 17 mg/dl (6-23); Calcium 8.6 mg/dl (8.6-10.3); Carbon Dioxide 23 mmol/L (21-32); Chloride 96 mmol/L (98-107); Est GFR (African American) 104.2 ml/min; Est GFR (Non-African American) 89.9 ml/min; Globulin 2.5 gm/dl (2.5-4.0); Glucose 98 mg/dl (70-99(Fasting)); Potassium 3.8 mmol/L (3.5-5.1); Sodium 130 mmol/L (136-145); Total Protein 6.1 gm/dl (6.0-8.3)
--- NOTE | 2022-10-07 00:27 | CT Scan Report ---
Exam(s): CT L SPINE EXAM: CT Lumbar Spine Without Intravenous Contrast CLINICAL HISTORY: Reason for exam: fall, recent back OR, pain. TECHNIQUE: Axial computed tomography images of the lumbar spine without intravenous contrast. CTDI is 39.4 mGy and DLP is 1350.71 mGy-cm. Automated exposure control was utilized for the study. A dose lowering technique was utilized adhering to the principles of ALARA. COMPARISON: Comparison made to prior CT scan of the lumbar spine from September 23, 2022. FINDINGS: Vertebrae: There is an acute two column superior plate fracture of the L2 vertebral body with 9% loss of vertebral body height and bulge in the posterior wall into the spinal canal. This fracture is amenable to vertebroplasty. Patient is status post posterior decompression and fusion of L2-S1 with transpedicular screws and connecting rods in place. There is solid interbody fusion at L4-5 and L5-S1. There is incomplete interbody fusion of L1 and L2 with metallic intervertebral body fusion device in place. 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 Mild left SI joint arthropathy. Discs/spinal canal/neural foramina: No acute findings. No spinal canal stenosis. Soft tissues: Unremarkable. IMPRESSION: There is an acute two column superior plate fracture of L2 vertebral body with 9% loss of vertebral body height. This fracture is amenable to vertebroplasty. Electronically signed by: Megan Tillman MD 10/07/22 00:26 AM
[2022-10-07] MEDS ORDERED: ACETAMINOPHEN 1,000 MG/100 ML VIAL IV STA (00:32)
[2022-10-07] MEDS ORDERED: MoRPHine SULFATE 4 MG/ML 1 ML CARP\\VIAL IV STA (00:33)
[2022-10-07 01:33] LABS: Appearance Urine Clear (Clear); Bilirubin Urine Negative (Negative); Blood Urine Negative (Negative); Color Urine Yellow; Glucose Urine UA Negative (Negative); Ketones Urine Negative (Negative); Leukocyte Esterase Urine Negative (Negative); Nitrite Urine Negative (Negative); Protein Urine Negative (Negative); Specific Gravity Urine 1.004 (1.000-1.030); Urobilinogen Urine Negative (Negative)
--- NOTE | 2022-10-07 01:52 | History & Physical Report ---
Date of Service October 07, 2022 Assessment & Plan (1) Closed L2 vertebral fracture: Plan: Patient with L2 vertebral fracture at the top of his level of recent lumbar fusion after sustaining a fall to the ground With acute on chronic pain in the lower back and with right LE radiculopathy ongoing since previous surgery -Admit to medical/surgical unit for pain control -Consult Dr. Dunbar of orthopedic spine surgery -Continue home oxycodone, Tylenol, and add IV morphine as needed, add Flexeril 5 Mg p.o. 3 times daily as needed muscle spasm -Continue home gabapentin which was actually recently increased in dose for a total of 1500 mg daily-take 300 Mg in the morning and 600 at lunch and 600 at bedtime -PT/OT consults placed (2) Acute low back pain: Plan: As noted above (3) Hyponatremia: Plan: Sodium low at 130 on admission, previously normal Could be secondary to SIADH from pain Check urine osmolality and urine sodium Hold home HCTZ for now Follow BMP in the morning (4) Hypertension: Plan: Blood pressures are controlled -Continue home carvedilol, losartan -Hold home HCTZ for hyponatremia (5) B12 deficiency: Plan: Continue home B12 Plan DVT prophylaxis-SCDs Disposition-admit to medical/surgical unit, PT/OT consults placed History of Present Illness Chief Complaint: Back pain, fall Primary Care Provider: Arnie Kim, This patient is a 62-year-old male with history of HTN, B12 deficiency, lumbar spinal stenosis and neurogenic claudication s/p L2-L3 decompression and fusion with hardware placement on 09/19, followed by return to the OR on 09/23 for debridement and washout with drainage of seroma performed for persistent right lower extremity radiculopathy. He presents to the ER today with severe lower back pain after a fall. He got out of his truck and his legs sort of gave out and he was able to hold onto the truck door and lower himself to the ground and landed on his bottom. He had worsening pain both in the lower back and down his right thigh like he has been having the last 2 weeks. Denies loss of bowel or bladder, saddle anesthesia, fevers, chills. He received IV morphine x2 doses and IV Tylenol in the ER but continued to have significant pain. He had a CT of the lumbar spine which showed an acute 2 column superior plate fracture of the L2 vertebral body with 9% loss of vertebral body height. He will be admitted for pain control and consultation with his orthopedic spine surgeon, Dr. Dunbar. . Allergies Allergy/AdvReac Type Severity Reaction Status Date / Time No Known Allergies Allergy Verified 10/06/22 22:47 Home Medications Medication Instructions Recorded Confirmed Type aspirin 81 mg tablet,delayed 81 mg PO QAM 09/28/18 10/06/22 History release carvedilol 6.25 mg tablet 6.25 mg PO BID 09/28/18 10/06/22 History losartan 50 mg tablet 50 mg PO BID 09/28/18 10/06/22 History hydrochlorothiazide 25 mg tablet 12.5 mg PO QAM 08/24/22 10/06/22 History cyanocobalamin (vitamin B-12) 1,000 mcg PO DAILY #30 caps 09/25/22 10/06/22 Rx 1,000 mcg capsule oxycodone 5 mg tablet 5 mg PO Q6H PRN pain #30 tabs 09/27/22 10/06/22 Rx gabapentin 300 mg capsule 300 mg PO BID 09/30/22 10/06/22 History gabapentin 300 mg capsule 600 mg PO QDL 09/30/22 10/06/22 History oxycodone 10 mg tablet 10 mg PO Q6 PRN Pain 10/06/22 10/06/22 History tramadol 50 mg tablet 50 mg PO Q6 PRN Moderate Pain 10/06/22 10/06/22 History (Scale Score 5-6) Past Med/Surg History Medical History Aortic root dilatation 4.1cm per 06/2021 Echo B12 deficiency Chronic back pain Chronic hyponatremia Baseline sodium low 130s per chart review Dyslipidemia Borderline History of prostate cancer Dx 2019, s/p radiation therapy (completed 04/2020), no current issues Hypertension Lumbar radiculopathy Lumbar spinal stenosis 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 fusion procedure Neuropathy Feet Obesity Surgical History H/O elbow surgery Right elbow tendon repair (2006) H/O excision of mass Excision of Gluteal Cyst (10/2018) H/O retained foreign body fully removed 1994 Eyes, 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 History of colonoscopy History of discectomy Lumbar discectomy/laminectomy (2009, 2014) History of herniorrhaphy Right inguinal hernia (1989) History of kyphoplasty T5 kyphoplasty with biopsy (09/16/14): Grade view 1, Glidescope#4, ETT 7.5 at [facility] History of lumbar fusion L3-S1 decompression/fusion (06/15/20): Grade 2 view, Glidescope#4, ETT 8.0 at [facility] History of prostate biopsy History of tonsillectomy As child Family History Mother , age 81 heart disease FHx: abdominal aortic aneurysm Hypertension Father , lived with prostate cancer 35 years, age 99 old age Prostate cancer Brother Prostate cancer Sister Family hx colonic polyps PRE CANCEROUS POLYP Brother Prostate cancer age 65-had prostate removed, still alive and well Sister No problems noted. Sister Family hx colonic polyps Son No problems noted. Son No problems noted. Daughter No problems noted. Other No family history of adverse response to anesthesia Denies family history of Ovarian cancer Myocardial infarction Breast cancer Colorectal cancer Social History Smoking Status: Never smoker Second Hand Exposure: No; Do You Dip or Chew Tobacco: No (Hx); Hx Alcohol Use: Yes Alcohol type: beer Alcohol Intake Frequency: 2-3 x/Week Hx Substance Use: No Preferred Language: Amharic Communication Ability: Effective Visual Impairment: No Limitations Hearing Ability: Normal Analytical Sciences Director Required: No Beliefs That Will Affect Care: None marital status: Current Living Situation: Spouse and Family current occupational status: retired 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 [employer] Feels Safe at Home: Yes Diet: regular caffeine: Yes during the past year weight has: remained stable Dental Care, Regularly: No Physical Activity Frequency: 1-2 Times per Week Seatbelt Use: sometimes Sunscreen Use: No Assistive Devices: Walker Review of Systems Review of Systems: All systems reviewed & are unremarkable except as noted in HPI & below Physical Exam Constitutional: WD/WN, vitals as above + obese Neck: trachea midline, no thyromegaly Respiratory: normal respiratory effort, lungs clear to auscultation Cardiovascular: RRR, no murmur, no edema Chest (Breasts): Chest: normal inspection of chest Gastrointestinal (Abdomen): normal bowel sounds, soft, nontender, no hepatosplenomegaly Musculoskeletal: Extremities: extremities normal to inspection; no cyanosis and no clubbing Positive tenderness to palpation over lower back lumbar paraspinous muscles Skin: no rashes, warm and dry Neurologic: moves all extremities and awake Can move all extremities but pain in back with movement of lower extremities Psychiatric: A+Ox3, euthymic affect Lymphatic: no lymphedema Results & Data Results & Data Vital Signs (Past 12 Hours) Vital Signs Temp Pulse Pulse Resp BP BP Pulse Ox 10/07/22 01:02 83 16 130/72 97 10/06/22 23:35 84 16 110/70 92 10/06/22 22:33 18 97 10/06/22 20:59 74 10/06/22 20:56 36.6 C 10/06/22 20:56 36.6 C 80 15 123/72 92 O2 Del Method O2 Flow Rate 10/07/22 01:02 Nasal Cannula 2 10/06/22 23:35 Room Air 10/06/22 22:33 10/06/22 20:59 10/06/22 20:56 10/06/22 20:56 Room Air Laboratory Results CBC, CMP, urinalysis all reviewed Diagnostic Findings Lumbar Spine CT 10/06/22 21:35 Exam(s): CT L SPINE EXAM: CT Lumbar Spine Without Intravenous Contrast CLINICAL HISTORY: Reason for exam: fall, recent back OR, pain. TECHNIQUE: Axial computed tomography images of the lumbar spine without intravenous contrast. CTDI is 39.4 mGy and DLP is 1350.71 mGy-cm. Automated exposure control was utilized for the study. A dose lowering technique was utilized adhering to the principles of ALARA. COMPARISON: Comparison made to prior CT scan of the lumbar spine from September 23, 2022. FINDINGS: Vertebrae: There is an acute two column superior plate fracture of the L2 vertebral body with 9% loss of vertebral body height and bulge in the posterior wall into the spinal canal. This fracture is amenable to vertebroplasty. Patient is status post posterior decompression and fusion of L2-S1 with transpedicular screws and connecting rods in place. There is solid interbody fusion at L4-5 and L5-S1. There is incomplete interbody fusion of L1 and L2 with metallic intervertebral body fusion device in place. 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 Mild left SI joint arthropathy. Discs/spinal canal/neural foramina: No acute findings. No spinal canal stenosis. Soft tissues: Unremarkable. IMPRESSION: There is an acute two column superior plate fracture of L2 vertebral body with 9% loss of vertebral body height. This fracture is amenable to vertebroplasty. Electronically signed by: Megan Tillman MD 10/07/22 00:26 AM Code Status & VTE Plan Code Status Full code VTE Prophylaxis Plan VTE Prophylaxis will be ordered: Yes PG Care Time/CCT Total # of Minutes Spent Total Time Spent with Patient: Total time spent is greater than 50% in coordination of care (as documented) at patient's floor/unit and/or counseling patient: Coding Level of Care Code 89121 INT INP/OBS CARE 2/55MIN Diagnoses Closed L2 vertebral fracture S32.029A Encounter type: initial encounter Fracture morphology: unspecified fracture morphology Acute low back pain M54.50 Hyponatremia E87.1 Hypertension I10 B12 deficiency E53.8 (1) Closed L2 vertebral fracture Encounter type: initial encounter Fracture morphology: unspecified fracture morphology Qualified Code(s): S32.029A - Unspecified fracture of second lumbar vertebra, initial encounter for closed fracture
[2022-10-07] MEDS ORDERED: CYCLOBENZAPRINE HCL 5 MG TAB PO STA (02:12)
[2022-10-07] MEDS ORDERED: ONDANSETRON INJ 2 MG/ML 2 ML VIAL IV PRN (03:34)
[2022-10-07] MEDS ORDERED: ACETAMINOPHEN 325 MG TAB PO PRN (03:34)
[2022-10-07] MEDS ORDERED: oxyCODONE HCL IR 5 MG TAB (IMMEDIATE RELEASE) PO PRN (03:34)
[2022-10-07] MEDS: MoRPHine SULFATE 2 MG/ML CARP IV PRN ×2 (07:47→12:03)
[2022-10-07 08:47] LABS: BUN Creatinine Ratio 16.7 (10-20); Creatinine Clr Calc Pharmacy 122.7 ml/min; Est GFR (African American) 110.6 ml/min; Est GFR (Non-African American) 95.4 ml/min; Potassium 4.1 mmol/L (3.5-5.1)
[2022-10-07] MEDS: oxyCODONE HCL IR 5 MG TAB (IMMEDIATE RELEASE) PO PRN ×2 (10:09→17:17)
[2022-10-07] MEDS: GABAPENTIN 300 MG CAP PO SCH (10:31)
[2022-10-07] MEDS: carvediloL 6.25 MG TAB PO SCH ×2 (10:31→19:20)
[2022-10-07] MEDS: LOSARTAN POTASSIUM 50 MG TAB PO SCH ×2 (10:31→19:19)
[2022-10-07] MEDS: CYANOCOBALAMIN (B-12) 500 MCG TABLET PO SCH (10:56)
[2022-10-07] MEDS: GABAPENTIN 600 MG TAB PO SCH ×2 (11:22→19:20)
[2022-10-07] MEDS ORDERED: HYDROmorphone INJ 1 MG/ML SYRINGE IV STA (13:12)
--- NOTE | 2022-10-07 13:15 | Orthopedic Consultation ---
Date of Consultation October 07, 2022 Assessment & Plan (1) Closed L2 vertebral fracture: Assessment L2 pedicle fracture. Plan at this time he continues to have severe radiculopathy undoubtedly related to the L2 pedicle fracture. It is propagated in nature. I discussion today with the patient regarding his postoperative course he is failed to improve with rest and attempted healing. I am recommending that we return to the OR remove the pedicle screw and extend the fusion to T11 or T12 to adequately stabilize the area of instability. Patient understands agrees. We will obtain further imaging and plan for surgery early next week. History of Present Illness Reason for Consultation: Continued right leg pain Attending Physician: Dhiraj Montoya History of Present Illness This is a 62 male who presents with continued right anterior thigh pain. It is an L2 pattern. This initiated postop and he had some improvement but it continues to decline overall. Updated imaging of the CAT scan demonstrates propagation of L2 pedicle fracture. This is on the right. Consistent with his pain patterns. Allergies Allergy/AdvReac Type Severity Reaction Status Date / Time No Known Allergies Allergy Verified 10/06/22 22:47 Home Medications Medication Instructions Recorded Confirmed Type aspirin 81 mg tablet,delayed 81 mg PO QAM 09/28/18 10/06/22 History release carvedilol 6.25 mg tablet 6.25 mg PO BID 09/28/18 10/06/22 History losartan 50 mg tablet 50 mg PO BID 09/28/18 10/06/22 History hydrochlorothiazide 25 mg tablet 12.5 mg PO QAM 08/24/22 10/06/22 History cyanocobalamin (vitamin B-12) 1,000 mcg PO DAILY #30 caps 09/25/22 10/06/22 Rx 1,000 mcg capsule oxycodone 5 mg tablet 5 mg PO Q6H PRN pain #30 tabs 09/27/22 10/06/22 Rx gabapentin 300 mg capsule 300 mg PO BID 09/30/22 10/06/22 History gabapentin 300 mg capsule 600 mg PO QDL 09/30/22 10/06/22 History oxycodone 10 mg tablet 10 mg PO Q6 PRN Pain 10/06/22 10/06/22 History tramadol 50 mg tablet 50 mg PO Q6 PRN Moderate Pain 10/06/22 10/06/22 History (Scale Score 5-6) Patient History Medical History Aortic root dilatation 4.1cm per 06/2021 Echo B12 deficiency Chronic back pain Chronic hyponatremia Baseline sodium low 130s per chart review Dyslipidemia Borderline History of prostate cancer Dx 2019, s/p radiation therapy (completed 04/2020), no current issues Hypertension Lumbar radiculopathy Lumbar spinal stenosis 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 fusion procedure Neuropathy Feet Obesity Surgical History H/O elbow surgery Right elbow tendon repair (2006) H/O excision of mass Excision of Gluteal Cyst (10/2018) H/O retained foreign body fully removed 1994 Eyes, 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 History of colonoscopy History of discectomy Lumbar discectomy/laminectomy (2009, 2014) History of herniorrhaphy Right inguinal hernia (1989) History of kyphoplasty T5 kyphoplasty with biopsy (09/16/14): Grade view 1, Glidescope#4, ETT 7.5 at [facility] History of lumbar fusion L3-S1 decompression/fusion (06/15/20): Grade 2 view, Glidescope#4, ETT 8.0 at [facility] History of prostate biopsy History of tonsillectomy As child Family History Mother , age 81 heart disease FHx: abdominal aortic aneurysm Hypertension Father , lived with prostate cancer 35 years, age 99 old age Prostate cancer Brother Prostate cancer Sister Family hx colonic polyps PRE CANCEROUS POLYP Brother Prostate cancer age 65-had prostate removed, still alive and well Sister No problems noted. Sister Family hx colonic polyps Son No problems noted. Son No problems noted. Daughter No problems noted. Other No family history of adverse response to anesthesia Denies family history of Ovarian cancer Myocardial infarction Breast cancer Colorectal cancer Social History Smoking Status: Never smoker Second Hand Exposure: No; Do You Dip or Chew Tobacco: No (Hx); Hx Alcohol Use: Yes Alcohol type: beer Alcohol Intake Frequency: 2-3 x/Week Hx Substance Use: No Preferred Language: Turkmen Communication Ability: Effective Visual Impairment: No Limitations Hearing Ability: Normal Glass Science Engineer Required: No Beliefs That Will Affect Care: None marital status: Current Living Situation: Spouse current occupational status: retired 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 Is nondistressed. First lean towards the left. He has reasonable strength testing otherwise. There is sensory deficits to the right anterior thigh compared to the left. Results & Data Vital Signs (Past 12 Hours) Vital Signs Temp Pulse Resp BP Pulse Ox O2 Del Method O2 Flow Rate 10/07/22 12:00 36.9 C 69 18 180/93 H 95 Room Air 10/07/22 11:00 36.7 C 75 16 155/84 H 95 Room Air 10/07/22 07:33 71 20 163/93 H 100 Nasal Cannula 2 10/07/22 05:46 74 16 157/86 H 99 Nasal Cannula 2 10/07/22 03:50 67 16 139/74 97 Nasal Cannula 2 10/07/22 03:39 36.5 C 69 16 139/74 97 Nasal Cannula 2 10/07/22 02:25 69 18 141/79 H 99 Nasal Cannula 2 (1) Closed L2 vertebral fracture Encounter type: initial encounter Fracture morphology: unspecified fracture morphology Qualified Code(s): S32.029A - Unspecified fracture of second lumbar vertebra, initial encounter for closed fracture
--- NOTE | 2022-10-07 15:49 | CT Scan Report ---
CT SCAN OF THE THORACIC SPINE WITHOUT IV CONTRAST CLINICAL HISTORY: Preoperative examination. Low back pain. L2 fracture. COMPARISON STUDY: Radiographs of the thoracic spine dated 05/09/2014. CT scan of the lumbar spine date d 10/06/2022. TECHNIQUE: CT scan of the thoracic spine is performed from the lower cervical spine to the upper lumb ar spine. Images were reviewed in the axial, sagittal, and coronal planes. IV contrast was not admini stered for this examination. A dose lowering technique was utilized adhering to the principles of ALA RA. CT DOSE: 1564.45 mGy.cm FINDINGS: The skeletal structures are osteopenic. There is no evidence of acute fracture or malalignm ent involving the thoracic spine. There is a minimal chronic compression deformity of T5 with evidenc e of prior vertebroplasty. There is also a minimal chronic superior endplate compression deformity of T6. Vertebral body height is otherwise maintained throughout the thoracic spine. Alignment is preser lino. Flowing anterior osteophytes are seen throughout. The transverse and spinous processes appear in tact. No lytic or blastic lesion is seen. A hemangioma is noted in the body of L1. There is mild mult ilevel degenerative disc space narrowing. There is no CT evidence of large disc herniation or signifi cant central canal stenosis. Paravertebral edema is seen at the level of L1, likely related to the kn own L2 fracture. The paraspinous soft tissues are otherwise normal in appearance. A 3.1 cm cyst is pa rtially visualized in the left kidney. There are scattered calcified granulomas. The visualized lung parenchyma is otherwise clear. IMPRESSION: 1. There is no evidence of acute fracture or malalignment involving the thoracic spine. 2. Osteopenia with chronic changes as above. 3. Paravertebral edema at the L1 level is likely related to the known L2 fracture. ACT 112: Negative or not required by law. Dictated: 10/07/2022 2:51 PM Transcribed: 10/07/2022 3:38 PM Timmy [id number] [email or web address] Electronically signed by: Vishnu Mata M.D. 10/07/2022 3:48 PM
[2022-10-07] MEDS: CYCLOBENZAPRINE HCL 5 MG TAB PO PRN (17:50)
[2022-10-07] MEDS: HYDROmorphone INJ 1 MG/ML SYRINGE IV PRN (19:19)
[2022-10-07] MEDS ORDERED: GABAPENTIN 600 MG TAB PO SCH (21:00)
--- NOTE | 2022-10-07 22:09 | Hospitalist Progress Note ---
Date of Service October 07, 2022 Assessment & Plan Admission and Anticipated Discharge Date Admission Date: October 07, 2022 Results & Data Results & Data Vital Signs (Past 12 Hours) Vital Signs Temp Pulse Resp BP Pulse Ox O2 Del Method 10/07/22 21:57 36.5 C 71 16 129/77 97 Room Air 10/07/22 19:32 Room Air 10/07/22 19:18 36.5 C 75 16 179/86 H 97 Room Air 10/07/22 13:36 36.6 C 86 14 142/86 H 93 Room Air 10/07/22 12:00 36.9 C 69 18 180/93 H 95 Room Air 10/07/22 11:00 36.7 C 75 16 155/84 H 95 Room Air PG Care Time/CCT Total # of Minutes Spent Total Time Spent with Patient: Total time spent is greater than 50% in coordination of care (as documented) at patient's floor/unit and/or counseling patient: Coding Diagnoses
[2022-10-08] MEDS: oxyCODONE HCL IR 5 MG TAB (IMMEDIATE RELEASE) PO PRN ×4 (00:19→20:02)
[2022-10-08] MEDS: HYDROmorphone INJ 1 MG/ML SYRINGE IV PRN ×4 (05:44→22:16)
[2022-10-08] MEDS: GABAPENTIN 300 MG CAP PO SCH (08:24)
[2022-10-08] MEDS: CYANOCOBALAMIN (B-12) 500 MCG TABLET PO SCH (08:24)
[2022-10-08] MEDS: carvediloL 6.25 MG TAB PO SCH ×2 (08:24→20:04)
[2022-10-08] MEDS: LOSARTAN POTASSIUM 50 MG TAB PO SCH ×2 (08:25→20:04)
--- NOTE | 2022-10-08 08:38 | Orthopedic Progress Note ---
Date of Service October 08, 2022 Assessment & Plan (1) Closed L2 vertebral fracture: Plan: Continue with pain control. DVT prophylaxis is in the form of teds and SCDs. Ambulate with TLSO brace on. Current plan is to proceed with extension of his fusion into the lower thoracic spine early next week. Admission and Anticipated Discharge Date Admission Date: October 07, 2022 Marcella Pineda complains of considerable back pain sometimes radiating to the right lower extremity. This is reproduced with any change of position. He received his rigid TLSO brace. This is to be worn when up and ambulating and with activity. Current plan is to proceed with surgical intervention extending his fusion into the lower thoracic region early next week, possibly as soon as Monday. Review of Systems Review of Systems: All systems reviewed & are unremarkable except as noted in HPI & below Physical Exam Physical Exam: He sitting in a chair in no acute distress Alert and oriented times Strength intact bilateral lower extremity Calf soft and nontender bilaterally Results & Data Vital Signs (Past 12 Hours) Vital Signs Temp Pulse Resp BP Pulse Ox O2 Del Method 10/08/22 08:09 36.6 C 67 18 117/75 98 Room Air 10/07/22 21:57 36.5 C 71 16 129/77 97 Room Air (1) Closed L2 vertebral fracture Encounter type: initial encounter Fracture morphology: unspecified fracture morphology Qualified Code(s): S32.029A - Unspecified fracture of second lumbar vertebra, initial encounter for closed fracture
--- NOTE | 2022-10-08 11:03 | Hospitalist Progress Note ---
Date of Service October 08, 2022 Assessment & Plan (1) Closed L2 vertebral fracture: Plan: Patient with L2 vertebral fracture at the top of his level of recent lumbar fusion after sustaining a fall to the ground With acute on chronic pain in the lower back and with right LE radiculopathy ongoing since previous surgery -Admit to medical/surgical unit for pain control -Consult Dr. Dunbar of orthopedic spine surgery -Continue home oxycodone, Tylenol, and add IV morphine as needed, add Flexeril 5 Mg p.o. 3 times daily as needed muscle spasm -Continue home gabapentin which was actually recently increased in dose for a total of 1500 mg daily-take 300 Mg in the morning and 600 at lunch and 600 at bedtime -PT/OT consults placed Awaiting for ortho spine surgery on Monday. (2) Acute low back pain: Plan: As noted above (3) Hyponatremia: Plan: Sodium low at 130 on admission, previously normal Could be secondary to SIADH from pain Check urine osmolality and urine sodium Hold home HCTZ for now sodium improved. (4) Hypertension: Plan: Blood pressures are controlled -Continue home carvedilol, losartan -Hold home HCTZ for hyponatremia (5) B12 deficiency: Plan: Continue home B12 Plan DVT prophylaxis-SCDs Admission and Anticipated Discharge Date Admission Date: October 07, 2022 Subjective 62 yo male reports no new symptoms. Review of Systems Review of Systems: All systems reviewed & are unremarkable except as noted in HPI & below Physical Exam Constitutional: WD/WN, vitals as above + obese Neck: trachea midline, no thyromegaly Respiratory: normal respiratory effort, lungs clear to auscultation Cardiovascular: RRR, no murmur, no edema Chest (Breasts): Chest: normal inspection of chest Gastrointestinal (Abdomen): normal bowel sounds, soft, nontender, no hepatosplenomegaly Musculoskeletal: Extremities: extremities normal to inspection; no cyanosis and no clubbing Skin: no rashes, warm and dry Neurologic: moves all extremities and awake Psychiatric: A+Ox3, euthymic affect Lymphatic: no lymphedema Results & Data Results & Data Vital Signs (Past 12 Hours) Vital Signs Temp Pulse Resp BP Pulse Ox O2 Del Method 10/08/22 08:09 36.6 C 67 18 117/75 98 Room Air PG Care Time/CCT Total # of Minutes Spent Total Time Spent with Patient: Total time spent is greater than 50% in coordination of care (as documented) at patient's floor/unit and/or counseling patient: Coding Level of Care Code 78444 SUB INP/OBS CARE 2MIN Diagnoses Closed L2 vertebral fracture S32.029A Encounter type: initial encounter Fracture morphology: unspecified fracture morphology Acute low back pain M54.50 Hyponatremia E87.1 Hypertension I10 B12 deficiency E53.8 (1) Closed L2 vertebral fracture Encounter type: initial encounter Fracture morphology: unspecified fracture morphology Qualified Code(s): S32.029A - Unspecified fracture of second lumbar vertebra, initial encounter for closed fracture
[2022-10-08] MEDS: GABAPENTIN 600 MG TAB PO SCH ×2 (13:44→20:04)
[2022-10-08] MEDS: HEPARIN SOD 5,000 UNIT/0.5 ML VIAL SQ SCH (18:13)
[2022-10-09] MEDS: oxyCODONE HCL IR 5 MG TAB (IMMEDIATE RELEASE) PO PRN ×3 (02:12→20:12)
[2022-10-09] MEDS: HYDROmorphone INJ 1 MG/ML SYRINGE IV PRN ×4 (05:02→23:37)
[2022-10-09 06:24] LABS: Hematocrit (blood only) 35.1 % (42.0-52.0); Hemoglobin 12.1 g/dl (14.0-18.0); Mean Corpuscular Hemoglobin 34.8 pg (25.0-34.0); Mean Corpuscular Hgb Conc 34.5 g/dL (32.0-36.0); Mean Corpuscular Volume 100.9 fL (80.0-100.0); Platelet Count 138 K/uL (130-400); RDW Coefficient of Variation 12.4 % (11.5-14.5); Red Blood Count 3.48 M/uL (4.70-6.10); White Blood Count 7.41 K/ul (4.8-10.8)
[2022-10-09 06:47] LABS: BUN Creatinine Ratio 20.7 (10-20); Calcium 9.5 mg/dl (8.6-10.3); Creatinine Clr Calc Pharmacy 116.8 ml/min; Est GFR (African American) 108.3 ml/min; Est GFR (Non-African American) 93.5 ml/min; Potassium 4.1 mmol/L (3.5-5.1)
[2022-10-09] MEDS: LOSARTAN POTASSIUM 50 MG TAB PO SCH ×2 (08:21→20:12)
[2022-10-09] MEDS: GABAPENTIN 300 MG CAP PO SCH (08:21)
[2022-10-09] MEDS: HEPARIN SOD 5,000 UNIT/0.5 ML VIAL SQ SCH (08:22)
[2022-10-09] MEDS: CYANOCOBALAMIN (B-12) 500 MCG TABLET PO SCH (08:22)
[2022-10-09] MEDS: carvediloL 6.25 MG TAB PO SCH ×2 (08:22→20:11)
--- NOTE | 2022-10-09 08:40 | Orthopedic Progress Note ---
Date of Service October 09, 2022 Assessment & Plan (1) Closed L2 vertebral fracture: Plan: Plan is to proceed with surgical intervention in the form of a T11-L3 fusion tomorrow. Today work on aggressive bowel regimen. Hold heparin. DVT prophylaxis is in the form teds and SCDs. Continue with pain control. TLSO brace to be worn with ambulation and activity. All questions have been answered in detail with the patient. Admission and Anticipated Discharge Date Admission Date: October 07, 2022 Subjective No change in patient's symptoms. Still mostly has lower back pain with any type of rotation, ambulation or movement. Passing flatus but no bowel movement. Currently on heparin for DVT prophylaxis. Plan is to proceed with surgical i ntervention tomorrow. Review of Systems Review of Systems: All systems reviewed & are unremarkable except as noted in HPI & below Physical Exam Physical Exam: He sitting in a chair no acute alert and oriented x3 Strength intact bilateral lower extremity Results & Data Vital Signs (Past 12 Hours) Vital Signs Temp Pulse Resp BP Pulse Ox O2 Del Method 10/09/22 06:54 36.6 C 63 18 149/80 H 99 Room Air (1) Closed L2 vertebral fracture Encounter type: initial encounter Fracture morphology: unspecified fracture morphology Qualified Code(s): S32.029A - Unspecified fracture of second lumbar vertebra, initial encounter for closed fracture
[2022-10-09] MEDS: GABAPENTIN 600 MG TAB PO SCH ×2 (11:25→20:12)
--- NOTE | 2022-10-09 12:10 | Hospitalist Progress Note ---
Date of Service October 09, 2022 Assessment & Plan (1) Closed L2 vertebral fracture: Plan: Patient with L2 vertebral fracture at the top of his level of recent lumbar fusion after sustaining a fall to the ground With acute on chronic pain in the lower back and with right LE radiculopathy ongoing since previous surgery -Admit to medical/surgical unit for pain control -Consult Dr. Dunbar of orthopedic spine surgery -Continue home oxycodone, Tylenol, and add IV morphine as needed, add Flexeril 5 Mg p.o. 3 times daily as needed muscle spasm -Continue home gabapentin which was actually recently increased in dose for a total of 1500 mg daily-take 300 Mg in the morning and 600 at lunch and 600 at bedtime -PT/OT consults placed Awaiting for ortho spine surgery on Monday. Increased frequency of dilaudid (2) Acute low back pain: Plan: As noted above (3) Hyponatremia: Plan: Sodium low at 130 on admission, previously normal Could be secondary to SIADH from pain Check urine osmolality and urine sodium sodium improved. (4) Hypertension: Plan: Blood pressures are controlled -Continue home carvedilol, losartan -Hold home HCTZ for hyponatremia (5) B12 deficiency: Plan: Continue home B12 Plan DVT prophylaxis-SCDs ordered heparin Admission and Anticipated Discharge Date Admission Date: October 07, 2022 Subjective 62 yo male reports that his pain is not controlled. He is patiently waiting for his procedure tomorrow as he reports his pain is severe. He reports his dilaudid is not helping as much as it used to and the duration of relief is shorter than the frequency of his pain. Review of Systems Review of Systems: All systems reviewed & are unremarkable except as noted in HPI & below Physical Exam Constitutional: WD/WN, vitals as above Neck: trachea midline, no thyromegaly Respiratory: normal respiratory effort, lungs clear to auscultation Cardiovascular: RRR, no murmur, no edema Chest (Breasts): Chest: normal inspection of chest Gastrointestinal (Abdomen): normal bowel sounds, soft, nontender, no hepatosplenomegaly Musculoskeletal: Extremities: extremities normal to inspection; no cyanosis and no clubbing Skin: no rashes, warm and dry Neurologic: moves all extremities and awake Psychiatric: A+Ox3, euthymic affect Lymphatic: no lymphedema Results & Data Results & Data Vital Signs (Past 12 Hours) Vital Signs Temp Pulse Resp BP Pulse Ox O2 Del Method 10/09/22 06:54 36.6 C 63 18 149/80 H 99 Room Air PG Care Time/CCT Total # of Minutes Spent Total Time Spent with Patient: Total time spent is greater than 50% in coordination of care (as documented) at patient's floor/unit and/or counseling patient: Coding Level of Care Code 65372 SUB INP/OBS CARE 2/35MIN Diagnoses Closed L2 vertebral fracture S32.029A Encounter type: initial encounter Fracture morphology: unspecified fracture morphology Acute low back pain M54.50 Hyponatremia E87.1 Hypertension I10 B12 deficiency E53.8 (1) Closed L2 vertebral fracture Encounter type: initial encounter Fracture morphology: unspecified fracture morphology Qualified Code(s): S32.029A - Unspecified fracture of second lumbar vertebra, initial encounter for closed fracture
[2022-10-09] MEDS: POLYETHYLENE (MIRALAX) 17 GM PACK PO SCH (13:48)
[2022-10-09] MEDS: DOCUSATE SODIUM/SENNA 50/8.6MG TAB PO SCH (13:48)
[2022-10-10] MEDS: HYDROmorphone INJ 1 MG/ML SYRINGE IV PRN ×4 (06:12→22:45)
[2022-10-10] MEDS: LOSARTAN POTASSIUM 50 MG TAB PO SCH ×2 (08:48→21:37)
[2022-10-10] MEDS: POLYETHYLENE (MIRALAX) 17 GM PACK PO SCH (08:48)
[2022-10-10] MEDS: DOCUSATE SODIUM/SENNA 50/8.6MG TAB PO SCH (08:48)
[2022-10-10] MEDS: GABAPENTIN 300 MG CAP PO SCH (08:49)
[2022-10-10] MEDS: carvediloL 6.25 MG TAB PO SCH ×2 (08:49→21:38)
[2022-10-10] MEDS: CYANOCOBALAMIN (B-12) 500 MCG TABLET PO SCH (08:49)
[2022-10-10] MEDS: oxyCODONE HCL IR 5 MG TAB (IMMEDIATE RELEASE) PO PRN ×2 (09:36→21:36)
[2022-10-10] MEDS: GABAPENTIN 600 MG TAB PO SCH ×2 (12:13→21:37)
[2022-10-10] MEDS ORDERED: MIDAZOLAM HCL 1 MG/ML 2ML VIAL ONE (14:12)
[2022-10-10] MEDS ORDERED: fentaNYL citrate PF 100 MCG/2 ML VIAL ONE (14:12)
--- NOTE | 2022-10-10 14:22 | History & Physical Bridge Note ---
Date of Service October 10, 2022 History & Physical Bridge Note I have examined the patient, reviewed the History & Physical and in the interval since the performance of the History & Physical I have noted the following changes of clinical significance: no changes noted Patient has severe L2 radiculopathy has been unable ambulate despite IV pain medication throughout the weekend. He has clear L2 pedicle fracture on the right concordant with his pain patterns and prevent permanent neurologic deficit and generalized decline recommending emergent stabilization of the fracture sites by way of a T11-L3 fusion removal L2 hardware
[2022-10-10] MEDS ORDERED: ONDANSETRON INJ 2 MG/ML 2 ML VIAL IV PRN (14:24)
[2022-10-10] MEDS ORDERED: ALBUT/IPRATROP 3MG/0.5MG NEB 3 ML VIAL INH PRN (14:24)
[2022-10-10] MEDS ORDERED: ATROPINE SULFATE 0.1 MG/ML 10ML SYR IV PRN (14:24)
[2022-10-10] MEDS ORDERED: ePHEDrine sulfate 50 MG/ML AMP IV PRN (14:24)
[2022-10-10] MEDS ORDERED: MEPERIDINE HCL 25 MG/ML CARP/VIAL IV PRN (14:24)
--- NOTE | 2022-10-10 14:24 | Anesthesiology Consultation ---
Date of Service October 10, 2022 Assessment & Plan Chart Review Chart Review: Acceptable Risk for Surgery Consults Requested none ASA ASA3 Proposed Anesthesia Anesthesia Type: General Anesthesia Line Insertion: Arterial line Risk / Benefits Reviewed With: PT / POA / Parent / Guardian, Accepts Plan and Informed Consent Obtained History Surgery Operation Date: 10/10/22 08:00 Proposed Procedures p T11-L3 Fusion - Brad Dunbar, Height/Weight Height: 5 ft 7 in Weight: 127.6 kg Allergies Allergy/AdvReac Type Severity Reaction Status Date / Time No Known Allergies Allergy Verified 10/06/22 22:47 Medications Home Medications Medication Instructions Recorded Confirmed Last Taken aspirin 81 mg tablet,delayed 81 mg PO QAM 09/28/18 10/06/22 09/29/22 release carvedilol 6.25 mg tablet 6.25 mg PO BID 09/28/18 10/06/22 09/29/22 losartan 50 mg tablet 50 mg PO BID 09/28/18 10/06/22 09/29/22 hydrochlorothiazide 25 mg tablet 12.5 mg PO QAM 08/24/22 10/06/22 09/29/22 cyanocobalamin (vitamin B-12) 1,000 mcg PO DAILY #30 caps 09/25/22 10/06/22 09/29/22 1,000 mcg capsule oxycodone 5 mg tablet 5 mg PO Q6H PRN pain #30 tabs 09/27/22 10/06/22 09/29/22 gabapentin 300 mg capsule 300 mg PO BID 09/30/22 10/06/22 09/29/22 gabapentin 300 mg capsule 600 mg PO QDL 09/30/22 10/06/22 09/29/22 12:00 oxycodone 10 mg tablet 10 mg PO Q6 PRN Pain 10/06/22 10/06/22 Unknown tramadol 50 mg tablet 50 mg PO Q6 PRN Moderate Pain 10/06/22 10/06/22 Unknown (Scale Score 5-6) Active Medications Generic Name Dose Route Start Last Admin Trade Name Freq PRN Reason Stop Dose Admin Acetaminophen 650 mg 10/07/22 03:34 10/07/22 13:01 Acetaminophen 325 Mg Tab PO 11/06/22 03:33 650 mg Q4H PRN Administration pain/fever Carvedilol 6.25 mg 10/07/22 09:00 07/31/23 08:49 Carvedilol 6.25 Mg Tab PO 11/06/22 08:59 6.25 mg BID LAURO Administration Cyanocobalamin 1,000 mcg 10/07/22 09:00 10/10/22 08:49 Cyanocobalamin (B-12) 500 Mcg Tablet PO 11/06/22 08:59 1,000 mcg DAILY LAURO Administration Cyclobenzaprine HCl 5 mg 10/07/22 03:34 10/07/22 17:50 Cyclobenzaprine Hcl 5 Mg Tab PO 11/06/22 03:33 5 mg TID PRN Administration muscle spasm Gabapentin 600 mg 10/07/22 11:30 10/10/22 12:13 Gabapentin 600 Mg Tab PO 11/06/22 11:29 600 mg 1130,2100 LAURO Administration Gabapentin 300 mg 10/07/22 09:00 10/10/22 08:49 Gabapentin 300 Mg Cap PO 11/06/22 08:59 300 mg QAM LAURO Administration Heparin Sodium (Porcine) 7,500 units 10/08/22 17:30 10/09/22 08:22 Heparin Sod 5,000 Unit/0.5 Ml Vial SQ 11/08/22 01:29 7,500 units TID LAURO Administration Hydromorphone HCl 1 mg 10/09/22 12:08 10/10/22 12:34 Hydromorphone Inj 1 Mg/Ml Syringe IV 10/21/22 13:11 1 mg Q4H PRN Administration Pain Losartan Potassium 50 mg 10/07/22 09:00 10/10/22 08:48 Losartan Potassium 50 Mg Tab PO 11/06/22 08:59 50 mg BID LAURO Administration Oxycodone HCl 10 mg 10/07/22 03:34 10/10/22 09:36 Oxycodone Hcl Ir 5 Mg Tab (Immediate Release) PO 10/21/22 03:33 10 mg Q6H PRN Administration Severe Pain (Scale 7, 8, 9,10) Polyethylene Glycol 17 gm 10/09/22 12:15 10/10/22 08:48 Polyethylene (Miralax) 17 Gm Pack PO 11/08/22 12:14 Not Given DAILY LAURO Senna/Docusate Sodium 1 tab 10/09/22 12:15 10/10/22 08:48 Docusate Sodium/Senna 50/8.6mg Tab PO 11/08/22 12:14 Not Given QAM LAURO NPO Date Last Intake of Fluids: 10/10/22 Time Last Intake of Fluids: 12:13 Date Last Intake of Solids: 10/09/22 Time Last Intake of Solids: 17:00 Past Medical History Medical History Aortic root dilatation 4.1cm per 06/2021 Echo B12 deficiency Chronic back pain Chronic hyponatremia Baseline sodium low 130s per chart review Dyslipidemia Borderline History of prostate cancer Dx 2019, s/p radiation therapy (completed 04/2020), no current issues Hypertension Lumbar radiculopathy Lumbar spinal stenosis 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 Sister Family hx colonic polyps Son No problems noted. Son No problems noted. Daughter No problems noted. 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 History of colonoscopy History of discectomy Lumbar discectomy/laminectomy (2009, 2014) History of herniorrhaphy Right inguinal hernia (1989) History of kyphoplasty T5 kyphoplasty with biopsy (09/16/14): Grade view 1, Glidescope#4, ETT 7.5 at [facility] History of lumbar fusion L3-S1 decompression/fusion (06/15/20): Grade 2 view, Glidescope#4, ETT 8.0 at [facility] History of prostate biopsy History of tonsillectomy As child Past Anesthesia History No Hx of Anesthesia Complications and No Family Hx of Anesthesia Complications easy glide #4 x1 in past History of PONV No Hx of PONV and History of PONV Social History Smoking Status: Never smoker tobacco type: smokeless tobacco Do You Dip or Chew Tobacco: No (Hx) Hx Alcohol Use: Yes Alcohol type: beer alcohol intake frequency: 0-2 drinks per day Hx Substance Use: No substance use type: does not use Physical Exam Vital Signs Last Vital Signs Temp 36.6 C 10/10/22 13:15 Pulse 58 L 10/10/22 13:38 Resp 16 10/10/22 13:15 BP 141/91 H 10/10/22 13:38 Pulse Ox 98 10/10/22 13:15 O2 Del Method Room Air 10/10/22 13:15 O2 Flow Rate 2 10/07/22 07:33 Constitutional + morbidly obese ENMT Mouth: + macroglossia and + small oral opening; no TMJ abnormality Thyromental Distance: > or= 3.5 Finger Breadths Mallampati Class: III Neck normal visual inspection, trachea midline, + limited neck extension and + facial hair Respiratory normal respiratory effort Auscultation: lungs clear to auscultation bilaterally Cardiovascular Rate/Rhythm: regular rate and regular rhythm Heart Sounds: no murmur Musculoskeletal Spine: normal cervical ROM Extremities: full ROM of extremities Neurologic moves all extremities Psychiatric Orientation: alert and oriented x 3 Testing Laboratory Results 10/09/22 05:20 10/09/22 05:20 Urine Color Yellow 10/07/22 01:05 Urine Appearance Clear (Clear) 10/07/22 01:05 Urine pH 5.0 (4.5-7.5) 10/07/22 01:05 Ur Specific Bernard 1.004 (1.000-1.030) 10/07/22 01:05 Urine Protein Negative (Negative) 10/07/22 01:05 Urine Glucose (UA) Negative (Negative) 10/07/22 01:05 Urine Ketones Negative (Negative) 10/07/22 01:05 Urine Nitrite Negative (Negative) 10/07/22 01:05 Ur Leukocyte Esterase Negative (Negative) 10/07/22 01:05 Electrocardiogram Date: 09/23/22 Findings: + SB @ (58 bpm) Chest X-Ray Date: 09/23/22 Findings: + NAD Echocardiogram Date: 06/28/21 LV cavity size is normal LV wall thickness is mildly increased LV wall motion is normal LV EF 60-64% There is no significant valvular disease A trivial right lateral loculated pericardial effusion of non hemodynamic significance is present
[2022-10-10] MEDS ORDERED: ceFAZolin 330 MG/ML 1 GM VIAL ONE (14:29)
[2022-10-10] MEDS ORDERED: BUPIVACAINE/EPINEPHRINE 0.25% 1:200,000 30 ML VIAL ONE (14:29)
[2022-10-10] MEDS ORDERED: ceFAZolin 3000MG/72.5 ML BAG IV ONE (14:30)
--- NOTE | 2022-10-10 15:11 | Anesthesia Procedure Note ---
Anesthesia Procedure Note Arterial Line Note Patient medical history, medications, allergies and vitals reviewed. Date of procedure: 10/10/22 Consent: Risk / Benefits Reviewed With: PT / POA / Parent / Guardian, Accepts Plan, Informed Consent Obtained and All Questions Answered Monitors attached: Blood Pressure, CO2, EKG and Pulse Oximetry Oxygen delivery method: Mask Time out completed: Yes Premedication: Midazolam (mg) (2) and Fentanyl (mcg) (100) Laterality: Right Location: Radial Hand hygeine: Alcohol based hand rub Equipment/Supplies: Cap, Mask, Sterile gloves and Sterile procedures used Skin prep: 70% alcohol Local medication: 1% Lidocaine (ml) Ultrasound used: Yes US equipment and supplies: Sterile Gel Attempts: 2 Procedure Summary: 20 gauge angiocath advanced until return of bright red blood. Catheter threaded using seldinger technique with return of pulsatile, bright red blood. Catheter secured with tape and covered with occlusive dressing. Waveform consistent with correct arterial placement. After placement, normal perfusion was observed distal to the site of catheter placement. Post-Procedure: Pt hemodynamically stable, Pt tolerates well and No complication Anesthesia Charges Arterial Line A Line Charges: 09945 [facility]
[2022-10-10] MEDS ORDERED: SURGICEL ABSORB HEMOSTAT 2IN X 14IN TOP ONE (16:07)
[2022-10-10] MEDS ORDERED: PROPOFOL IV EMULSION 10 MG/ML 20 ML VIAL IV ONE (16:09)
[2022-10-10] MEDS ORDERED: ePHEDrine sulfate 50 MG/ML AMP ONE (16:09)
[2022-10-10] MEDS ORDERED: PHENYLEPHRINE HCL 10 MG/ML VIAL ONE (16:09)
[2022-10-10] MEDS ORDERED: ROCURONIUM BROMIDE 10 MG/ML 5 ML VIAL IV ONE (16:09)
[2022-10-10] MEDS ORDERED: LIDOCAINE 2% 2 ML VIAL/AMP(20MG/ML) INFIL ONE (16:09)
[2022-10-10] MEDS ORDERED: FLOSEAL HEMOSTATIC MATRIX 10ML TOP ONE (16:11)
[2022-10-10] MEDS ORDERED: DEXAMETHASONE SOD INJ 4 MG/ML VIAL ONE (16:12)
[2022-10-10] MEDS ORDERED: SUGAMMADEX SODIUM 200 MG/2 ML VIAL IV ONE (16:46)
--- NOTE | 2022-10-10 16:53 | Operative Report ---
Post Operative Report Pre & Post Diagnosis Operation Date: 10/10/22 08:00 Pre-Op Diagnosis: FALL, L2 FRACTURE Post-Op Diagnosis: FALL, L2 FRACTURE I identified the patient and participated in the time-out.: Yes Procedure Operation Date: 10/10/22 08:00 Actual Procedures #1 removal of posterior instrumentation L2. #2 revision decompression L2-L3 #3 revision interbody fusion L2-L3. #4 posterior spinal fusion T11-L3. #5 placement posterior segmental instrumentation T11-L2. #6 placement of Spira 13 x 26 mm cage at L2-L3. #7 placement of infuse bone sponge from mass graft and posterior gutters and I factor interbody space. Surgeon Brad Dunbar, DO [employer] Margarita Hilton Estimated Blood Loss 500 Findings See Below The patient is 5 foot 7 weighing over 127 kg with a BMI in excess of 44. The patient's body habitus does contribute to significant technical difficulty requiring her deepest retractors longer instruments in order to perform his procedure. This at least 50% increased operative time. Specimens None Indications This is a 62-year-old male that presents status post multiple falls and the diagnosis of an L2 pedicle fracture at the perioperative site. This is creating severe radiculopathy with any motion patient was essentially bedbound secondary to the pain. He failed a course of nonoperative care was at risk for further neurologic decline and deterioration in his care to undergo emergent revision surgery. Description of Procedure Patient was met with identified informed consent obtained. Patient was then taken to the operative suite underwent patient placed in a prone position on the Aries table on top of the Lalo frame. All bony promises well-padded eyes inspected to ensure no external pressure placed on the. This point the thoracolumbar spine was prepped draped no sterile fashion. Sharp dissection with the assistance of Bovie cautery to form down to and exposing the lamina and transverse processes of T11 T12-L1 and instrumentation at L2 and the connections L3-L4. Then proceeded move the connectors and pedicle screws all 2 bilaterally. Obvious fracture of the L2 pedicle on the right was noted. I performed a revision foraminotomies on the right to remove all loose fragments of bony material and completely free of the exiting root. Pedicle screws were then placed in T10-11 T12-L1 bilaterally and L2 on the left. And then performed complete facetectomy L2-L3 on the left revision foraminotomies. Bilateral transforaminal approach on the left further discectomy L2-3 on the left was performed endplates guided to subcortically bone and a 13 x 26 mm Spira cage filled with I factor tapped the position. Proper size rods were then contoured locked into position bilaterally. The transverse processes of T11-T12 L1-L2 and L3 burred to subcortical bleeding bone. Infuse collagen sponge bone mass graft was placed in the posterior gutters. 15 round GABE drain inserted. The incision was then closed with 1 Vicryl fascia 2-0 Vicryl subcutaneously and 4 Monocryl for final skin closure. Steri-Strip sterile dressing placed. Patient awakened taken to PACU stable condition. Please note spinal cord monitoring was utilized at the procedure no changes noted. Lastly Margarita Hilton was present at the entire surgery involved the patient positioning complex portions of the surgery and final skin closure. I attest to the content of the Intraoperative Record and any orders documented therein. Any exceptions are noted below.
[2022-10-10] MEDS ORDERED: ONDANSETRON INJ 2 MG/ML 2 ML VIAL ONE (16:56)
[2022-10-10] MEDS: fentaNYL citrate PF 100 MCG/2 ML VIAL IV PRN ×4 (17:27→17:42)
[2022-10-10] MEDS: MoRPHine SULFATE 10 MG/ML CARP/VIAL IV PRN ×2 (17:44→17:49)
--- NOTE | 2022-10-10 18:27 | Anesthesiology Progress Note ---
Date of Service October 10, 2022 Anesthesia Post Procedure Vital Signs Vital Signs: Temp Pulse Pulse Pulse Resp BP BP 10/10/22 18:18 36.4 C L 81 18 132/86 10/10/22 18:10 87 18 118/86 10/10/22 18:00 36.5 C 78 12 125/86 10/10/22 17:50 87 12 117/81 10/10/22 17:40 79 12 120/94 10/10/22 17:30 87 15 130/92 10/10/22 17:20 91 H 12 140/97 10/10/22 17:12 36.0 C L 90 16 133/94 10/10/22 13:38 58 L 141/91 H 10/10/22 13:15 36.6 C 59 L 16 180/102 H 10/10/22 07:04 36.7 C 62 16 134/79 10/09/22 21:28 153/93 H 10/09/22 20:03 36.8 C 70 18 174/79 H Pulse Ox O2 Del Method O2 Flow Rate 10/10/22 18:18 98 Nasal Cannula 2 10/10/22 18:10 100 Nasal Cannula 2 10/10/22 18:00 98 Nasal Cannula 2 10/10/22 17:50 94 Room Air 10/10/22 17:40 95 Oxymask 3 10/10/22 17:30 100 Oxymask 4 10/10/22 17:20 100 Oxymask 4 10/10/22 17:12 100 Oxymask 6 10/10/22 13:38 10/10/22 13:15 98 Room Air 10/10/22 07:04 97 Room Air 10/09/22 21:28 10/09/22 20:03 97 Room Air Pain Intensity Lower Back: Pain Intensity: 10 Transfer of Care Handoff Completed per policy Notes Mental Status: alert / awake / arousable and participated in evaluation Patient Amnestic to Procedure: Yes Nausea / Vomiting: adequately controlled Pain: adequately controlled Airway Patency, RR, SpO2: stable & adequate BP & HR: stable & adequate Hydration State: stable & adequate Anesthetic Complications: no major complications apparent and Pt Satisfied with anesthetic care
--- NOTE | 2022-10-10 22:57 | Hospitalist Progress Note ---
Date of Service October 10, 2022 Assessment & Plan (1) Closed L2 vertebral fracture: Plan: Patient with L2 vertebral fracture at the top of his level of recent lumbar fusion after sustaining a fall to the ground With acute on chronic pain in the lower back and with right LE radiculopathy ongoing since previous surgery -Admit to medical/surgical unit for pain control -Consult Dr. Dunbar of orthopedic spine surgery -Continue home oxycodone, Tylenol, and add IV morphine as needed, add Flexeril 5 Mg p.o. 3 times daily as needed muscle spasm -Continue home gabapentin which was actually recently increased in dose for a total of 1500 mg daily-take 300 Mg in the morning and 600 at lunch and 600 at bedtime -PT/OT consults placed Patient is status post surgery, will resume chemical DVT prophylaxis in AM. Increased frequency of dilaudid (2) Acute low back pain: Plan: As noted above (3) Hyponatremia: Plan: Sodium low at 130 on admission, previously normal Could be secondary to SIADH from pain Check urine osmolality and urine sodium sodium improved. (4) Hypertension: Plan: Blood pressures are controlled -Continue home carvedilol, losartan -Hold home HCTZ for hyponatremia (5) B12 deficiency: Plan: Continue home B12 Plan DVT prophylaxis-SCDs ordered heparin Admission and Anticipated Discharge Date Admission Date: October 07, 2022 Subjective Patient reports being in pain after surgery. Review of Systems Review of Systems: All systems reviewed & are unremarkable except as noted in HPI & below Physical Exam Physical Exam: He sitting in a chair no acute alert and oriented x3 Strength intact bilateral lower extremity Constitutional: WD/WN, vitals as above + obese Neck: trachea midline, no thyromegaly Respiratory: normal respiratory effort, lungs clear to auscultation Cardiovascular: RRR, no murmur, no edema Chest (Breasts): Chest: normal inspection of chest Gastrointestinal (Abdomen): normal bowel sounds, soft, nontender, no hepatosplenomegaly Musculoskeletal: Extremities: extremities normal to inspection; no cyanosis and no clubbing Skin: no rashes, warm and dry Neurologic: moves all extremities and awake Psychiatric: A+Ox3, euthymic affect Lymphatic: no lymphedema Results & Data Results & Data Vital Signs (Past 12 Hours) Vital Signs Temp Pulse Pulse Pulse Resp BP BP 10/10/22 22:11 36.3 C L 84 16 124/79 07/31/23 19:15 36.4 C L 79 16 130/85 10/10/22 18:45 36.4 C L 81 18 116/69 10/10/22 18:18 36.4 C L 81 18 132/86 10/10/22 18:10 87 18 118/86 10/10/22 18:00 36.5 C 78 12 125/86 10/10/22 17:50 87 12 117/81 10/10/22 17:40 79 12 120/94 10/10/22 17:30 87 15 130/92 10/10/22 17:20 91 H 12 140/97 10/10/22 17:12 36.0 C L 90 16 133/94 10/10/22 13:38 58 L 141/91 H 10/10/22 13:15 36.6 C 59 L 16 180/102 H Pulse Ox O2 Del Method O2 Flow Rate 10/10/22 22:11 99 Nasal Cannula 2 10/10/22 19:15 99 Nasal Cannula 2 10/10/22 18:45 98 Nasal Cannula 2 10/10/22 18:18 98 Nasal Cannula 2 10/10/22 18:10 100 Nasal Cannula 2 10/10/22 18:00 98 Nasal Cannula 2 10/10/22 17:50 94 Room Air 10/10/22 17:40 95 Oxymask 3 10/10/22 17:30 100 Oxymask 4 10/10/22 17:20 100 Oxymask 4 10/10/22 17:12 100 Oxymask 6 10/10/22 13:38 10/10/22 13:15 98 Room Air PG Care Time/CCT Total # of Minutes Spent Total Time Spent with Patient: Total time spent is greater than 50% in coordination of care (as documented) at patient's floor/unit and/or counseling patient: Coding Level of Care Code 73974 SUB INP/OBS CARE MIN Diagnoses Closed L2 vertebral fracture S32.029A Encounter type: initial encounter Fracture morphology: unspecified fracture morphology Acute low back pain M54.50 Hyponatremia E87.1 Hypertension I10 B12 deficiency E53.8 (1) Closed L2 vertebral fracture Encounter type: initial encounter Fracture morphology: unspecified fracture morphology Qualified Code(s): S32.029A - Unspecified fracture of second lumbar vertebra, initial encounter for closed fracture
[2022-10-11] MEDS: HYDROmorphone INJ 1 MG/ML SYRINGE IV PRN ×2 (02:37→07:09)
[2022-10-11] MEDS: HEPARIN SOD 5,000 UNIT/0.5 ML VIAL SQ SCH ×3 (05:20→21:08)
[2022-10-11 06:10] LABS: Hematocrit (blood only) 33.8 % (42.0-52.0); Hemoglobin 11.7 g/dl (14.0-18.0); Mean Corpuscular Hemoglobin 34.7 pg (25.0-34.0); Mean Corpuscular Hgb Conc 34.6 g/dL (32.0-36.0); Mean Corpuscular Volume 100.3 fL (80.0-100.0); Mean Platelet Volume 11.2 fL (9.4-12.4); Platelet Count 151 K/uL (130-400); RDW Coefficient of Variation 12.2 % (11.5-14.5); RDW Standard Deviation 44.6 fL (36.4-46.3); Red Blood Count 3.37 M/uL (4.70-6.10); White Blood Count 13.17 K/ul (4.8-10.8)
[2022-10-11 06:29] LABS: BUN Creatinine Ratio 20.9 (10-20); Creatinine Clr Calc Pharmacy 111.3 ml/min; Est GFR (African American) 106.2 ml/min; Est GFR (Non-African American) 91.6 ml/min; Potassium 4.6 mmol/L (3.5-5.1)
--- NOTE | 2022-10-11 07:34 | Fluoroscopy Report ---
[place] thoracic spine 2V CLINICAL HISTORY: Decompression and fusion. L2 fracture. COMPARISON STUDY: Lumbar spine CT October 06, 2022. Thoracic spine CT October 07, 2022. FLUOROSCOPY TIME: 32.6 seconds. Ka, r: 29.26 mGy FLUOROSCOPIC IMAGES: 4 FINDINGS: Fluoroscopy was provided during revision L2-L3 decompression and interbody fusion as well a s T11-L3 posterior spinal fusion. Previous multilevel discectomy and lumbosacral fusion is partially imaged on this examination. Visualized portions of the hardware are intact. There is a left-sided ped icle screw at the L2 level. Otherwise, there are bilateral pedicle screws. IMPRESSION: Fluoroscopy provided during revision L2-L3 compression and interbody fusion as well as T 11-L3 posterior spinal fusion. ACT 112: Negative or not required by law. Electronically signed by: Som Tong M.D. 10/11/2022 7:31 AM
[2022-10-11] MEDS: LOSARTAN POTASSIUM 50 MG TAB PO SCH ×2 (08:44→21:09)
[2022-10-11] MEDS: DOCUSATE SODIUM/SENNA 50/8.6MG TAB PO SCH (08:44)
[2022-10-11] MEDS: POLYETHYLENE (MIRALAX) 17 GM PACK PO SCH (08:44)
[2022-10-11] MEDS: carvediloL 6.25 MG TAB PO SCH ×2 (08:44→21:11)
[2022-10-11] MEDS: GABAPENTIN 300 MG CAP PO SCH (08:44)
[2022-10-11] MEDS: CYANOCOBALAMIN (B-12) 500 MCG TABLET PO SCH (08:45)
[2022-10-11] MEDS: oxyCODONE HCL IR 5 MG TAB (IMMEDIATE RELEASE) PO PRN ×2 (11:23→16:25)
[2022-10-11] MEDS: GABAPENTIN 600 MG TAB PO SCH ×2 (11:26→21:09)
--- NOTE | 2022-10-11 12:27 | Orthopedic Progress Note ---
Date of Service October 11, 2022 Assessment & Plan (1) Closed L2 vertebral fracture: Plan: This time continue physical therapy consider rehab placement in the next few days. Admission and Anticipated Discharge Date Admission Date: October 07, 2022 Subjective Back pain controlled leg pain markedly improved Physical Exam Physical Exam: Patient is constricted testing. Appears comfortable. Results & Data Vital Signs (Past 12 Hours) Vital Signs Temp Pulse Resp BP Pulse Ox O2 Del Method O2 Flow Rate 10/11/22 11:00 36.7 C 85 16 135/75 99 Room Air 10/11/22 07:04 36.5 C 76 16 144/87 H 97 Room Air 10/11/22 02:36 36.4 C L 75 15 136/83 96 Nasal Cannula 2 Queries Orthopedic Spine Obesity: Yes (1) Closed L2 vertebral fracture Encounter type: initial encounter Fracture morphology: unspecified fracture morphology Qualified Code(s): S32.029A - Unspecified fracture of second lumbar vertebra, initial encounter for closed fracture
[2022-10-11] MEDS ORDERED: oxyCODONE HCL IR 5 MG TAB (IMMEDIATE RELEASE) PO PRN (15:54)
--- NOTE | 2022-10-11 21:48 | Hospitalist Progress Note ---
Date of Service October 11, 2022 Assessment & Plan (1) Closed L2 vertebral fracture: Plan: Patient with L2 vertebral fracture at the top of his level of recent lumbar fusion after sustaining a fall to the ground With acute on chronic pain in the lower back and with right LE radiculopathy ongoing since previous surgery -Admit to medical/surgical unit for pain control -Consult Dr. Dunbar of orthopedic spine surgery -Continue home oxycodone, Tylenol, and add IV morphine as needed, add Flexeril 5 Mg p.o. 3 times daily as needed muscle spasm -Continue home gabapentin which was actually recently increased in dose for a total of 1500 mg daily-take 300 Mg in the morning and 600 at lunch and 600 at bedtime -PT/OT consults placed Patient is status post surgery: resumed chemical DVT prophylaxis Increased frequency of dilaudid Pain is improved. (2) Acute low back pain: Plan: As noted above (3) Hyponatremia: Plan: Sodium low at 130 on admission, previously normal Could be secondary to SIADH from pain Check urine osmolality and urine sodium sodium improved. (4) Hypertension: Plan: Blood pressures are controlled -Continue home carvedilol, losartan -Hold home HCTZ for hyponatremia (5) B12 deficiency: Plan: Continue home B12 Plan DVT prophylaxis-SCDs ordered heparin Admission and Anticipated Discharge Date Admission Date: October 07, 2022 Subjective Patient reports having pain in right leg but it is improved from yesterday Review of Systems Review of Systems: All systems reviewed & are unremarkable except as noted in HPI & below Physical Exam Constitutional: WD/WN, vitals as above + obese Neck: trachea midline, no thyromegaly Respiratory: normal respiratory effort, lungs clear to auscultation Cardiovascular: RRR, no murmur, no edema Chest (Breasts): Chest: normal inspection of chest Gastrointestinal (Abdomen): normal bowel sounds, soft, nontender, no hepatosplenomegaly Musculoskeletal: Extremities: extremities normal to inspection; no cyanosis and no clubbing Skin: no rashes, warm and dry Neurologic: moves all extremities and awake Psychiatric: A+Ox3, euthymic affect Lymphatic: no lymphedema Results & Data Results & Data Vital Signs (Past 12 Hours) Vital Signs Temp Pulse Resp BP Pulse Ox O2 Del Method 10/11/22 21:10 36.8 C 71 16 143/81 H 95 Room Air 10/11/22 14:46 37 C 84 16 147/70 H 99 Room Air 10/11/22 11:00 36.7 C 85 16 135/75 99 Room Air PG Care Time/CCT Total # of Minutes Spent Total Time Spent with Patient: Total time spent is greater than 50% in coordination of care (as documented) at patient's floor/unit and/or counseling patient: Coding Level of Care Code 84435 SUB INP/OBS CARE 2/35MIN Diagnoses Closed L2 vertebral fracture S32.029A Encounter type: initial encounter Fracture morphology: unspecified fracture morphology Acute low back pain M54.50 Hyponatremia E87.1 Hypertension I10 B12 deficiency E53.8 (1) Closed L2 vertebral fracture Encounter type: initial encounter Fracture morphology: unspecified fracture morphology Qualified Code(s): S32.029A - Unspecified fracture of second lumbar vertebra, initial encounter for closed fracture
[2022-10-12] MEDS: oxyCODONE HCL IR 5 MG TAB (IMMEDIATE RELEASE) PO PRN ×5 (02:41→20:23)
[2022-10-12] MEDS: HEPARIN SOD 5,000 UNIT/0.5 ML VIAL SQ SCH ×3 (06:08→19:31)
[2022-10-12 06:48] LABS: Hematocrit (blood only) 32.2 % (42.0-52.0); Mean Corpuscular Hemoglobin 35.3 pg (25.0-34.0); Mean Corpuscular Hgb Conc 34.2 g/dL (32.0-36.0); Mean Corpuscular Volume 103.2 fL (80.0-100.0); Mean Platelet Volume 11.1 fL (9.4-12.4); Platelet Count 129 K/uL (130-400); RDW Coefficient of Variation 12.5 % (11.5-14.5); RDW Standard Deviation 47.5 fL (36.4-46.3); Red Blood Count 3.12 M/uL (4.70-6.10); White Blood Count 11.14 K/ul (4.8-10.8)
[2022-10-12 07:05] LABS: BUN Creatinine Ratio 23.2 (10-20); Calcium 9.8 mg/dl (8.6-10.3); Creatinine Clr Calc Pharmacy 96.7 ml/min; Est GFR (African American) 92.9 ml/min; Est GFR (Non-African American) 80.2 ml/min; Potassium 4.4 mmol/L (3.5-5.1)
[2022-10-12] MEDS: CYCLOBENZAPRINE HCL 5 MG TAB PO PRN (08:00)
[2022-10-12] MEDS: LOSARTAN POTASSIUM 50 MG TAB PO SCH ×2 (08:01→19:30)
[2022-10-12] MEDS: GABAPENTIN 300 MG CAP PO SCH (08:01)
[2022-10-12] MEDS: DOCUSATE SODIUM/SENNA 50/8.6MG TAB PO SCH (08:02)
[2022-10-12] MEDS: carvediloL 6.25 MG TAB PO SCH ×2 (08:02→19:29)
[2022-10-12] MEDS: CYANOCOBALAMIN (B-12) 500 MCG TABLET PO SCH (08:02)
[2022-10-12] MEDS: POLYETHYLENE (MIRALAX) 17 GM PACK PO SCH (08:10)
--- NOTE | 2022-10-12 09:55 | Orthopedic Progress Note ---
Date of Service October 12, 2022 Assessment & Plan (1) Closed L2 vertebral fracture: Plan: At this time continue physical therapy monitor GABE output anticipate discharge tomorrow. Admission and Anticipated Discharge Date Admission Date: October 07, 2022 Subjective Back pain controlled leg pain improving Physical Exam Physical Exam: Patient is up in the chair. Skin strength testing. Patient comfortable. Brace is in place. Results & Data Vital Signs (Past 12 Hours) Vital Signs Temp Pulse Resp BP Pulse Ox O2 Del Method 10/12/22 06:01 36.6 C 73 18 138/81 98 Room Air Queries Orthopedic Spine Obesity: Yes (1) Closed L2 vertebral fracture Encounter type: initial encounter Fracture morphology: unspecified fracture morphology Qualified Code(s): S32.029A - Unspecified fracture of second lumbar vertebra, initial encounter for closed fracture
[2022-10-12] MEDS: GABAPENTIN 600 MG TAB PO SCH ×2 (12:02→19:30)
--- NOTE | 2022-10-12 13:19 | XRay Report ---
XR lumbar spine 2-3V CLINICAL HISTORY: post op standing films COMPARISON STUDY: Lumbar spine CT October 06, 2022. Fluoroscopic images of the spine October 10, 2022. FINDINGS: A surgical drain is in place. Note is again made of an L2 fracture which was shown on CT of October 06, 2022. Interval posterior decompression is noted with revision L2-L3 discectomy. There is a left-sided pedicle screw at the L2 level. There are bilateral pedicle screws at the T11, T12, L1, L3, L4, L5 and S1 levels. Interconnecting rods are in place. A previous L4-L5 and L5-S1 discectomies wit h interbody spacer placement are noted. No unexpected radiopaque foreign bodies. IMPRESSION: Postoperative radiograph demonstrating thoracolumbar spine fusion and multilevel discect zenaida, as detailed above. Surgical drain in place. No unexpected radiopaque foreign bodies. Hardware in tact. ACT 112: Negative or not required by law. Electronically signed by: Som Tong M.D. 10/12/2022 1:18 PM
[2022-10-12 14:58] VITALS: O2SAT 97
--- NOTE | 2022-10-12 22:37 | Hospitalist Progress Note ---
Date of Service October 12, 2022 Assessment & Plan (1) Closed L2 vertebral fracture: Plan: Patient with L2 vertebral fracture at the top of his level of recent lumbar fusion after sustaining a fall to the ground With acute on chronic pain in the lower back and with right LE radiculopathy ongoing since previous surgery -Admit to medical/surgical unit for pain control -Consult Dr. Dunbar of orthopedic spine surgery -Continue home oxycodone, Tylenol, and add IV morphine as needed, add Flexeril 5 Mg p.o. 3 times daily as needed muscle spasm -Continue home gabapentin which was actually recently increased in dose for a total of 1500 mg daily-take 300 Mg in the morning and 600 at lunch and 600 at bedtime -PT/OT consults placed Patient is status post surgery: resumed chemical DVT prophylaxis Increased frequency of dilaudid Pain is improved. Patient agreeable to discharge on 10/13 if GABE drains less . (2) Acute low back pain: Plan: As noted above (3) Hyponatremia: Plan: Sodium low at 130 on admission, previously normal Could be secondary to SIADH from pain Check urine osmolality and urine sodium sodium improved. (4) Hypertension: Plan: Blood pressures are controlled -Continue home carvedilol, losartan -Hold home HCTZ for hyponatremia (5) B12 deficiency: Plan: Continue home B12 Plan DVT prophylaxis-SCDs ordered heparin Admission and Anticipated Discharge Date Admission Date: October 07, 2022 Subjective Patient reports no new symptoms.. Pain appears better controlled today. Review of Systems Review of Systems: All systems reviewed & are unremarkable except as noted in HPI & below Physical Exam Constitutional: WD/WN, vitals as above + obese Neck: trachea midline, no thyromegaly Respiratory: normal respiratory effort, lungs clear to auscultation Cardiovascular: RRR, no murmur, no edema Chest (Breasts): Chest: normal inspection of chest Gastrointestinal (Abdomen): normal bowel sounds, soft, nontender, no hepatosplenomegaly Musculoskeletal: Extremities: extremities normal to inspection; no cyanosis and no clubbing GABE continues to be draining sanguineous fluid Skin: no rashes, warm and dry Neurologic: moves all extremities and awake Psychiatric: A+Ox3, euthymic affect Lymphatic: no lymphedema Results & Data Results & Data Vital Signs (Past 12 Hours) Vital Signs Temp Pulse Resp BP Pulse Ox O2 Del Method 10/12/22 20:54 37.0 C 81 16 100/64 97 Room Air 10/12/22 19:27 36.7 C 83 18 159/74 H 97 Room Air 10/12/22 14:57 36.9 C 81 18 121/73 97 Room Air PG Care Time/CCT Total # of Minutes Spent Total Time Spent with Patient: Total time spent is greater than 50% in coordination of care (as documented) at patient's floor/unit and/or counseling patient: Coding Level of Care Code 89153 SUB INP/OBS CARE 2/35MIN Diagnoses Closed L2 vertebral fracture S32.029A Encounter type: initial encounter Fracture morphology: unspecified fracture morphology Acute low back pain M54.50 Hyponatremia E87.1 Hypertension I10 B12 deficiency E53.8 (1) Closed L2 vertebral fracture Encounter type: initial encounter Fracture morphology: unspecified fracture morphology Qualified Code(s): S32.029A - Unspecified fracture of second lumbar vertebra, initial encounter for closed fracture
[2022-10-13] MEDS: oxyCODONE HCL IR 5 MG TAB (IMMEDIATE RELEASE) PO PRN ×2 (05:20→09:36)
[2022-10-13] MEDS: HEPARIN SOD 5,000 UNIT/0.5 ML VIAL SQ SCH (05:20)
[2022-10-13 07:02] LABS: Hematocrit (blood only) 30.5 % (42.0-52.0); Hemoglobin 10.1 g/dl (14.0-18.0); Mean Corpuscular Hemoglobin 34.7 pg (25.0-34.0); Mean Corpuscular Hgb Conc 33.1 g/dL (32.0-36.0); Mean Corpuscular Volume 104.8 fL (80.0-100.0); Mean Platelet Volume 11.3 fL (9.4-12.4); Platelet Count 132 K/uL (130-400); RDW Coefficient of Variation 12.7 % (11.5-14.5); Red Blood Count 2.91 M/uL (4.70-6.10); White Blood Count 7.79 K/ul (4.8-10.8)
[2022-10-13 07:05] VITALS: BP 95/59; TEMP 97.9
[2022-10-13] MEDS: carvediloL 6.25 MG TAB PO SCH (08:30)
[2022-10-13] MEDS: GABAPENTIN 300 MG CAP PO SCH (08:30)
[2022-10-13] MEDS: CYANOCOBALAMIN (B-12) 500 MCG TABLET PO SCH (08:30)
[2022-10-13] MEDS: DOCUSATE SODIUM/SENNA 50/8.6MG TAB PO SCH (08:30)
[2022-10-13] MEDS: LOSARTAN POTASSIUM 50 MG TAB PO SCH (08:30)
[2022-10-13] MEDS: POLYETHYLENE (MIRALAX) 17 GM PACK PO SCH (08:31)
--- NOTE | 2022-10-13 08:48 | Discharge Summary ---
Date of Service October 13, 2022 Admission HPI Per Admitting Provider This patient is a 62-year-old male with history of HTN, B12 deficiency, lumbar spinal stenosis and neurogenic claudication s/p L2-L3 decompression and fusion with hardware placement on 09/19, followed by return to the OR on 09/23 for debridement and washout with drainage of seroma performed for persistent right lower extremity radiculopathy. He presents to the ER today with severe lower back pain after a fall. He got out of his truck and his legs sort of gave out and he was able to hold onto the truck door and lower himself to the ground and landed on his bottom. He had worsening pain both in the lower back and down his right thigh like he has been having the last 2 weeks. Denies loss of bowel or bladder, saddle anesthesia, fevers, chills. He received IV morphine x2 doses and IV Tylenol in the ER but continued to have significant pain. He had a CT of the lumbar spine which showed an acute 2 column superior plate fracture of the L2 vertebral body with 9% loss of vertebral body height. He will be admitted for pain control and consultation with his orthopedic spine surgeon, Dr. Dunbar. . Principal Diagnosis L2 pedicle fracture with radiculopathy Discharge Data Allergies Allergy/AdvReac Type Severity Reaction Status Date / Time No Known Allergies Allergy Verified 10/06/22 22:47 Consultations 10/07/22 00:32 ED Decision to Admit Stat 10/07/22 03:34 Consult Orthopedic Surgery Routine Procedures Performed Operation Date: 10/10/22 08:00 Actual Procedures p T11-L3 Fusion(Bilateral) - Brad Dunbar, Ordered Studies 10/06/22 21:35 CT lumbar spine wo con Stat 10/07/22 13:16 CT thoracic spine wo con Urgent 10/10/22 13:30 [place] thoracic spine 2V Routine Hospital Course (1) Closed L2 vertebral fracture: Patient was admitted with worsening leg pain and propagation with L2 pedicle fracture. He subsequently underwent revision decompression and fusion to stabilize across the fracture site. He tolerated this well and was unable to undergo physical therapy the next day. He progressed appropriately. GABE drain decreased probably. Subsequently discharged home with home health. Discharge orders instructions from the chart for further review. Total Time Total Time Spent Total Time Spent (In Minutes): 20 minutes Discharge Plan Discharge Items Patient Disposition: Home - Home Health Services Reason For Visit: FALL, L2 FRACTURE Discharge Diagnosis: L2 fracture Condition on Discharge: Good Activity: As commented below Non-emergency contact: Primary Care Provider Call non-emergency contact if: you have any medication questions Follow-up/Referrals: Arnie Kim DO [Primary Care Provider] - Diet: Regular Addtl Attending Provider Instructions: ACTIVITY RECOMMENDATIONS: SELF CARE INSTRUCTIONS AFTER THORACIC/LUMBAR FUSIONS 1. You may walk to your tolerance. It is good exercise for your legs and back. Expect some back and intermittent leg aches and pains. 2. You may perform "counter-top" level activities (make a sandwich, casandra with a project, etc.). 3. No bending or lifting of more than 10 pounds or back twisting of any nature (roll like a log when turning in bed). 4. You may ride in a car for 20-30 minutes at a time. No driving until after your first visit with your doctor. 5. Frequent changes of position and restricting sitting to 30 minutes at a time will help limit the amount of back spasms and stiffness you may experience. 6. You may discontinue the use of ambulatory aids (cane, crutches, etc.) once your strength and confidence allow. 7. You may creosoting engineer the shower and let water strike your incision when you arrive home at least once daily. Do not take a tub bath, sit in a hot tub or go into a swimming pool until after your first recheck in the office. SPECIAL CARE INSTRUCTIONS: VERY IMPORTANT TO READ AND REVIEW A. Your surgical incision has been closed with a cosmetic suture under the skin that will dissolve in about 6 weeks. In 14 days, you can use a pair of clean scissors and cut the suture that is left outside of the skin at the ends of your incision. 1. The small skin tapes can be removed 7 days after surgery if they have not fallen off by that point. 2. You may keep the wound open to air as much as possible to promote healing after post-op day number 5 unless told otherwise by your doctor. 3. If you think the wound looks like it is becoming infected (redness or worsening drainage) and/or you are experiencing fever, chill or worsening back pain and muscle spasms, contact the office so that we may evaluate you as soon as possible. B. Complications are uncommon, but please contact us if you have any signs or symptoms of: 1. wound infection (fever higher than 102.5 degrees F, redness, separation of wound, drainage, or increasing pain from the incision) 2. blood clots in legs (pain, swelling, redness and warmth in legs) 3. urinary tract infection (fever higher than 102.5 degrees F, burning upon urination or increased frequency of urination) 4. nerve problems (inability to walk on your toes or heels, numbness, loss of bowel or bladder control) 5. any other symptoms that concern you C. Please call the office at if you have any concerns or questions about your operation or recovery. D. No smoking! Smoking drastically decreases the chance of a solid fusion. E. Do not take any anti-inflammatory medications (Indocin, Advil, Motrin, Aspirin, Naprosyn, etc.) as these may inhibit the chance of a solid fusion. Tylenol is okay to take for pain. MANAGING PAIN AFTER SPINAL SURGERY 1. Narcotic medication is intended for short-term use and will be provided for surgical pain. Surgical pain usually lasts for a period of 4-6 weeks. Narcotic medication includes Percocet, Vicodin, Darvocet, Tylenol #3 or Lortab. 2. Longer-term pain is more appropriately treated with non-narcotic medication such as Tylenol ES. 3. Muscle spasm is not appropriately treated with narcotics. Muscle relaxers such as Soma, Flexeril or Skelaxin can be used along with Tylenol ES. 4. Remember that we all live with some "aches and pains". This is not unusual or uncommon after an injury or as we get older. a. Back pain is expected and may include muscle spasms for 4 to 6 weeks after surgery. The pain should gradually improve. If the pain worsens for no apparent reason, please contact the office. b. Intermittent leg pain may also be experienced and should not be concerned about unless it worsens for no apparent reason. If so, please contact the office. 5. We will provide appropriate medication within the normal guidelines of their prescribed use. We will also be very cautious and aware of potential abuse and extended duration of patients' medication needs. a. Pain medications are for your comfort and to assist with sleep and rest so that the tissue can heal. They are not provided in order to return to normal activity and should not be used through the day. To do so or worsening pain at night can result from ongoing tissue damage and development of tolerance to the prescribed medicine. 6. Please allow 2-3 days to process refills. Prescriptions will not be mailed but must be picked up at the office. FOLLOW UP VISIT: Keep your scheduled follow-up appointment. Any questions, please call the office at . Pending Studies at Discharge: No Stand-Alone Forms: [facility], Smoking Cessation Medications and DC Order Prescriptions: New oxycodone 5 mg tablet 5 mg PO Q6H PRN (Reason: pain) Qty: 30 0RF Continued aspirin 81 mg tablet,delayed release (DR/EC) 81 mg PO QAM carvedilol 6.25 mg tablet 6.25 mg PO BID losartan 50 mg tablet 50 mg PO BID hydrochlorothiazide 25 mg tablet 12.5 mg PO QAM gabapentin 300 mg capsule 600 mg PO QDL Rx Instructions: NOON gabapentin 300 mg capsule 300 mg PO BID Rx Instructions: 300mg (1 tab)morning, 600mg (2 tab) afternoon, 300mg (1 tab) evening oxycodone 10 mg tablet 10 mg PO Q6 PRN (Reason: Pain) tramadol 50 mg tablet 50 mg PO Q6 PRN (Reason: Moderate Pain (Scale Score 5-6)) cyanocobalamin (vitamin B-12) 1,000 mcg capsule 1,000 mcg PO DAILY Qty: 30 0RF oxycodone 5 mg tablet 5 mg PO Q6H PRN (Reason: pain) Qty: 30 0RF Discharge Orders: Discharge Order (Routine); Ordered 10/13/22 Ordered By: Brad Dunbar Admission Data Admit Date/Time: 10/07/22 01:58 Attending Provider: Christofer John Admit Provider: Callie Guerrero Primary Care Provider: Arnie Kim Other Providers: Callie Guerrero ; Brad Dunbar ; [facility]
[2022-10-13 08:58] VITALS: PULSE 87
--- NOTE | 2022-10-13 15:20 | Communication Note ---
Date of Service: October 13, 2022 Patient was seen by surgeon, Dr. Alfred Dunbar, and deemed stable for discharge on this date. Due to time history patient did receive discharge instructions and discharge summary from Dr. Dunbar and I did not have a chance to visit with the patient before being discharged normal OB visit or pill on this date for myself
== END 2022-10-13 12:26 | disposition home health service (06) | DRG 454 ==
LOC: ED 20:48 → SUATTDRO 10-07 01:58 → EDINP 10-07 01:58 → 3E 10-07 03:35

== ENCOUNTER 2023-10-17 21:13 | Inpatient (IN) ==
--- NOTE | 2023-10-17 21:42 | Emergency Department Note ---
Impression & Plan Thoracic vertebral fracture, Fracture of lumbar spine, Ambulatory dysfunction ED Provider Note CHIEF COMPLAINT: Back injury HISTORY OF PRESENTING ILLNESS: This 63-year-old male patient presents to the emergency department with his for evaluation of back pain. The patient states that he injured his middle and lower back this morning around 11:30 AM when his 3.5 year old grandson jumped on his back. The pain is in the middle to lower back mostly in the center, but radiates to both sides. No radiation of the pain into his legs. The patient has had 10 out of 10 pain since that time. He has had an extensive back surgery history with Dr. Dunbar. Denies any loss of control of their bowel or bladder functions. Denies any numbness of their legs. Denies weakness of their legs other than from the pain. Denies any saddle paresthesias. Denies abdominal pain, nausea, or vomiting. Denies urinary symptoms or changes in their BMs. He is not on blood thinners - only 81 mg aspirin. REVIEW OF SYSTEMS: See HPI for pertinent positives and pertinent negatives. ALLERGIES: NKDA MEDICATIONS: See below PAST MEDICAL HISTORY: See below PHYSICAL EXAM: VITALS: Vitals are noted on the nurse's note and reviewed by myself. GENERAL: Appears in pain, but non toxic in appearance and in no acute distress. Non-diaphoretic. SKIN: The skin of the back was without obvious rashes, erythema, edema, or bruising. HEAD: Normocephalic atraumatic. EYES: Pupils equal round and reactive to light and accommodation. The Extraocular movements intact. NECK: Supple without nuchal rigidity. No cervical spine tenderness. No paraspinous muscle tenderness. No lymphadenopathy. HEART: Regular rate and rhythm without murmurs gallops or rubs. LUNGS: Clear to auscultation bilaterally without wheezes, rales or rhonchi. ABDOMEN: Positive bowel sounds x 4. Normal tympanic percussion. Soft, nontender, without masses or organomegaly. Ackerman sign negative. MUSCULOSKELETAL: No muscle atrophy, erythema, or edema noted of the back. There is tenderness over the entire lumbar spinous processes as well as the mid to lower thoracic spinous processes. There is tenderness over the paraspinous muscles of the thoracic and lumbar spine bilaterally. There are no muscle spasms present. The patient is slow to move around with maximum tenderness with flexion of the spine. Negative straight leg raise test bilaterally. Strength 5/5 and equal in the bilateral upper and lower extremities. Peripheral pulses 2+ and equal in the bilateral upper and lower extremities. NEURO: Patient was alert and oriented to person place and time. Normal sensation to light and sharp touch. DIFFERENTIAL DIAGNOSIS: Differential diagnosis includes fracture, subluxation, cauda equina syndrome, cord compression, disc herniation, muscle spasm, lumbar strain, epidural abscess, discitis, malignancy, transverse myelitis, urinary tract infection, colitis, diverticulitis, kidney stone, among others. ED COURSE AND MEDICAL DECISION MAKING: HISTORY FROM INDEPENDENT HISTORIAN: Additional history obtained from the patient's MEDICATIONS GIVEN: Morphine 6 mg IM, Zofran 4 mg ODT. Lidoderm 5% patch. Toradol 15 mg IM. Dilaudid 0.5 mg IM. 500 mL normal saline solution bolus. Dilaudid 0.5 mg IV. INTERPRETATION OF LABS: I interpreted the labs with full lab results as below in the lab section of this note. Pertinent lab results discussed in the MDM section below. INTERPRETATION OF IMAGING: Imaging studies were interpreted by myself and read by radiology as per the imaging section of this note. CT scan of the lumbar spine without contrast showed a superior endplate compression deformity at L2 which is age-indeterminate, but favored to be chronic. The patient states that this is chronic. Otherwise no acute fracture or hardware complication. CT scan of the thoracic spine without contrast shows an acute horizontal fracture extending through the anterior osteophyte at T9/T10. This fracture involves the T10 anterior superior endplate and extends into the T9/T10 disc space. No posterior cortical buckling or significant vertebral height loss. No fracture of the posterior elements. No malalignment. CONSULTATIONS: On-call hospitalist [facility] SUMMARY: I examined the patient. The patient has an extensive surgical history on his back, but states around 11:30 AM this morning his grandson jumped on his back causing significant increased pain in his middle to lower back. CT scan of the lumbar spine without contrast showed a superior endplate compression deformity at L2 which is age-indeterminate, but favored to be chronic. The patient states that he believes this fracture is chronic. Otherwise no acute fracture or hardware complication. CT scan of the thoracic spine without contrast shows an acute horizontal fracture extending through the anterior osteophyte at T9/T10. This fracture involves the T10 anterior superior endplate and extends into the T9/T10 disc space. No posterior cortical buckling or significant vertebral height loss. No fracture of the posterior elements. No malalignment. I do not suspect emergent etiology such as conus medullaris syndrome, cauda equina syndrome, epidural abscess, or epidural hematoma. I do not feel the patient requires an emergent MRI. The patient required multiple doses of pain medication as above. I had a meaningful discussion about this patient with Dr. Gonzales who agrees with my assessment and the treatment plan. While the patient's thoracic spine fracture does not appear to be surgical at this time, the patient is afraid he will not be able to manage at home. The patient has 10 stairs that he needs to go up to get into his house. The patient was given an ambulatory trial with a walker, but he had difficulty with ambulation due to the pain in his back. Therefore, we do not feel the patient can safely be discharged home at this time. An IV lock was placed and labs were drawn. White blood cell count normal at 10.35. Hemoglobin low at 13.6. Platelet count normal at 189. Sodium low at 121, chloride 86, and glucose 130 with the remainder of the BMP normal. I spoke with the on-call hospitalist who agreed to admit the patient for further evaluation and treatment. Please refer to their dictation for further details. The patient's care was transferred in stable condition. DIAGNOSIS: T9/T10 thoracic spine fracture Likely chronic L2 vertebral fracture Ambulatory dysfunction due to the back pain Past Med/Surg History Problem List (Updated 10/18/23 @ 03:33 by Chantell Campos PA-C) Ambulatory dysfunction (Acute) Thoracic vertebral fracture (Acute) Elevated fasting glucose Right flank discomfort B12 deficiency Closed L2 vertebral fracture (Acute) Acute low back pain (Acute) Trochanteric bursitis of right hip (Acute) Fracture of lumbar spine (Acute) Post surgical complication (Acute) Prostate cancer (Chronic 03/21/19) Colon cancer screening Tubular adenoma (09/18/19) recheck 3 years, Dr. Blanc Lumbar stenosis Neurogenic claudication due to lumbar spinal stenosis Perianal abscess Anorectal fistula Hyponatremia Neuropathy (Chronic) Feet Skin lesion of back Lumbar spinal stenosis 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 fusion procedure Lumbar radiculopathy Aortic root dilatation 4.1cm per 06/2021 Echo Hypertension Medical History B12 deficiency Chronic hyponatremia Baseline sodium low 130s per chart review Lumbar spinal stenosis 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 fusion procedure Lumbar radiculopathy Neuropathy Feet Aortic root dilatation 4.1cm per 06/2021 Echo Dyslipidemia Borderline History of prostate cancer Dx 2019, s/p radiation therapy (completed 04/2020), no current issues Obesity Chronic back pain Hypertension Surgical History History of lumbar fusion L3-S1 decompression/fusion (06/15/20): Grade 2 view, Glidescope#4, ETT 8.0 at [facility] History of prostate biopsy H/O excision of mass Excision of Gluteal Cyst (10/2018) History of kyphoplasty T5 kyphoplasty with biopsy (09/16/14): Grade view 1, Glidescope#4, ETT 7.5 at [facility] H/O elbow surgery Right elbow tendon repair (2006) History of discectomy Lumbar discectomy/laminectomy (2009, 2014) History of colonoscopy History of herniorrhaphy Right inguinal hernia (1989) H/O retained foreign body fully removed 1994 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 Sister Family hx colonic polyps Son No problems noted. Son No problems noted. Daughter No problems noted. Other No family history of adverse response to anesthesia Denies family history of Ovarian cancer Myocardial infarction Breast cancer Colorectal cancer Social History Smoking Status: Never smoker Second Hand Exposure: No; Do You Dip or Chew Tobacco: No (Hx); Hx Alcohol Use: Yes Alcohol type: beer Alcohol Intake Frequency: 2-3 x/Week Hx Substance Use: No Preferred Language: Wolof Communication Ability: Effective Visual Impairment: No Limitations Hearing Ability: Normal Management Recruiter Required: No Beliefs That Will Affect Care: None marital status: Current Living Situation: Spouse current occupational status: retired 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 [employer] Feels Safe at Home: Yes Diet: regular caffeine: Yes during the past year weight has: remained stable Dental Care, Regularly: No Physical Activity Frequency: 1-2 Times per Week Seatbelt Use: sometimes Sunscreen Use: No Assistive Devices: Walker Allergies Allergies Allergy/AdvReac Type Severity Reaction Status Date / Time No Known Allergies Allergy Verified 10/17/23 22:39 Home Meds Home Medications Medication Instructions Recorded Confirmed aspirin 81 mg tablet,delayed 81 mg PO QAM 09/28/18 10/17/23 release Previous Rx's Medication Instructions Recorded cyanocobalamin (vitamin B-12) 1,000 mcg PO DAILY #30 caps 09/25/22 1,000 mcg capsule carvedilol 6.25 mg tablet 6.25 mg PO BID #180 tabs 05/19/23 hydrochlorothiazide 25 mg tablet 12.5 mg (1/2 x 25 mg) PO QAM #45 05/19/23 tabs losartan 50 mg tablet 50 mg PO BID #180 tabs 05/19/23 gabapentin 300 mg capsule 600 mg (2 x 300 mg) PO TID 90 days 10/05/23 #540 caps Results & Data (ED) Vital Signs Vital Signs - 24 hr 10/17/23 21:14 10/17/23 23:19 10/18/23 00:41 Temperature 36.8 C Temperature Source Temporal Artery Scan Pulse Rate 74 Pulse Rate [Finger] 68 59 L Respiratory Rate 22 17 16 Respiratory Effort / Characteristics Non-Labored Spontaneous Non-Labored Spontaneous Respiratory Depth Normal Normal Respiratory Pattern Regular Regular Blood Pressure 111/66 Blood Pressure [Right Arm] 133/71 156/81 H Blood Pressure Mean 81 Blood Pressure Mean [Right Arm] 91 106 Pulse Oximetry 96 92 93 Oxygen Delivery Method Room Air Room Air Room Air Sepsis Recent Fever Within 48 Hours No Sepsis New/Unexplained Change in Mental Status No Sepsis Action Taken by Nursing No Action Required 10/18/23 02:00 10/18/23 02:32 Temperature Temperature Source Pulse Rate 56 L Pulse Rate [Finger] 60 Respiratory Rate 19 Respiratory Effort / Characteristics Respiratory Depth Respiratory Pattern Blood Pressure Blood Pressure [Right Arm] 117/56 L Blood Pressure Mean Blood Pressure Mean [Right Arm] 76 Pulse Oximetry 96 Oxygen Delivery Method Sepsis Recent Fever Within 48 Hours Sepsis New/Unexplained Change in Mental Status Sepsis Action Taken by Nursing Laboratory Data 10/18/23 02:25 10/18/23 02:25 Lab Results 10/18/23 Range/Units 02:25 WBC 10.35 (4.8-10.8) K/ul RBC 3.82 L (4.70-6.10) M/uL Hgb 13.6 L (14.0-18.0) g/dl Hct 37.2 L (42.0-52.0) % MCV 97.4 (80.0-100.0) fL MCH 35.6 H (25.0-34.0) pg MCHC 36.6 H (32.0-36.0) g/dL RDW Std Deviation 44.8 (36.4-46.3) fL RDW Coeff of Jhon 12.6 (11.5-14.5) % Plt Count 189 (130-400) K/uL MPV 10.0 (9.4-12.4) fL Immature Gran % (Auto) 0.4 % Neut % (Auto) 83.9 % Lymph % (Auto) 8.0 % Pratt % (Auto) 6.5 % Eos % (Auto) 0.7 % Baso % (Auto) 0.5 % Neut # (Auto) 8.69 H (1.40-6.50) K/uL Lymph # (Auto) 0.83 L (1.20-3.40) K/uL Pratt # (Auto) 0.67 H (0.11-0.59) K/uL Eos # (Auto) 0.07 (0.00-0.50) K/uL Baso # (Auto) 0.05 (0.00-0.20) K/uL Immature Gran # (Auto) 0.04 (0.01-0.20) K/uL Sodium 121 L (136-145) mmol/L Potassium 3.6 (3.5-5.1) mmol/L Chloride 86 L (98-107) mmol/L Carbon Dioxide 24 (21-32) mmol/L Anion Gap 11 (3-11) BUN 11 (6-23) mg/dl Creatinine 0.77 (0.6-1.4) mg/dl Est Cr Clr Drug Dosing 128.8 ml/min Est GFR ( Amer) 110.4 ml/min Est GFR (Non-Af Amer) 95.2 ml/min BUN/Creatinine Ratio 14.3 (10-20) Glucose 130 H (70-99(Fasting)) mg/dl Calcium 9.3 (8.6-10.3) mg/dl Administered Medications Lactated Ringer's (Lr) 1,000 mls @ 80 mls/hr IV .[id number] LAURO Stop: 10/18/23 15:14 Last Admin: 10/18/23 02:48 Dose: 80 mls/hr Documented By: MG Discontinued Medications Gabapentin (Gabapentin 600 Mg Tab) 600 mg PO NOW STA Stop: 10/18/23 02:33 Last Admin: 10/18/23 02:46 Dose: 600 mg Documented By: MG Hydromorphone HCl (Hydromorphone Inj 0.5 Mg/0.5 Ml Syr) 0.5 mg IM NOW STA Stop: 10/17/23 23:49 Last Admin: 10/17/23 23:55 Dose: 0.5 mg Documented By: MG Hydromorphone HCl (Hydromorphone Inj 0.5 Mg/0.5 Ml Syr) 0.5 mg IV NOW STA Stop: 10/18/23 01:52 Last Admin: 10/18/23 02:28 Dose: 0.5 mg Documented By: MG Sodium Chloride (Nss) 500 mls @ 999 mls/hr IV .Q31M ONE Stop: 10/18/23 02:21 Last Infusion: 10/18/23 03:01 Dose: Infused Documented By: Admin: 10/18/23 02:28 Dose: 999 mls/hr Documented By: MG Ketorolac Tromethamine (Ketorolac Tromethamine 15 Mg/Ml Vial) 15 mg IM NOW STA Stop: 10/17/23 23:29 Last Admin: 10/17/23 23:39 Dose: 15 mg Documented By: MG Lidocaine (Lidocaine 5% 1 Patch) 1 patch TD NOW STA Stop: 10/17/23 21:52 Last Admin: 10/17/23 22:03 Dose: 1 patch [place] [facility] [place] Sulfate (Morphine Sulfate 10 Mg/Ml Carp/Vial) 6 mg IM NOW STA Stop: 10/17/23 21:52 Last Admin: 10/17/23 21:59 Dose: 6 mg [place]ed By: [facility] [place] Ondansetron HCl (Ondansetron 4 Mg Od Tab) 4 mg PO NOW STA Stop: 10/17/23 21:52 Last Admin: 10/17/23 22:03 Dose: 4 mg Documented By: [facility] [place] Data Radiologist's Impression: Lumbar Spine CT 10/17/23 21:51 Exam(s): CT L SPINE EXAM: CT Lumbar Spine Without Intravenous Contrast CLINICAL HISTORY: Reason for exam: Trauma. TECHNIQUE: Axial computed tomography images of the lumbar spine without intravenous contrast. CTDI is 49 mGy and DLP is 2775 mGy-cm. Automated exposure control was utilized for the study. A dose lowering technique was utilized adhering to the principles of ALARA. COMPARISON: No relevant prior studies available. FINDINGS: Artifacts: Thoracolumbar fusion construct is intact. Multilevel degenerative disc disease. Multiple disc spacers in place. No hardware complication. Multilevel decompression. Artifact related to the hardware. No grossly evident high-grade canal stenosis. Vertebrae: Superior endplate compression deformity at L2 is age indeterminate. Favored chronic but cannot say definitively without a comparison. Soft tissues: No acute abnormality. Cortical cysts in the kidneys bilaterally. IMPRESSION: Superior endplate compression deformity at L2 is age indeterminate. Favored chronic but cannot say definitively without a comparison. Otherwise no acute fracture or hardware complication. Electronically signed by: Dilan Ramsay MD 10/18/23 00:[address] 10/17/23 21:51 Exam(s): CT T SPINE EXAM: CT Thoracic Spine Without Intravenous Contrast CLINICAL HISTORY: Reason for exam: Trauma. TECHNIQUE: Axial computed tomography images of the thoracic spine without intravenous contrast. CTDI is 49 mGy and DLP is 2775 mGy-cm. Automated exposure control was utilized for the study. A dose lowering technique was utilized adhering to the principles of ALARA. COMPARISON: No relevant prior studies available. FINDINGS: Vertebrae: Flowing ventral osteophytes throughout the thoracic spine. Acute horizontal fracture extending through the anterior osteophyte at T9- 10. This fracture involves the T10 anterior superior endplate and extends into the T9-10 disc space. No posterior cortical buckling or significant vertebral height loss. No fracture of the posterior elements or malalignment. Status post vertebral augmentation at T5. Postsurgical changes at T11-12 with intact hardware. No epidural collection or spinal canal stenosis. Soft tissues: Unremarkable. IMPRESSION: Acute horizontal fracture extending through the anterior osteophyte at T9- 10. This fracture involves the T10 anterior superior endplate and extends into the T9-10 disc space. No posterior cortical buckling or significant vertebral height loss. No fracture of the posterior elements. No malalignment. Electronically signed by: Dilan Ramsay MD 10/18/23 00:29 AM Discharge Plan Visit Data Chief Complaint: Back Injury/Pain Stated Complaint: BACK INJURY ED Provider: Alyx Gonzales ED Midlevel Provider: Chantell Campos Discharge Problem: Thoracic vertebral fracture, Fracture of lumbar spine, Ambulatory dysfunction Patient Disposition: Admitted As Inpatient Condition: Good Forms [facility] Prescriptions: No Action carvedilol 6.25 mg tablet 6.25 mg PO BID Qty: 180 3RF hydrochlorothiazide 25 mg tablet 12.5 mg PO QAM Qty: 45 3RF losartan 50 mg tablet 50 mg PO BID Qty: 180 3RF gabapentin 300 mg capsule 600 mg PO TID 90 Days Qty: 540 1RF aspirin 81 mg tablet,delayed release (DR/EC) 81 mg PO QAM cyanocobalamin (vitamin B-12) 1,000 mcg capsule 1,000 mcg PO DAILY Qty: 30 0RF Referrals Referrals: Arnie Kim DO [Primary Care Provider] - Discharge Problem: Thoracic vertebral fracture Qualifiers: Encounter type: initial encounter Thoracic vertebra fracture level: T9 Fracture type: closed Fracture morphology: unspecified fracture morphology Qualified Code(s): S22.079A - Unspecified fracture of T9-T10 vertebra, initial encounter for closed fracture Fracture of lumbar spine Qualifiers: Encounter type: initial encounter Lumbar vertebra fracture level: L2 Fracture type: closed Fracture morphology: unspecified fracture morphology Qualified Code(s): S32.029A - Unspecified fracture of second lumbar vertebra, initial encounter for closed fracture
[2023-10-17] MEDS: MoRPHine SULFATE 10 MG/ML CARP/VIAL IM STA (21:59)
[2023-10-17] MEDS: LIDOCAINE 5% 1 PATCH TD STA (22:03)
[2023-10-17] MEDS: ONDANSETRON 4 MG OD TAB PO STA (22:03)
[2023-10-17] MEDS: KETOROLAC TROMETHAMINE 15 MG/ML VIAL IM STA (23:39)
[2023-10-17] MEDS: HYDROmorphone INJ 0.5 MG/0.5 ML SYR IM STA (23:55)
--- NOTE | 2023-10-18 00:31 | CT Scan Report ---
Exam(s): CT T SPINE EXAM: CT Thoracic Spine Without Intravenous Contrast CLINICAL HISTORY: Reason for exam: Trauma. TECHNIQUE: Axial computed tomography images of the thoracic spine without intravenous contrast. CTDI is 49 mGy and DLP is 2775 mGy-cm. Automated exposure control was utilized for the study. A dose lowering technique was utilized adhering to the principles of ALARA. COMPARISON: No relevant prior studies available. FINDINGS: Vertebrae: Flowing ventral osteophytes throughout the thoracic spine. Acute horizontal fracture extending through the anterior osteophyte at T9- 10. This fracture involves the T10 anterior superior endplate and extends into the T9-10 disc space. No posterior cortical buckling or significant vertebral height loss. No fracture of the posterior elements or malalignment. Status post vertebral augmentation at T5. Postsurgical changes at T11-12 with intact hardware. No epidural collection or spinal canal stenosis. Soft tissues: Unremarkable. IMPRESSION: Acute horizontal fracture extending through the anterior osteophyte at T9- 10. This fracture involves the T10 anterior superior endplate and extends into the T9-10 disc space. No posterior cortical buckling or significant vertebral height loss. No fracture of the posterior elements. No malalignment. Electronically signed by: Dilan Ramsay MD 10/18/23 00:29 AM
--- NOTE | 2023-10-18 00:35 | CT Scan Report ---
Exam(s): CT L SPINE EXAM: CT Lumbar Spine Without Intravenous Contrast CLINICAL HISTORY: Reason for exam: Trauma. TECHNIQUE: Axial computed tomography images of the lumbar spine without intravenous contrast. CTDI is 49 mGy and DLP is 2775 mGy-cm. Automated exposure control was utilized for the study. A dose lowering technique was utilized adhering to the principles of ALARA. COMPARISON: No relevant prior studies available. FINDINGS: Artifacts: Thoracolumbar fusion construct is intact. Multilevel degenerative disc disease. Multiple disc spacers in place. No hardware complication. Multilevel decompression. Artifact related to the hardware. No grossly evident high-grade canal stenosis. Vertebrae: Superior endplate compression deformity at L2 is age indeterminate. Favored chronic but cannot say definitively without a comparison. Soft tissues: No acute abnormality. Cortical cysts in the kidneys bilaterally. IMPRESSION: Superior endplate compression deformity at L2 is age indeterminate. Favored chronic but cannot say definitively without a comparison. Otherwise no acute fracture or hardware complication. Electronically signed by: Dilan Ramsay MD 10/18/23 00:33 AM
--- NOTE | 2023-10-18 01:10 | Emergency Department Note ---
ED Visit Note I agree with the diagnosis and management decisions and have been personally involved in the case. CT of the thoracic and lumbar spine was reviewed. It appears the patient has fractured an osteophyte Of the lower thoracic spine. Patient is felt to be stable for discharge. He was advised on pain management. He will follow closely with his orthopedic spine surgeon, Dr. Dunbar. Case management was consulted to help arrange follow-up. Please see Chantell Campos PA-C's notes for further details of the history, physical and visit. .
[2023-10-18] MEDS: HYDROmorphone INJ 0.5 MG/0.5 ML SYR IV STA (02:28)
[2023-10-18] MEDS: SODIUM CHLORIDE 0.9% 500 ML IV ONE (02:28)
--- OUTSIDE RECORDS SUMMARY | 2023-10-18 02:36 | External Medical Summary | Continuity of Care Document ---
Author Name Unknown Organization [facility] [address] [facility] [address] [phone] Care Team Providers [employer] Attendant Name Role Phone Arnie Kim Primary Care Physician [phone] [facility] [id number] Date(s): 08/16/23 - 08/16/23 [facility] [address] [facility] [address] [phone] Encounter Diagnosis Skin lesion of back(Discharge Diagnosis) - 08/16/23 Inflamed seborrheic keratosis(Discharge Diagnosis) - 08/16/23 Discharge Disposition: Home or Self Care Attending Physician: MD Ya Thomas A Allergies, Adverse Reactions, Alerts No Known Allergies Assessment and Plan Extracted from: Title:Clinical Document Author:MD Felton, Justine Yanes Date:08/16/23 OUTPATIENT NOTE Name: EDWIN SORIA Patient Number:1 [id number] : 1960 Date of Service: 08/16/2023 _ Edwin Soria returns for reevaluation and skin examination. He has a prior history of biopsy of mildly dysplastic nevus present left mid to lower back. This is a small area of recurrent pigmentation at the center approximately 4 mm which we will continue to monitor. No excision at this time. He has an intensely pigmented junctional nevus present on the right of midline mid to lower back which was biopsied today because of its intense pigmentation. Intensely pigmented lesion right mid back. 4 mm. Consent obtained. Timeout signed. Lidocaine with epinephrine local anesthesia followed by tangential removal and hemostasis with electrocautery. Specimen was submitted for pathology and patient will be informed the result of the pathology report. Petrolatum and bandage applied. Patient tolerated procedure well. Patient notes a sessile seborrheic keratosis which he would like to have removed because of irritation on the right lower back and which was also destroyed with electrocautery after lidocaine with epinephrine local anesthesia. No pathology was obtained. Review of systems medications allergies as noted on the chart. The patient has successful spring gobbler baig this spring. Examination reveals pleasant well-nourished white male type II skin alert and oriented x 3 with normal mood and affect. Examination of the head, neck, back, chest, arms, hands, fingers, abdominal area reveals findings as noted above, scattered pigmented nevi which do not appear atypical and is otherwise unremarkable. Patient will return in 6 months for reevaluation of the treatment sites. Medications aspirin 81 mg oral capsule Start: 01/04/23 7:57:00 AM EDT Start Date: 01/04/23 Status: Ordered carvedilol Start: 05/13/18 11:21:00 AM EST Start Date: 05/13/18 Status: Ordered gabapentin 300 mg oral capsule Start: 05/13/18 11:57:00 AM EST, 1 cap, PO, qhs, Disp# 30 cap, Refills: 1, Pharmacy: [facility] [address] Start Date: 05/13/18 Status: Ordered hydroCHLOROthiazide 25 mg oral tablet Start: 01/04/23 7:57:00 AM EDT Start Date: 01/04/23 Status: Ordered losartan Start: 05/13/18 11:21:00 AM EST Start Date: 05/13/18 Status: Ordered Tylenol Start: 01/04/23 7:57:00 AM EDT Start Date: 01/04/23 Status: Ordered Mental Status 08/16/23 Barriers to Learning one year None evide nt Mandatory Health Literacy Documentation Yes Health Literacy Communication Barriers N ever Primary Language Norwegian Problem List Condition Confirmation Course Effective Dates Status H ealth Status Informant Hypertension Confirmed Active Intervertebral disc disease Confirmed Active Diagnosis Diagnosis Type Effective Dates Health Status Clinical Service Informant Skin lesion of back Discharge Diagnosis 08/16/23 Inflamed seborrheic keratosis Discharge Diagnosis 08/16/23 Procedures Procedure Date Related Diagnosis Body Site Status Shave biopsy 08/16/23 Completed Shave biopsy 01/04/23 Completed Surgery 1 09/2022 Completed Surgery 2 1989 Completed 1Spinal fusion 2Hernia repair Social History Social History Type Response Smoking Status Never smoked cigaret david Sex Male Outpatient Note * MD FeltonChristofer: PERFORM Event Display: .Outpt Note Authored Date: [id number] OUTPATIENT NOTE Name: EDWIN SORIA Patient Number:1 [id number] : 1960 Date of Service: 08/16/2023 _ Edwin Soria returns for reevaluation and skin examination. He has a prior history of biopsy of mildly dysplastic nevus present left mid to lower back. This is a small area of recurrent pigmentationat the center approximately 4 mm which we will continue to monitor. No excision at this time. He has an intensely pigmented junctional nevus present on the right of midline mid to lower back which was biopsied today because of its intense pigmentation. Intensely pigmented lesion right mid back. 4 mm. Consent obtained. Timeout signed. Lidocaine with epinephrine local anesthesia followed by tangential removal and hemostasis with electrocautery. Specimen was submitted for pathology and patient will be informed the result of the pathology report. Petrolatum and bandage applied. Patient tolerated procedure well. Patient notes a sessile seborrheic keratosis which he would like to have removed because of irritation on the right lower back and which was also destroyed with electrocautery after lidocaine with epinephrine local anesthesia. No pathology was obtained. Review of systems medications allergies as noted on the chart. The patient has successful spring gobbler baig this spring. Examination reveals pleasant well-nourished white male type II skin alert and oriented x 3 with normal mood and affect. Examination of the head, neck, back, chest, arms, hands, fingers, abdominal area reveals findings as noted above, scattered pigmented nevi which do not appear atypical and is otherwise unremarkable. Patient will return in 6 months for reevaluation of the treatment sites. Electronic Signature on File Electronically Reviewed/Signed by: Christofer Ya MD Author Signature Dt/Tm:08/16/2023 10:27 AM Department of Dermatology [facility] Patient Care team information Care Team Personnel Name: DO Kim William Price Position: Referring Member Role: Primary Care Provider Address: Address: [address] [address] Care Team Related Persons Name: COURTNEY SORIA Address: home [address] [place] [phone]
[2023-10-18 02:39] LABS: Basophils # (auto) 0.05 K/uL (0.00-0.20); Basophils % (auto) 0.5 %; Eosinophils # (auto) 0.07 K/uL (0.00-0.50); Eosinophils % (auto) 0.7 %; Hematocrit (blood only) 37.2 % (42.0-52.0); Hemoglobin 13.6 g/dl (14.0-18.0); Immature Granulocytes # (auto) 0.04 K/uL (0.01-0.20); Immature Granulocytes % (auto) 0.4 %; Lymphocytes # (auto) 0.83 K/uL (1.20-3.40); Mean Corpuscular Hemoglobin 35.6 pg (25.0-34.0); Mean Corpuscular Hgb Conc 36.6 g/dL (32.0-36.0); Mean Corpuscular Volume 97.4 fL (80.0-100.0); Monocytes # (auto) 0.67 K/uL (0.11-0.59); Monocytes % (auto) 6.5 %; Neutrophils # (auto) 8.69 K/uL (1.40-6.50); Neutrophils % (auto) 83.9 %; Platelet Count 189 K/uL (130-400); RDW Coefficient of Variation 12.6 % (11.5-14.5); RDW Standard Deviation 44.8 fL (36.4-46.3); Red Blood Count 3.82 M/uL (4.70-6.10); White Blood Count 10.35 K/ul (4.8-10.8)
--- NOTE | 2023-10-18 02:41 | History & Physical Report ---
Date of Service October 18, 2023 Assessment & Plan (1) Thoracic vertebral fracture: (2) B12 deficiency: (3) Closed L2 vertebral fracture: (4) Acute low back pain: (5) Neurogenic claudication due to lumbar spinal stenosis: (6) Neuropathy: (7) Hypertension: Plan Acute T9-10 thoracic vertebral fracture/old L2 vertebral fracture- Admit to medical surgical floor for pain control Acetaminophen 650 mg by mouth every 6 hours as needed for mild pain or fever Oxycodone 5 mg by mouth every 4 hours as needed for moderate pain Dilaudid 0.5 mg IV every 4 hours as needed for severe pain Zofran 4 mg IV every 6 hours as needed Status post 500 mL normal saline bolus in the ED LR at 80 mL/h x 1 L Toradol 15 mg IV every 6 hours as needed for breakthrough pain Lidoderm patch Consult his orthopedic spine surgeon Dr. Dunbar Hypertension- Hold HCTZ and aspirin Resume carvedilol and losartan in the a.m. Peripheral neuropathy/history of lumbar spinal stenosis- Continue gabapentin 600 mg p.o. 3 times daily, give his evening dose now History of Present Illness Chief Complaint: The patient presents to the emergency department with acute onset of lower thoracic area pain in his back that began around Ian 30 this morning, after his 3 and [id number] grandson jumped on his back. He denies any loss of bowel or bladder control, he denies any change in his usual bilateral lower extremity neuropathy. Primary Care Provider: Arnie Kim DO The patient is a 63-year-old male with a past medical history including hypertension, B12 deficiency, bilateral peripheral neuropathy, obesity, history of multiple back surgeries. He presents to the emergency department as noted above. His pain was unable to be controlled well in the emergency department, and he was referred for evaluation for admission for pain control and to follow- up with orthopedic spine surgery in the hospital Allergies Allergy/AdvReac Type Severity Reaction Status Date / Time No Known Allergies Allergy Verified 10/17/23 22:39 Home Medications Medication Instructions Recorded Confirmed Type aspirin 81 mg tablet,delayed 81 mg PO QAM 09/28/18 10/17/23 History release cyanocobalamin (vitamin B-12) 1,000 mcg PO DAILY #30 caps 09/25/22 10/17/23 Rx 1,000 mcg capsule carvedilol 6.25 mg tablet 6.25 mg PO BID #180 tabs 03/08/24 08/06/24 Rx hydrochlorothiazide 25 mg tablet 12.5 mg (1/2 x 25 mg) PO QAM #45 05/19/23 10/17/23 Rx tabs losartan 50 mg tablet 50 mg PO BID #180 tabs 05/19/23 10/17/23 Rx gabapentin 300 mg capsule 600 mg (2 x 300 mg) PO TID 90 days 10/05/23 10/17/23 Rx #540 caps Past Med/Surg History Problem List (Updated 10/18/23 @ 02:47 by Rickey Santoyo MD) Thoracic vertebral fracture Elevated fasting glucose Right flank discomfort B12 deficiency Closed L2 vertebral fracture (Acute) Acute low back pain (Acute) Trochanteric bursitis of right hip (Acute) Fracture of lumbar spine (Acute) Post surgical complication (Acute) Prostate cancer (Chronic 03/21/19) Colon cancer screening Tubular adenoma (09/18/19) recheck 3 years, Dr. Blanc Lumbar stenosis Neurogenic claudication due to lumbar spinal stenosis Perianal abscess Anorectal fistula Hyponatremia Neuropathy (Chronic) Feet Skin lesion of back Lumbar spinal stenosis 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 fusion procedure Lumbar radiculopathy Aortic root dilatation 4.1cm per 06/2021 Echo Hypertension Medical History B12 deficiency Chronic hyponatremia Baseline sodium low 130s per chart review Lumbar spinal stenosis 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 fusion procedure Lumbar radiculopathy Neuropathy Feet Aortic root dilatation 4.1cm per 06/2021 Echo Dyslipidemia Borderline History of prostate cancer Dx 2019, s/p radiation therapy (completed 04/2020), no current issues Obesity Chronic back pain Hypertension Surgical History History of lumbar fusion L3-S1 decompression/fusion (06/15/20): Grade 2 view, Glidescope#4, ETT 8.0 at [facility] History of prostate biopsy H/O excision of mass Excision of Gluteal Cyst (10/2018) History of kyphoplasty T5 kyphoplasty with biopsy (09/16/14): Grade view 1, Glidescope#4, ETT 7.5 at [facility] H/O elbow surgery Right elbow tendon repair (2006) History of discectomy Lumbar discectomy/laminectomy (2009, 2014) History of colonoscopy History of herniorrhaphy Right inguinal hernia (1989) H/O retained foreign body fully removed 1994 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 Sister Family hx colonic polyps Son No problems noted. Son No problems noted. Daughter No problems noted. Other No family history of adverse response to anesthesia Denies family history of Ovarian cancer Myocardial infarction Breast cancer Colorectal cancer Social History Smoking Status: Never smoker Second Hand Exposure: No; Do You Dip or Chew Tobacco: No (Hx); Hx Alcohol Use: Yes Alcohol type: beer Alcohol Intake Frequency: 2-3 x/Week Hx Substance Use: No Preferred Language: Romanian Communication Ability: Effective Visual Impairment: No Limitations Hearing Ability: Normal Lute Packer Or Applier Required: No Beliefs That Will Affect Care: None marital status: Current Living Situation: Spouse current occupational status: retired 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 [employer] Feels Safe at Home: Yes Diet: regular caffeine: Yes during the past year weight has: remained stable Dental Care, Regularly: No Physical Activity Frequency: 1-2 Times per Week Seatbelt Use: sometimes Sunscreen Use: No Assistive Devices: Walker Review of Systems Review of Systems: The patient denies chest pain, palpitations, shortness of breath, dyspnea on exertion, cough, lower extremity swelling, sore throat, fevers, chills, sweats, weight change, fatigue, nausea, vomiting, d iarrhea , constipation, abdominal pain, pelvic pain, blood in urine or stool, dysuria, urinary frequency or urgency, lightheadedness, dizziness, headache, memory loss, loss of consciousness, rash, abnormal bruising or bleeding, imbalance, focal or generalized weakness, numbness or tingling in arms, generalized arthralgias or myalgias, neck pain, or night sweats. The review of systems is otherwise negative other than for that already noted above, and at least 10 systems have been reviewed. Physical Exam Physical Exam: The patient is awake, alert and oriented 3, well developed and well nourished, normocephalic and atraumatic, lying in bed and in no acute distress. HEENT--PERRL, EOMI, mucous membranes and oropharynx mildly dry. Neck--supple. No JVD. No bruits. Thyroid normal, trachea midline, no adenopathy. Heart--normal S1 and S2. No murmurs, rubs or gallops. Lungs--clear bilaterally, no respiratory distress, no accessory muscle use. Abdomen--normal bowel sounds and soft. Nontender. Nondistended, no hernias or masses, no organomegaly. Extremities--no cyanosis or clubbing. No edema. There are good distal pulses b/l. Dermatologic--normal skin turgor, normal color, no abnormal lymph nodes, no rash. Neurologic--cranial nerves II through XII grossly intact. Rheumatologic-- Limited exam due to lower thoracic spine pain Psychiatric--normal affect. Results & Data Results & Data Vital Signs (Past 12 Hours) Vital Signs Temp Pulse Pulse Resp BP BP Pulse Ox 10/18/23 02:32 56 L 10/18/23 02:00 60 19 117/56 L 96 10/18/23 00:41 59 L 16 156/81 H 93 10/17/23 23:19 68 17 133/71 92 10/17/23 21:14 36.8 C 74 22 111/66 96 O2 Del Method 10/18/23 02:32 10/18/23 02:00 10/18/23 00:41 Room Air 10/17/23 23:19 Room Air 10/17/23 21:14 Room Air Laboratory Results Laboratory Results WBC 10.35 K/ul (4.8-10.8) 10/18/23 02:25 RBC 3.82 M/uL (4.70-6.10) L 10/18/23 02:25 Hgb 13.6 g/dl (14.0-18.0) L 10/18/23 02:25 Hct 37.2 % (42.0-52.0) L 10/18/23 02:25 MCV 97.4 fL (80.0-100.0) 10/18/23 02:25 MCH 35.6 pg (25.0-34.0) H 10/18/23 02:25 MCHC 36.6 g/dL (32.0-36.0) H 10/18/23 02:25 RDW Std Deviation 44.8 fL (36.4-46.3) 10/18/23 02:25 RDW Coeff of Jhon 12.6 % (11.5-14.5) 10/18/23 02:25 Plt Count 189 K/uL (130-400) 10/18/23 02:25 MPV 10.0 fL (9.4-12.4) 10/18/23 02:25 Immature Gran % (Auto) 0.4 % 10/18/23 02:25 Neut % (Auto) 83.9 % 10/18/23 02:25 Lymph % (Auto) 8.0 % 10/18/23 02:25 Beltrami % (Auto) 6.5 % 10/18/23 02:25 Eos % (Auto) 0.7 % 10/18/23 02:25 Baso % (Auto) 0.5 % 10/18/23 02:25 Neut # (Auto) 8.69 K/uL (1.40-6.50) H 10/18/23 02:25 Lymph # (Auto) 0.83 K/uL (1.20-3.40) L 10/18/23 02:25 Beltrami # (Auto) 0.67 K/uL (0.11-0.59) H 10/18/23 02:25 Eos # (Auto) 0.07 K/uL (0.00-0.50) 10/18/23 02:25 Baso # (Auto) 0.05 K/uL (0.00-0.20) 10/18/23 02:25 Immature Gran # (Auto) 0.04 K/uL (0.01-0.20) 10/18/23 02:[address] 10/17/23 21:51 Exam(s): CT L SPINE EXAM: CT Lumbar Spine Without Intravenous Contrast CLINICAL HISTORY: Reason for exam: Trauma. TECHNIQUE: Axial computed tomography images of the lumbar spine without intravenous contrast. CTDI is 49 mGy and DLP is 2775 mGy-cm. Automated exposure control was utilized for the study. A dose lowering technique was utilized adhering to the principles of ALARA. COMPARISON: No relevant prior studies available. FINDINGS: Artifacts: Thoracolumbar fusion construct is intact. Multilevel degenerative disc disease. Multiple disc spacers in place. No hardware complication. Multilevel decompression. Artifact related to the hardware. No grossly evident high-grade canal stenosis. Vertebrae: Superior endplate compression deformity at L2 is age indeterminate. Favored chronic but cannot say definitively without a comparison. Soft tissues: No acute abnormality. Cortical cysts in the kidneys bilaterally. IMPRESSION: Superior endplate compression deformity at L2 is age indeterminate. Favored chronic but cannot say definitively without a comparison. Otherwise no acute fracture or hardware complication. Electronically signed by: Dilan Ramsay MD 10/18/23 00:[address] 10/17/23 21:51 Exam(s): CT T SPINE EXAM: CT Thoracic Spine Without Intravenous Contrast CLINICAL HISTORY: Reason for exam: Trauma. TECHNIQUE: Axial computed tomography images of the thoracic spine without intravenous contrast. CTDI is 49 mGy and DLP is 2775 mGy-cm. Automated exposure control was utilized for the study. A dose lowering technique was utilized adhering to the principles of ALARA. COMPARISON: No relevant prior studies available. FINDINGS: Vertebrae: Flowing ventral osteophytes throughout the thoracic spine. Acute horizontal fracture extending through the anterior osteophyte at T9- 10. This fracture involves the T10 anterior superior endplate and extends into the T9-10 disc space. No posterior cortical buckling or significant vertebral height loss. No fracture of the posterior elements or malalignment. Status post vertebral augmentation at T5. Postsurgical changes at T11-12 with intact hardware. No epidural collection or spinal canal stenosis. Soft tissues: Unremarkable. IMPRESSION: Acute horizontal fracture extending through the anterior osteophyte at T9- 10. This fracture involves the T10 anterior superior endplate and extends into the T9-10 disc space. No posterior cortical buckling or significant vertebral height loss. No fracture of the posterior elements. No malalignment. Electronically signed by: Dilan Ramsay MD 10/18/23 00:29 AM Code Status & VTE Plan Code Status Full code VTE Prophylaxis Plan VTE Prophylaxis will be ordered: Yes PG Care Time/CCT Total # of Minutes Spent Total Time Spent with Patient: Total time spent is greater than 50% in coordination of care (as documented) at patient's floor/unit and/or counseling patient: Coding Level of Care Code 67888 INT INP/OBS CARE MIN Diagnoses Thoracic vertebral fracture S22.009A B12 deficiency E53.8 Closed L2 vertebral fracture S32.029A Encounter type: initial encounter Fracture morphology: unspecified fracture morphology Acute low back pain M54.50 Back pain laterality: unspecified Neurogenic claudication due to lumbar spinal stenosis M48.062 Neuropathy G62.9 Hypertension I10 (3) Closed L2 vertebral fracture Encounter type: initial encounter Fracture morphology: unspecified fracture morphology Qualified Code(s): S32.029A - Unspecified fracture of second lumbar vertebra, initial encounter for closed fracture (4) Acute low back pain Back pain laterality: unspecified
[2023-10-18] MEDS: GABAPENTIN 600 MG TAB PO STA (02:46)
[2023-10-18] MEDS: LACTATED RINGER'S 1,000 ML IV SCH (02:48)
[2023-10-18 02:55] LABS: BUN Creatinine Ratio 14.3 (10-20); Calcium 9.3 mg/dl (8.6-10.3); Creatinine Clr Calc Pharmacy 128.8 ml/min; Est GFR (African American) 110.4 ml/min; Est GFR (Non-African American) 95.2 ml/min; Potassium 3.6 mmol/L (3.5-5.1)
[2023-10-18] MEDS ORDERED: ACETAMINOPHEN 325 MG TAB PO PRN (04:03)
[2023-10-18] MEDS: oxyCODONE HCL IR 5 MG TAB (IMMEDIATE RELEASE) PO PRN ×2 (04:20→16:29)
[2023-10-18] MEDS: HYDROmorphone INJ 0.5 MG/0.5 ML SYR IV PRN ×2 (08:08→21:42)
[2023-10-18] MEDS: CYANOCOBALAMIN (B-12) 500 MCG TABLET PO SCH (08:09)
[2023-10-18] MEDS: carvediloL 6.25 MG TAB PO SCH (08:09)
[2023-10-18] MEDS: GABAPENTIN 300 MG CAP PO SCH (08:10)
[2023-10-18] MEDS: LOSARTAN POTASSIUM 50 MG TAB PO SCH (08:10)
[2023-10-18] MEDS: ONDANSETRON INJ 2 MG/ML 2 ML VIAL IV PRN (08:35)
[2023-10-18 10:09] LABS: BUN Creatinine Ratio 16.2 (10-20); Calcium 9.4 mg/dl (8.6-10.3); Est GFR (African American) 112.2 ml/min; Est GFR (Non-African American) 96.8 ml/min; Potassium 3.8 mmol/L (3.5-5.1)
[2023-10-18] MEDS: KETOROLAC TROMETHAMINE 15 MG/ML VIAL IV PRN (11:40)
--- NOTE | 2023-10-18 13:31 | Orthopedic Consultation ---
Date of Consultation October 18, 2023 Assessment & Plan (1) Thoracic vertebral fracture: Get some x-rays and assessment assessment T9-T10 fracture. Plan I discussed on this patient regarding his fracture pattern and my concerns. There is risk of the bony Chance fracture in light of this multilevel spondylosis. The posterior elements appear to be intact at this time. I will order a TLSO brace to wear when he is out of bed and ambulating. Will obtain x-rays in the next few days to assess alignment. Patient understands agrees. History of Present Illness Reason for Consultation: Thoracic fracture Attending Physician: Anna Meléndez MD History of Present Illness This is a 63-year-old male who presents after having an incident with over flexion of his spine. He was playing with his grandson and the sudden onset of thoracic pain. Again the emergency room yesterday for evaluation. This morning he is sitting the chair at bedside. He complains of thoracic back pain denies any radicular component to his pain denies any weakness or numbness or tingling lower extremities. Allergies Allergy/AdvReac Type Severity Reaction Status Date / Time No Known Allergies Allergy Verified 10/17/23 22:39 Home Medications Medication Instructions Recorded Confirmed Type aspirin 81 mg tablet,delayed 81 mg PO QAM 09/28/18 10/17/23 History release cyanocobalamin (vitamin B-12) 1,000 mcg PO DAILY #30 caps 09/25/22 10/17/23 Rx 1,000 mcg capsule carvedilol 6.25 mg tablet 6.25 mg PO BID #180 tabs 05/19/23 10/17/23 Rx hydrochlorothiazide 25 mg tablet 12.5 mg (1/2 x 25 mg) PO QAM #45 05/19/23 10/17/23 Rx tabs losartan 50 mg tablet 50 mg PO BID #180 tabs 05/19/23 10/17/23 Rx gabapentin 300 mg capsule 600 mg (2 x 300 mg) PO TID 90 days 10/05/23 10/17/23 Rx #540 caps Patient History Medical History B12 deficiency Chronic hyponatremia Baseline sodium low 130s per chart review Lumbar spinal stenosis 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 fusion procedure Lumbar radiculopathy Neuropathy Feet Aortic root dilatation 4.1cm per 06/2021 Echo Dyslipidemia Borderline History of prostate cancer Dx 2019, s/p radiation therapy (completed 04/2020), no current issues Obesity Chronic back pain Hypertension Surgical History History of lumbar fusion L3-S1 decompression/fusion (06/15/20): Grade 2 view, Glidescope#4, ETT 8.0 at [facility] History of prostate biopsy H/O excision of mass Excision of Gluteal Cyst (10/2018) History of kyphoplasty T5 kyphoplasty with biopsy (09/16/14): Grade view 1, Glidescope#4, ETT 7.5 at [facility] H/O elbow surgery Right elbow tendon repair (2006) History of discectomy Lumbar discectomy/laminectomy (2009, 2014) History of colonoscopy History of herniorrhaphy Right inguinal hernia (1989) H/O retained foreign body fully removed 1994 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 Sister Family hx colonic polyps Son No problems noted. Son No problems noted. Daughter No problems noted. Other No family history of adverse response to anesthesia Denies family history of Ovarian cancer Myocardial infarction Breast cancer Colorectal cancer Social History Smoking Status: Never smoker Second Hand Exposure: No; Do You Dip or Chew Tobacco: No; Tobacco Cessation Education Requested by Patient: No Hx Alcohol Use: Yes Alcohol type: beer Alcohol Intake Frequency: 2-3 x/Week Hx Substance Use: No Preferred Language: Czech Communication Ability: Effective Visual Impairment: No Limitations Hearing Ability: Normal Hydroponics Worker Required: No Beliefs That Will Affect Care: None marital status: Current Living Situation: Spouse current occupational status: retired 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 Is concerning to testing lower extremities. He can lean forward without difficulty. There is pain to palpation percussion of the thoracolumbar junction. Results & Data Vital Signs (Past 12 Hours) Vital Signs Temp Pulse Pulse Pulse Resp BP Pulse Ox 10/18/23 13:11 36.8 C 73 16 143/77 H 97 10/18/23 08:09 36.6 C 62 16 149/85 H 98 10/18/23 04:00 36.4 C L 61 20 140/84 99 10/18/23 02:32 56 L 10/18/23 02:00 60 19 117/56 L 96 O2 Del Method O2 Flow Rate 10/18/23 13:11 Room Air 10/18/23 08:09 Room Air 10/18/23 04:00 Nasal Cannula 2 10/18/23 02:32 10/18/23 02:00 (1) Thoracic vertebral fracture Encounter type: initial encounter Fracture morphology: unspecified fracture morphology Fracture type: closed Thoracic vertebra fracture level: T9 Qualified Code(s): S22.079A - Unspecified fracture of T9-T10 vertebra, initial encounter for closed fracture
[2023-10-18 13:49] LABS: BUN Creatinine Ratio 16.5 (10-20); Calcium 9.2 mg/dl (8.6-10.3); Creatinine Clr Calc Pharmacy 125.5 ml/min; Est GFR (African American) 109.2 ml/min; Est GFR (Non-African American) 94.2 ml/min; Potassium 3.9 mmol/L (3.5-5.1)
--- NOTE | 2023-10-18 14:50 | Hospitalist Progress Note ---
Date of Service October 18, 2023 Assessment & Plan (1) Thoracic vertebral fracture: Plan: pain, T9- T10 fx TLSO ordered (2) B12 deficiency: Plan: supplement (3) Closed L2 vertebral fracture: Plan: pain control (4) Acute low back pain: (5) Neurogenic claudication due to lumbar spinal stenosis: (6) Neuropathy: Plan: on Neurontin (7) Hypertension: Plan: continue home meds (8) Hyponatremia: Plan: sodium 124->123 stop iv fluids monitor BMP Plan Acute T9-10 thoracic vertebral fracture/old L2 vertebral fracture- Admit to medical surgical floor for pain control Acetaminophen 650 mg by mouth every 6 hours as needed for mild pain or fever Oxycodone 5 mg by mouth every 4 hours as needed for moderate pain Dilaudid 0.5 mg IV every 4 hours as needed for severe pain Zofran 4 mg IV every 6 hours as needed Status post 500 mL normal saline bolus in the ED LR at 80 mL/h x 1 L Toradol 15 mg IV every 6 hours as needed for breakthrough pain Lidoderm patch Consult his orthopedic spine surgeon Dr. Dunbar Hypertension- Hold HCTZ and aspirin Resume carvedilol and losartan in the a.m. Peripheral neuropathy/history of lumbar spinal stenosis- Continue gabapentin 600 mg p.o. 3 times daily, give his evening dose now Admission and Anticipated Discharge Date Admission Date: October 18, 2023 Subjective reports severe back pain Review of Systems Review of Systems: The patient denies chest pain, palpitations, shortness of breath, dyspnea on exertion, cough, lower extremity swelling, sore throat, fevers, chills, sweats, weight change, fatigue, nausea, vomiting, diarrhea , constipation, abdominal pain, pelvic pain, blood in urine or stool, dysuria, urinary frequency or urgency, lightheadedness, dizziness, headache, memory loss, loss of consciousness, rash, abnormal bruising or bleeding, imbalance, focal or generalized weakness, numbness or tingling in arms, generalized arthralgias or myalgias, neck pain, or night sweats. The review of systems is otherwise negative other than for that already noted above, and at least 10 systems have been reviewed. Results & Data Results & Data Vital Signs (Past 12 Hours) Vital Signs Temp Pulse Pulse Resp BP Pulse Ox O2 Del Method 10/18/23 13:11 36.8 C 73 16 143/77 H 97 Room Air 10/18/23 08:09 36.6 C 62 16 149/85 H 98 Room Air 10/18/23 04:00 36.4 C L 61 20 140/84 99 Nasal Cannula O2 Flow Rate 10/18/23 13:11 10/18/23 08:09 10/18/23 04:00 2 Laboratory Results Abnormal lab results 10/18/23 10/18/23 10/18/23 Range/Units 02:25 09:37 13:17 RBC 3.82 L (4.70-6.10) M/uL Hgb 13.6 L (14.0-18.0) g/dl Hct 37.2 L (42.0-52.0) % MCH 35.6 H (25.0-34.0) pg MCHC 36.6 H (32.0-36.0) g/dL Neut # (Auto) 8.69 H (1.40-6.50) K/uL Lymph # (Auto) 0.83 L (1.20-3.40) K/uL [place] # (Auto) 0.67 H (0.11-0.59) K/uL Sodium 121 L 124 L 123 L (136-145) mmol/L Chloride 86 L 88 L 87 L (98-107) mmol/L Glucose 130 H 118 H 122 H (70-99(Fasting)) mg/dl PG Care Time/CCT Total # of Minutes Spent Total Time Spent with Patient: Total time spent is greater than 50% in coordination of care (as documented) at patient's floor/unit and/or counseling patient: Coding Level of Care Code 66209 SUB INP/OBS CARE 2MIN Diagnoses Thoracic vertebral fracture S22.079A Encounter type: initial encounter Fracture morphology: unspecified fracture morphology Fracture type: closed Thoracic vertebra fracture level: T9 B12 deficiency E53.8 Closed L2 vertebral fracture S32.029A Encounter type: initial encounter Fracture morphology: unspecified fracture morphology Acute low back pain M54.50 Back pain laterality: unspecified Neurogenic claudication due to lumbar spinal stenosis M48.062 Neuropathy G62.9 Hypertension I10 Hyponatremia E87.1 (1) Thoracic vertebral fracture Encounter type: initial encounter Fracture morphology: unspecified fracture morphology Fracture type: closed Thoracic vertebra fracture level: T9 Qualified Code(s): S22.079A - Unspecified fracture of T9-T10 vertebra, initial encounter for closed fracture (3) Closed L2 vertebral fracture Encounter type: initial encounter Fracture morphology: unspecified fracture morphology Qualified Code(s): S32.029A - Unspecified fracture of second lumbar vertebra, initial encounter for closed fracture (4) Acute low back pain Back pain laterality: unspecified
[2023-10-18 18:11] LABS: Calcium 9.6 mg/dl (8.6-10.3); Potassium 3.8 mmol/L (3.5-5.1)
[2023-10-18 18:16] LABS: BUN Creatinine Ratio 16.9 (10-20); Creatinine Clr Calc Pharmacy 111.4 ml/min; Est GFR (Non-African American) 89.7 ml/min
[2023-10-18] MEDS: LIDOCAINE 5% 1 PATCH TD SCH (20:17)
[2023-10-18 22:22] LABS: Calcium 9.7 mg/dl (8.6-10.3); Creatinine Clr Calc Pharmacy 99.1 ml/min; Est GFR (African American) 91.1 ml/min; Est GFR (Non-African American) 78.6 ml/min; Potassium 3.8 mmol/L (3.5-5.1)
[2023-10-19 06:46] LABS: Basophils # (auto) 0.03 K/uL (0.00-0.20); Basophils % (auto) 0.3 %; Eosinophils # (auto) 0.12 K/uL (0.00-0.50); Eosinophils % (auto) 1.3 %; Hematocrit (blood only) 38.6 % (42.0-52.0); Hemoglobin 13.8 g/dl (14.0-18.0); Immature Granulocytes # (auto) 0.05 K/uL (0.01-0.20); Immature Granulocytes % (auto) 0.5 %; Lymphocytes # (auto) 0.73 K/uL (1.20-3.40); Mean Corpuscular Hemoglobin 35.3 pg (25.0-34.0); Mean Corpuscular Hgb Conc 35.8 g/dL (32.0-36.0); Mean Corpuscular Volume 98.7 fL (80.0-100.0); Monocytes % (auto) 8.8 %; Neutrophils # (auto) 7.38 K/uL (1.40-6.50); Neutrophils % (auto) 81.1 %; Platelet Count 198 K/uL (130-400); RDW Coefficient of Variation 12.9 % (11.5-14.5); RDW Standard Deviation 46.5 fL (36.4-46.3); Red Blood Count 3.91 M/uL (4.70-6.10); White Blood Count 9.11 K/ul (4.8-10.8)
[2023-10-19 07:05] LABS: Albumin Level 4.3 gm/dl (3.4-5.0); BUN Creatinine Ratio 17.9 (10-20); Creatinine Clr Calc Pharmacy 93.5 ml/min; Est GFR (African American) 84.9 ml/min; Est GFR (Non-African American) 73.3 ml/min; Phosphorus 3.8 mg/dl (2.5-4.9); Potassium 4.4 mmol/L (3.5-5.1)
[2023-10-19] MEDS: SENNA 8.6 MG TAB PO SCH (09:40)
[2023-10-19] MEDS: POLYETHYLENE (MIRALAX) 17 GM PACK PO SCH (09:40)
--- NOTE | 2023-10-19 12:56 | Hospitalist Progress Note ---
Date of Service October 19, 2023 Assessment & Plan (1) Thoracic vertebral fracture: Plan: pain, T9- T10 fx TLSO ordered (2) B12 deficiency: Plan: supplement (3) Closed L2 vertebral fracture: Plan: pain control (4) Acute low back pain: Plan: continue pain control (5) Neurogenic claudication due to lumbar spinal stenosis: (6) Neuropathy: Plan: on Neurontin (7) Hypertension: Plan: continue home meds (8) Hyponatremia: Plan: sodium 124->123 ->125 stop iv fluids monitor BMP Plan Acute T9-10 thoracic vertebral fracture/old L2 vertebral fracture- Admit to medical surgical floor for pain control Acetaminophen 650 mg by mouth every 6 hours as needed for mild pain or fever Oxycodone 5 mg by mouth every 4 hours as needed for moderate pain Dilaudid 0.5 mg IV every 4 hours as needed for severe pain Zofran 4 mg IV every 6 hours as needed Status post 500 mL normal saline bolus in the ED LR at 80 mL/h x 1 L Toradol 15 mg IV every 6 hours as needed for breakthrough pain Lidoderm patch Consult his orthopedic spine surgeon Dr. Dunbar Hypertension- Hold HCTZ and aspirin Resume carvedilol and losartan in the a.m. Peripheral neuropathy/history of lumbar spinal stenosis- Continue gabapentin 600 mg p.o. 3 times daily, give his evening dose now Admission and Anticipated Discharge Date Admission Date: October 18, 2023 Subjective reports severe back pain Review of Systems Review of Systems: The patient denies chest pain, palpitations, shortness of breath, dyspnea on exertion, cough, lower extremity swelling, sore throat, fevers, chills, sweats, weight change, fatigue, nausea, vomiting, diarrhea , constipation, abdominal pain, pelvic pain, blood in urine or stool, dysuria, urinary frequency or urgency, lightheadedness, dizziness, headache, memory loss, loss of consciousness, rash, abnormal bruising or bleeding, imbalance, focal or generalized weakness, numbness or tingling in arms, generalized arthralgias or myalgias, neck pain, or night sweats. The review of systems is otherwise negative other than for that already noted above, and at least 10 systems have been reviewed. Physical Exam Physical Exam: head atraumatic neck supple chest CTA b/l heart S1S2 regular abdomen soft, nt, nd, bs extremities no edema neuro AAO times 3 Results & Data Results & Data Vital Signs (Past 12 Hours) Vital Signs Temp Pulse Resp BP Pulse Ox O2 Del Method 10/19/23 07:34 36.8 C 67 18 124/78 97 Room Air Laboratory Results Abnormal lab results 10/18/23 10/18/23 10/18/23 Range/Units 13:17 17:21 21:20 RBC (4.70-6.10) M/uL Hgb (14.0-18.0) g/dl Hct (42.0-52.0) % MCH (25.0-34.0) pg RDW Std Deviation (36.4-46.3) fL Neut # (Auto) (1.40-6.50) K/uL Lymph # (Auto) (1.20-3.40) K/uL [place] # (Auto) (0.11-0.59) K/uL Sodium 123 L 122 L 123 L (136-145) mmol/L Chloride 87 L 87 L 89 L (98-107) mmol/L Glucose 122 H 119 H 118 H (70-99(Fasting)) mg/dl 10/19/23 Range/Units 06:15 RBC 3.91 L (4.70-6.10) M/uL Hgb 13.8 L (14.0-18.0) g/dl Hct 38.6 L (42.0-52.0) % MCH 35.3 H (25.0-34.0) pg RDW Std Deviation 46.5 H (36.4-46.3) fL Neut # (Auto) 7.38 H (1.40-6.50) K/uL Lymph # (Auto) 0.73 L (1.20-3.40) K/uL [place] # (Auto) 0.80 H (0.11-0.59) K/uL Sodium 125 L (136-145) mmol/L Chloride 88 L (98-107) mmol/L Glucose 105 H (70-99(Fasting)) mg/dl Diagnostic Findings Lumbar Spine CT 10/17/23 21:51 Exam(s): CT L SPINE EXAM: CT Lumbar Spine Without Intravenous Contrast CLINICAL HISTORY: Reason for exam: Trauma. TECHNIQUE: Axial computed tomography images of the lumbar spine without intravenous contrast. CTDI is 49 mGy and DLP is 2775 mGy-cm. Automated exposure control was utilized for the study. A dose lowering technique was utilized adhering to the principles of ALARA. COMPARISON: No relevant prior studies available. FINDINGS: Artifacts: Thoracolumbar fusion construct is intact. Multilevel degenerative disc disease. Multiple disc spacers in place. No hardware complication. Multilevel decompression. Artifact related to the hardware. No grossly evident high-grade canal stenosis. Vertebrae: Superior endplate compression deformity at L2 is age indeterminate. Favored chronic but cannot say definitively without a comparison. Soft tissues: No acute abnormality. Cortical cysts in the kidneys bilaterally. IMPRESSION: Superior endplate compression deformity at L2 is age indeterminate. Favored chronic but cannot say definitively without a comparison. Otherwise no acute fracture or hardware complication. Electronically signed by: Dilan Ramsay MD 10/18/23 00:[address] 10/17/23 21:51 Exam(s): CT T SPINE EXAM: CT Thoracic Spine Without Intravenous Contrast CLINICAL HISTORY: Reason for exam: Trauma. TECHNIQUE: Axial computed tomography images of the thoracic spine without intravenous contrast. CTDI is 49 mGy and DLP is 2775 mGy-cm. Automated exposure control was utilized for the study. A dose lowering technique was utilized adhering to the principles of ALARA. COMPARISON: No relevant prior studies available. FINDINGS: Vertebrae: Flowing ventral osteophytes throughout the thoracic spine. Acute horizontal fracture extending through the anterior osteophyte at T9- 10. This fracture involves the T10 anterior superior endplate and extends into the T9-10 disc space. No posterior cortical buckling or significant vertebral height loss. No fracture of the posterior elements or malalignment. Status post vertebral augmentation at T5. Postsurgical changes at T11-12 with intact hardware. No epidural collection or spinal canal stenosis. Soft tissues: Unremarkable. IMPRESSION: Acute horizontal fracture extending through the anterior osteophyte at T9- 10. This fracture involves the T10 anterior superior endplate and extends into the T9-10 disc space. No posterior cortical buckling or significant vertebral height loss. No fracture of the posterior elements. No malalignment. Electronically signed by: Dilan Ramsay MD 10/18/23 00:29 AM PG Care Time/CCT Total # of Minutes Spent Total Time Spent with Patient: Total time spent is greater than 50% in coordination of care (as documented) at patient's floor/unit and/or counseling patient: Coding Level of Care Code 81507 SUB INP/OBS CARE MIN Diagnoses Thoracic vertebral fracture S22.079A Encounter type: initial encounter Fracture morphology: unspecified fracture morphology Fracture type: closed Thoracic vertebra fracture level: T9 B12 deficiency E53.8 Closed L2 vertebral fracture S32.029A Encounter type: initial encounter Fracture morphology: unspecified fracture morphology Acute low back pain M54.50 Back pain laterality: unspecified Neurogenic claudication due to lumbar spinal stenosis M48.062 Neuropathy G62.9 Hypertension I10 Hyponatremia E87.1 (1) Thoracic vertebral fracture Encounter type: initial encounter Fracture morphology: unspecified fracture morphology Fracture type: closed Thoracic vertebra fracture level: T9 Qualified Code(s): S22.079A - Unspecified fracture of T9-T10 vertebra, initial encounter for closed fracture (3) Closed L2 vertebral fracture Encounter type: initial encounter Fracture morphology: unspecified fracture morphology Qualified Code(s): S32.029A - Unspecified fracture of second lumbar vertebra, initial encounter for closed fracture (4) Acute low back pain Back pain laterality: unspecified
[2023-10-20 06:22] LABS: Basophils # (auto) 0.04 K/uL (0.00-0.20); Basophils % (auto) 0.3 %; Eosinophils # (auto) 0.06 K/uL (0.00-0.50); Eosinophils % (auto) 0.4 %; Hematocrit (blood only) 37.8 % (42.0-52.0); Hemoglobin 13.1 g/dl (14.0-18.0); Immature Granulocytes # (auto) 0.06 K/uL (0.01-0.20); Immature Granulocytes % (auto) 0.4 %; Lymphocytes # (auto) 0.56 K/uL (1.20-3.40); Lymphocytes % (auto) 3.9 %; Mean Corpuscular Hemoglobin 35.4 pg (25.0-34.0); Mean Corpuscular Hgb Conc 34.7 g/dL (32.0-36.0); Mean Corpuscular Volume 102.2 fL (80.0-100.0); Mean Platelet Volume 10.1 fL (9.4-12.4); Monocytes # (auto) 0.95 K/uL (0.11-0.59); Monocytes % (auto) 6.6 %; Neutrophils # (auto) 12.64 K/uL (1.40-6.50); Neutrophils % (auto) 88.4 %; Platelet Count 173 K/uL (130-400); RDW Standard Deviation 49.4 fL (36.4-46.3); White Blood Count 14.31 K/ul (4.8-10.8)
[2023-10-20 06:41] LABS: Albumin Level 3.8 gm/dl (3.4-5.0); BUN Creatinine Ratio 19.9 (10-20); Calcium 9.9 mg/dl (8.6-10.3); Creatinine Clr Calc Pharmacy 72.9 ml/min; Est GFR (African American) 62.8 ml/min; Est GFR (Non-African American) 54.2 ml/min; Magnesium 2.1 mg/dl (1.7-2.4); Phosphorus 3.9 mg/dl (2.5-4.9)
--- NOTE | 2023-10-20 12:24 | XRay Report ---
XR thoracic spine 3V routine CLINICAL HISTORY: Standing films with brace COMPARISON STUDY: Thoracic spine CT October 17, 2023. Thoracic spine radiographs March 30, 2023. FINDINGS: Thoracolumbar spine fusion hardware is partially imaged. Visualized portions of the hardwar e are intact. Status post T5 vertebroplasty. Extensive anterior osteophytosis of the thoracic spine i s again noted. The nondisplaced horizontal fracture through anterior osteophytes and the superior end plate of T10 on CT of October 17, 2023 is not well-visualized by radiography. However, alignment appear s anatomic. No additional acute fractures are identified within the thoracic spine. IMPRESSION: 1. Anatomic alignment of the thoracic spine. Extensive anterior osteophytosis of the thoracic spine. 2. The horizontal nondisplaced fracture through anterior osteophytes and the superior endplate of T10 as well as the T9-T10 disc space on prior CT is not well-visualized by radiography. 3. Status post T5 vertebroplasty and thoracolumbar spine fusion. ACT 112: Negative or not required by law. Electronically signed by: Som Tong M.D. 10/20/2023 12:21 PM
[2023-10-20] MEDS: FUROSEMIDE 20 MG TAB PO SCH (12:31)
--- NOTE | 2023-10-20 13:40 | Orthopedic Progress Note ---
Date of Service October 20, 2023 Assessment & Plan (1) Thoracic vertebral fracture: Plan: At this time he should wear his brace at all times when ambulating. Will consult occupational therapy as well as physical therapy for possible rehab placement. X-rays obtained demonstrate normal alignment of the thoracic spine. Admission and Anticipated Discharge Date Admission Date: October 20, 2023 Subjective Patient struggled with back pain. He struggling with transfers in and out of bed. Denies need leg pain. He is tolerating his brace. Physical Exam Physical Exam: On exam he is up and ambulating with a walker. He is wearing his brace. Results & Data Vital Signs (Past 12 Hours) Vital Signs Temp Pulse Pulse Resp BP Pulse Ox O2 Del Method 10/20/23 11:35 36.6 C 75 18 90/54 L 96 Room Air 10/20/23 07:56 35.6 C L 71 18 115/75 95 Room Air 10/20/23 07:25 36.6 C 79 18 132/78 96 Room Air (1) Thoracic vertebral fracture Encounter type: initial encounter Fracture morphology: unspecified fracture morphology Fracture type: closed Thoracic vertebra fracture level: T9 Qualified Code(s): S22.079A - Unspecified fracture of T9-T10 vertebra, initial encounter for closed fracture
--- NOTE | 2023-10-20 14:30 | Hospitalist Progress Note ---
Date of Service October 20, 2023 Assessment & Plan (1) Thoracic vertebral fracture: Plan: pain, T9- T10 fx TLSO in place pain is better controlled with Oxycodone ortho follows (2) B12 deficiency: Plan: supplement (3) Closed L2 vertebral fracture: Plan: pain control (4) Acute low back pain: Plan: continue pain control (5) Neurogenic claudication due to lumbar spinal stenosis: (6) Neuropathy: Plan: on Neurontin (7) Hypertension: Plan: BP is a little low, will Hold Losartan for now continue Coreg (8) Hyponatremia: Plan: sodium 124->123 ->125-127 hold HCTZ monitor BMP Plan Acute T9-10 thoracic vertebral fracture/old L2 vertebral fracture- Admit to medical surgical floor for pain control Acetaminophen 650 mg by mouth every 6 hours as needed for mild pain or fever Oxycodone 10 mg by mouth every 4 hours as needed for moderate pain Dilaudid 1 mg IV every 4 hours as needed for severe pain Zofran 4 mg IV every 6 hours as needed Toradol 15 mg IV every 6 hours as needed for breakthrough pain Lidoderm patch Dr. Dunbar follows patient, brace in place Hypertension- on Coreg hold Losartan due to soft BP and K 5.0 Peripheral neuropathy/history of lumbar spinal stenosis- Continue gabapentin 600 mg p.o. 3 times daily, give his evening dose now Admission and Anticipated Discharge Date Admission Date: October 20, 2023 Subjective Patient struggled with back pain. He struggling with transfers in and out of bed. Denies need leg pain. He is tolerating his brace. Had BM yesterday, requests more Miralax Review of Systems Review of Systems: The patient denies chest pain, palpitations, shortness of breath, dyspnea on exertion, cough, lower extremity swelling, sore throat, fevers, chills, sweats, weight change, fatigue, nausea, vomiting, diarrhea , constipation, abdominal pain, pelvic pain, blood in urine or stool, dysuria, urinary frequency or urgency, lightheadedness, dizziness, headache, memory loss, loss of consciousness, rash, abnormal bruising or bleeding, imbalance, focal or generalized weakness, numbness or tingling in arms, generalized arthralgias or myalgias, neck pain, or night sweats. The review of systems is otherwise negative other than for that already noted above, and at least 10 systems have been reviewed. Physical Exam Physical Exam: head atraumatic neck supple chest CTA b/l heart S1S2 regular abdomen soft, nt, nd, bs extremities no edema neuro AAO times 3 Results & Data Results & Data Vital Signs (Past 12 Hours) Vital Signs Temp Pulse Pulse Resp BP Pulse Ox O2 Del Method 10/20/23 11:35 36.6 C 75 18 90/54 L 96 Room Air 10/20/23 07:56 35.6 C L 71 18 115/75 95 Room Air 10/20/23 07:25 36.6 C 79 18 132/78 96 Room Air PG Care Time/CCT Total # of Minutes Spent Total Time Spent with Patient: Total time spent is greater than 50% in coordination of care (as documented) at patient's floor/unit and/or counseling patient: Coding Level of Care Code 05756 SUB INP/OBS CARE 2/35MIN Diagnoses Thoracic vertebral fracture S22.079A Encounter type: initial encounter Fracture morphology: unspecified fracture morphology Fracture type: closed Thoracic vertebra fracture level: T9 B12 deficiency E53.8 Closed L2 vertebral fracture S32.029A Encounter type: initial encounter Fracture morphology: unspecified fracture morphology Acute low back pain M54.50 Back pain laterality: unspecified Neurogenic claudication due to lumbar spinal stenosis M48.062 Neuropathy G62.9 Hypertension I10 Hyponatremia E87.1 (1) Thoracic vertebral fracture Encounter type: initial encounter Fracture morphology: unspecified fracture morphology Fracture type: closed Thoracic vertebra fracture level: T9 Qualified Code(s): S22.079A - Unspecified fracture of T9-T10 vertebra, initial encounter for closed fracture (3) Closed L2 vertebral fracture Encounter type: initial encounter Fracture morphology: unspecified fracture morphology Qualified Code(s): S32.029A - Unspecified fracture of second lumbar vertebra, initial encounter for closed fracture (4) Acute low back pain Back pain laterality: unspecified
[2023-10-20] MEDS: POLYETHYLENE (MIRALAX) 17 GM PACK PO ONE (16:45)
[2023-10-21] MEDS ORDERED: bisacodyL 10 MG SUPP PR PRN (08:12)
[2023-10-21] MEDS: MAGNESIUM HYDROXIDE SUSP 30 ML UDC PO PRN (09:10)
[2023-10-21 09:38] LABS: Calcium 9.7 mg/dl (8.6-10.3); Creatinine Clr Calc Pharmacy 99.1 ml/min; Est GFR (African American) 91.1 ml/min; Est GFR (Non-African American) 78.6 ml/min; Potassium 5.1 mmol/L (3.5-5.1)
[2023-10-21 09:44] LABS: Hematocrit (blood only) 36.1 % (42.0-52.0); Hemoglobin 12.4 g/dl (14.0-18.0); Mean Corpuscular Hemoglobin 35.9 pg (25.0-34.0); Mean Corpuscular Hgb Conc 34.3 g/dL (32.0-36.0); Mean Corpuscular Volume 104.6 fL (80.0-100.0); Mean Platelet Volume 10.2 fL (9.4-12.4); Platelet Count 191 K/uL (130-400); RDW Coefficient of Variation 13.5 % (11.5-14.5); RDW Standard Deviation 51.8 fL (36.4-46.3); Red Blood Count 3.45 M/uL (4.70-6.10); White Blood Count 13.99 K/ul (4.8-10.8)
--- NOTE | 2023-10-21 15:54 | Hospitalist Progress Note ---
Date of Service October 21, 2023 Assessment & Plan (1) Thoracic vertebral fracture: Plan: pain, T9- T10 fx TLSO in place pain is better controlled with Oxycodone ortho following Patient tells me that Dr. Dunbar will see him over the weekend to clear him for discharge PT/OT cleared him for discharge to home (2) B12 deficiency: Plan: supplement (3) Closed L2 vertebral fracture: Plan: pain control (4) Acute low back pain: Plan: continue pain control (5) Neurogenic claudication due to lumbar spinal stenosis: (6) Neuropathy: Plan: on Neurontin (7) Hypertension: Plan: BP fair, will Hold Losartan for now continue Coreg (8) Hyponatremia: Plan: sodium 124->123 ->125-127 hold HCTZ monitor BMP Admission and Anticipated Discharge Date Admission Date: October 20, 2023 Subjective Patient feels well. Denies chest pain or shortness of breath. Review of Systems Review of Systems: All systems reviewed & are unremarkable except as noted in Subjective Physical Exam Physical Exam: General: Awake, conversant Heart: S1, S2/regular rate and rhythm, no murmur rubs or gallops Lungs: Clear to auscultation bilaterally. Normal effort Abdomen: Soft/nontender/nondistended. No hepatosplenomegaly Extremities: No clubbing/cyanosis. No edema Behavior: Appropriate, cooperative Results & Data Results & Data Vital Signs (Past 12 Hours) Vital Signs Temp Pulse Resp BP Pulse Ox O2 Del Method 10/21/23 07:20 36.8 C 67 18 112/69 96 Room Air Laboratory Results Abnormal lab results 10/21/23 10/21/23 Range/Units 05:51 05:54 WBC 13.99 H (4.8-10.8) K/ul RBC 3.45 L (4.70-6.10) M/uL Hgb 12.4 L (14.0-18.0) g/dl Hct 36.1 L (42.0-52.0) % MCV 104.6 H (80.0-100.0) fL MCH 35.9 H (25.0-34.0) pg RDW Std Deviation 51.8 H (36.4-46.3) fL Sodium 131 L (136-145) mmol/L Chloride 97 L (98-107) mmol/L BUN 26 H (6-23) mg/dl BUN/Creatinine Ratio 26.0 H (10-20) Glucose 107 H (70-99(Fasting)) mg/dl PG Care Time/CCT Total # of Minutes Spent Total Time Spent with Patient: Total time spent is greater than 50% in coordination of care (as documented) at patient's floor/unit and/or counseling patient: Coding Level of Care Code 92742 SUB INP/OBS CARE 2/35MIN Diagnoses Thoracic vertebral fracture S22.079A Encounter type: initial encounter Fracture morphology: unspecified fracture morphology Fracture type: closed Thoracic vertebra fracture level: T9 B12 deficiency E53.8 Closed L2 vertebral fracture S32.029A Encounter type: initial encounter Fracture morphology: unspecified fracture morphology Acute low back pain M54.50 Back pain laterality: unspecified Neurogenic claudication due to lumbar spinal stenosis M48.062 Neuropathy G62.9 Hypertension I10 Hyponatremia E87.1 (1) Thoracic vertebral fracture Encounter type: initial encounter Fracture morphology: unspecified fracture morphology Fracture type: closed Thoracic vertebra fracture level: T9 Qualified Code(s): S22.079A - Unspecified fracture of T9-T10 vertebra, initial encounter for closed fracture (3) Closed L2 vertebral fracture Encounter type: initial encounter Fracture morphology: unspecified fracture morphology Qualified Code(s): S32.029A - Unspecified fracture of second lumbar vertebra, initial encounter for closed fracture (4) Acute low back pain Back pain laterality: unspecified
[2023-10-22 07:05] VITALS: BP 131/76; PULSE 66; RESP 16; TEMP 97.7; O2SAT 95
--- NOTE | 2023-10-22 10:38 | Discharge Summary ---
Date of Service October 22, 2023 Admission HPI Per Admitting Provider The patient is a 63-year-old male with a past medical history including hypertension, B12 deficiency, bilateral peripheral neuropathy, obesity, history of multiple back surgeries. He presents to the emergency department as noted above. His pain was unable to be controlled well in the emergency department, and he was referred for evaluation for admission for pain control and to follow- up with orthopedic spine surgery in the hospital Admission Exam Per Admitting Provider The patient is awake, alert and oriented 3, well developed and well nourished, normocephalic and atraumatic, lying in bed and in no acute distress. HEENT--PERRL, EOMI, mucous membranes and oropharynx mildly dry. Neck--supple. No JVD. No bruits. Thyroid normal, trachea midline, no adenopathy. Heart--normal S1 and S2. No murmurs, rubs or gallops. Lungs--clear bilaterally, no respiratory distress, no accessory muscle use. Abdomen--normal bowel sounds and soft. Nontender. Nondistended, no hernias or masses, no organomegaly. Extremities--no cyanosis or clubbing. No edema. There are good distal pulses b/l. Dermatologic--normal skin turgor, normal color, no abnormal lymph nodes, no rash. Neurologic--cranial nerves II through XII grossly intact. Rheumatologic-- Limited exam due to lower thoracic spine pain Psychiatric--normal affect. Principal Diagnosis Acute thoracic (T9-10) vertebral fracture Discharge Exam General: Awake, conversant Heart: S1, S2/regular rate and rhythm, no murmur rubs or gallops Lungs: Clear to auscultation bilaterally. Normal effort Abdomen: Soft/nontender/nondistended. No hepatosplenomegaly Extremities: No clubbing/cyanosis. No edema Behavior: Appropriate, cooperative Discharge Data Allergies Allergy/AdvReac Type Severity Reaction Status Date / Time No Known Allergies Allergy Verified 10/17/23 22:39 Consultations 10/18/23 02:31 ED Decision to Admit Stat 10/18/23 02:53 Consult Orthopedic Spine Surgery Routine Ordered Studies 10/17/23 21:51 CT lumbar spine wo con Stat CT thoracic spine wo con Stat Hospital Course (1) Thoracic vertebral fracture: pain, T9- T10 fx TLSO in place pain is better controlled with Oxycodone Orthospine involved Follow-up with Dr. Dunbar in 1 week PT/OT cleared him for discharge to home (2) B12 deficiency: supplement (3) Closed L2 vertebral fracture: pain control (4) Acute low back pain: continue pain control (5) Neurogenic claudication due to lumbar spinal stenosis: (6) Neuropathy: on Neurontin (7) Hypertension: Continue Coreg Losartan held due to mildly elevated creatinine Hydrochlorothiazide held due to hyponatremia Added Norvasc for better blood pressure control (8) Hyponatremia: sodium 124->123 ->125-127 hold HCTZ monitor BMP Total Time Total Time Spent Total Time Spent (In Minutes): 35 Discharge Plan Discharge Items Patient Disposition: Home - Self-Care Reason For Visit: ACUTE T9-10 VERTERBRAL FRACTURE Discharge Diagnosis: Acute thoracic (T9-10) vertebral fracture Condition on Discharge: Good Activity: Resume your previous activity Non-emergency contact: Primary Care Provider Call non-emergency contact if: you have any medication questions and your symptoms worsen Follow-up/Referrals: Brad Dunbar DO [Surgeon] - Arnie Kim DO [Primary Care Provider] - Diet: Heart Healthy Addtl Attending Provider Instructions: Advised to follow-up with PCP in 1 week Advised to follow-up with Dr. Dunbar in 1 week Pending Studies at Discharge: No Stand-Alone Forms: My [facility] Medications and DC Order Prescriptions: New amlodipine [Norvasc] 5 mg Tablet 5 mg PO QAM 30 Days Qty: 30 0RF oxycodone 5 mg Tablet 10 mg PO Q6 PRN (Reason: pain) Qty: 40 0RF lidocaine 5 % Adhesive Patch,Medicated 1 patch transdermal HS Qty: 15 0RF docusate sodium [Colace] 100 mg capsule 100 mg PO DAILY Qty: 14 0RF Continued carvedilol 6.25 mg tablet 6.25 mg PO BID Qty: 180 3RF gabapentin 300 mg capsule 600 mg PO TID 90 Days Qty: 540 1RF aspirin 81 mg tablet,delayed release (DR/EC) 81 mg PO QAM cyanocobalamin (vitamin B-12) 1,000 mcg capsule 1,000 mcg PO DAILY Qty: 30 0RF Discontinued hydrochlorothiazide 25 mg tablet 12.5 mg PO QAM Qty: 45 3RF losartan 50 mg tablet 50 mg PO BID Qty: 180 3RF Discharge Orders: Discharge Order (Routine); Ordered 10/22/23 Ordered By: Carlos Damico Admission Data Admit Date/Time: 10/20/23 11:39 Attending Provider: Carlos Damico Admit Provider: Rickey Santoyo Primary Care Provider: Arnie Kim Other Providers: Brad Dunbar; Rickey Santoyo
[2023-10-22] MEDS: amLODIPine BESYLATE 5 MG TAB PO SCH (10:50)
== END 2023-10-22 12:14 | disposition home or self-care (01) | DRG 552 ==
LOC: 3E 21:13 → ED 21:13 → SUATTDRO 10-18 02:40 → 3E 10-18 03:34 → SUATTDRO 10-20 11:39